=== PATIENT | male | born 1960 | race Caucasian/White ===

== ENCOUNTER → 2018-05-26 14:41 | Outpatient (CLI) | payer OTHER, SELFPAY ==
--- NOTE | 2018-05-26 14:44 | CT_ITS ---
EXAM: CT LUNG LOW DOSE WO CONTRAST TECHNIQUE: The exam was performed on a GE Light Speed [address] scanner using 2.92 mGy CTDI. A low dose helical CT CHEST was performed on a multi-detector scanner The LDCT was performed in a facility that meets the criteria for the screening program. Data regarding this exam was submitted to ACR which is an approved registry. The order for this exam indicates that it came as a result of a lung cancer screening counseling shard decision-making visit that included all the elements required of such a visit including smoking cessation. The radiologist interpreting this exam meets the CMS criteria for the LDCT lung cancer screening program. The exam is reported using the Lung-RADS classification scale and reported to the ACR registry. NOTE: This study was performed for the specific purposes of lung cancer screening and is not an alternative to diagnostic chest CT. RADIATION DOSE: CTDI vol(CT dose Index-volume) = 2.9mG DLP (Dose Length Product) = 110.72 mGcm COMPARISON: 08/21/[address] screening chest HISTORY: Smoker currently. One pack per day for 40 years; = 40 pack-year 5 7 male asymptomatic with greater than 30 pack-year smoking history FINDINGS: No worrisome nor appearing lung nodules or masses in either right or left lung/chest . A few tiny barely appreciable less than 3 mm peripheral nodules at the periphery of the RUL and ASIF towards apex axial image 19. These appear stable and most likely reflects some minor chronic changes, minor scarring, minor fibrocalcific changes. Some of these tiny foci are calcified suggesting granulomatous disease. Again these appear stable, benign with no progression. Continuing inferiorly continuing to the mid chest there is a small partially calcified granuloma subpleural location axial image 40. Stable. A larger 6 mm calcified granuloma, just lateral to the right yvan on axial image 44. With a similar calcified granuloma towards right CP angle, up to 7 mm mm size. These are benign features, appear stable but again noted. Left lung. Tiny calcified granuloma measuring less than 3 mm posterior ASIF axial image 54 COPD with centr lobar emphysematous changes. Scattered tiny blebs most evident about the periphery the lung price at apices. But also blebs seen scattered throughout the lung price for example bleb moderate bleb centrally at lower lobes Airways disease: Hyperinflation with attenuation of peripheral pulmonary vessels& Mild bronchial thickening consistent with obstructive chronic bronchitis Fibrosis: There are few scattered small pneumatoceles in the lung bases OTHER ANATOMIC REGIONS Lymph Nodes: Small Calcified mediastinal and right hilar nodes again observed reflecting old granulomatous disease. No significant enlarged lymph nodes evident. Only Scattered small nodes otherwise noted . Pleura: Unremarkable Cardiac: Upper normal size OTHER FINDINGS: No other pertinent findings evident ---------IMPRESSION: 1. Lung RADS Category: 2 Benign appearing nodules. Mainly note Benign granulomatous nodules . Follow-up in one year suggested 2. Other findings: Emphysematous change with obstructive chronic bronchitis and evidence of old granulomatous disease 3. Incidental 3.2 cm benign-appearing renal cyst at the lower posterior left kidney RECOMMENDATIONS: 12 month LDCT follow-up
== END ==
PROVIDERS: Family Provider Family Medicine; PCP Family Medicine; Visit Provider Family Medicine
DX: Z12.2 Encounter for screening for malignant neoplasm of respiratory organs (principal); Z87.891 Personal history of nicotine dependence

== ENCOUNTER → 2018-06-17 08:48 | Outpatient (POV) | payer OTHER, SELFPAY | PROVIDERS: Visit Provider Otolaryngology | DX: Z00.00 Encounter for general adult medical examination without abnormal findings (principal) ==

== ENCOUNTER → 2019-12-04 14:49 | Outpatient (CLI) | payer OTHER, SELFPAY ==
--- NOTE | 2019-12-04 14:53 | CT_ITS ---
PROCEDURE: CT LUNG SCREENING CLINICAL INDICATION: H/O NICOTINE DEPENDENCE Forty-one pack-year smoking history, asymptomatic for lung cancer COMPARISON: LUNGSCREEN CT lung screening from 05/26/2018 TECHNIQUE: The exam was performed on a GE Light Speed [address] scanner using 2.90 mGy CTDI. A low dose helical CT CHEST was performed on a multi-detector scanner. All CT scans at the facility use one or more dose reduction, viz: automated exposure control, ma/kV adjustment per patient size (including targeted exams where dose is matched to indication, i.e. head), or iterative reconstruction technique. The LDCT was performed in a facility that meets the criteria for the screening program. Data regarding this exam was submitted to ACR which is an approved registry. The order for this exam indicates that it came as a result of a lung cancer screening counseling shard decision-making visit that included all the elements required of such a visit including smoking cessation. The radiologist interpreting this exam meets the CMS criteria for the LDCT lung cancer screening program. The exam is reported using the Lung-RADS classification scale and reported to the ACR registry. NOTE: This study was performed for the specific purposes of lung cancer screening and is not an alternative to diagnostic chest CT. RADIATION DOSE: CTDI vol(CT dose Index-volume) = 2.90mG DLP (Dose Length Product) = 107.07 mGcm Lung Rads Category: FINDINGS: COPD with centrilobular emphysema the 5 mm fissural nodule right middle lobe. Scattered calcified granulomas. OTHER FINDINGS: Mild dilatation of the ascending aorta measuring up to 4.3 x 4.3 cm previously 4 x 4.2 cm. IMPRESSION: Lung rads category 2, benign findings Recommend annual screening LD CT The mild aneurysmal dilatation of the ascending aorta very slightly more prominent compared to the previous exam Dictated by: Issa Watson MD 12/06/2019 13:17 Electronically signed by Issa Watson MD in [place] 12/06/2019 13:17
== END ==
PROVIDERS: PCP Family Medicine; Visit Provider Family Medicine
DX: Z87.891 Personal history of nicotine dependence (principal); Z12.2 Encounter for screening for malignant neoplasm of respiratory organs

== ENCOUNTER → 2020-06-02 14:07 | Outpatient (CLI) | payer OTHER, SELFPAY | PROVIDERS: PCP Family Medicine; Visit Provider Family Medicine | DX: R05 Cough (principal) | CPT/HCPCS: 94060 ==

== ENCOUNTER → 2020-12-06 15:14 | Outpatient (CLI) | payer OTHER, SELFPAY ==
--- NOTE | 2020-12-06 15:18 | CT_ITS ---
PROCEDURE: CT LUNG SCREENING CLINICAL INDICATION: H/O NICOTINE DEPENDENCE Current smoker 45 pack year smoking history Prior on pacs COMPARISON: CT CT LUNG SCREENING from 12/04/2019 TECHNIQUE: The exam was performed on a GE Light Speed [address] scanner using 2.90 mGy CTDI. A low dose helical CT CHEST was performed on a multi-detector scanner. All CT scans at the facility use one or more dose reduction, viz: automated exposure control, ma/kV adjustment per patient size (including targeted exams where dose is matched to indication, i.e. head), or iterative reconstruction technique. The LDCT was performed in a facility that meets the criteria for the screening program. Data regarding this exam was submitted to ACR which is an approved registry. The order for this exam indicates that it came as a result of a lung cancer screening counseling shard decision-making visit that included all the elements required of such a visit including smoking cessation. The radiologist interpreting this exam meets the CMS criteria for the LDCT lung cancer screening program. The exam is reported using the Lung-RADS classification scale and reported to the ACR registry. NOTE: This study was performed for the specific purposes of lung cancer screening and is not an alternative to diagnostic chest CT. RADIATION DOSE: CTDI vol(CT dose Index-volume) = 2.90mG DLP (Dose Length Product) = 99.25 mGcm FINDINGS: COPD with centrilobular and paraseptal emphysema. Old granulomatous disease. No new suspicious nodules evident. OTHER FINDINGS: Mild fusiform dilatation of the ascending aorta 4.3 x 4.4 cm not significantly changed.. IMPRESSION: Lung-RADS Category 1 Negative Follow-up: Continue annual screening with LDCT in 12 months Dictated by: Issa Watson MD 12/09/2020 12:30 Issa Watson MD in [place] 12/09/2020 12:30
== END ==
PROVIDERS: PCP Family Medicine; Visit Provider Family Medicine
DX: Z87.891 Personal history of nicotine dependence (principal)
CPT/HCPCS: 71271

== ENCOUNTER → 2020-12-30 16:17 | Outpatient (CLI) | payer OTHER, SELFPAY | PROVIDERS: Visit Provider Internal Medicine Gastroenterology | DX: Z01.812 Encounter for preprocedural laboratory examination (principal); Z20.822 Contact with and (suspected) exposure to COVID-19; Z12.11 Encounter for screening for malignant neoplasm of colon | CPT/HCPCS: U0003 ==

== ENCOUNTER 2021-01-02 09:55 | Day surgery (SDC) | payer OTHER, SELFPAY ==
[2020-12-27 14:04] VITALS: BMI 28.8
[2021-01-02 10:30] VITALS: BP 143/91; PULSE 65; RESP 18; TEMP 36.5; O2SAT 98
--- NOTE | 2021-01-02 10:46 | HMH.ANESCL ---
[facility] Anesthesia Checklist - Patient Identification Patient Identification: Arm Band - Structural Data Admitted From: Home Planned Operative Procedure/s: Colonoscopy Consent for Planned Operative Procedure(s) Verified: Yes - NPO Status Verified Time NPO: 00:00 - Airway Assessment C-Spine Mobility Assessed: Yes TMJ Mobility Assessed: Yes Dentition: Dentures-good fit - Neurological Assessment Level of Consciousness: Awake Hx Seizures: No Numbness or tingling in extremities: No - Anesthesia Plan Anesthesia Risk discussed: Yes Anesthesia Plan: Verified ASA Class: II Anesthesia Type: MAC [facility] History I have reviewed the patient's past medical history: Yes Medical History: Denies:: Cancer, Diabetes Mellitus Type 1, Diabetes Mellitus Type 2, Internal Pacemaker, MRSA, Seizures *Have you ever received a pneumonia vaccine?: No *Have you received a flu vaccine this season?: Yes Anesthesia experience/problems:: None Other Surgeries: No: Pacemaker Amputation: No Fractures: No - *Social History Smoking Status: Current every day smoker Tobacco Type: cigarettes # Packs/Day (cigarettes): 1 Alcohol Intake: never Substance Use Type: denies use *Occupational Status:: employed Housing: house *Travel in the last 8 weeks: None Family Hx:: Unable to obtain
--- NOTE | 2021-01-02 11:49 | HMH.PROC ---
[facility] Procedure Note Procedure Note:: Colonoscopy Procedure Report: Colonoscopy Endoscopist: Joseph Kearns II, MD Referring physician: Silver Tanner MD Date of Procedure: January 02, 2021 Equipment: Olympus 190 variable stiffness pediatric colonoscope Sedation: MAC sedation Indication: Mr. Figueroa is a 60-year-old gentleman who is here for follow-up screening/surveillance colonoscopy. He had a colonoscopy in May 2011 (Dr. Calin Miranda M.D.) and had a single small (4 mm) polyp (tubular adenoma) removed. He reports no abdominal pain, weight loss, change in his bowel habits or rectal bleeding. He reports no family history of colon cancer. Procedure: Prior to the procedure, a history and physical exam was performed, and patient's medications and allergies were reviewed. The risks, benefits and alternatives of the sedation and procedure were discussed with the patient. All questions were answered and informed consent was obtained. The patient was brought to the procedure room. Patient identification and proposed procedure were verified by the physician and the nurse. The patient was placed in a left lateral decubitus position and the scope was passed under direct vision. Throughout the procedure, the patient's blood pressure, pulse, and oxygen saturations were monitored continuously. The colonoscopy was accomplished without difficulty. The patient tolerated the procedure well. Findings: On digital rectal examination there was normal rectal tone. There were no external hemorrhoids. The colonoscope was introduced through the anal canal to the rectum and advanced to the cecum. The ileocecal valve and appendiceal orifice were identified. The scope was advanced a short distance into the ileum which appeared grossly normal. The scope was then withdrawn into the colon. The cecum, ascending, transverse, descending, sigmoid and rectum were grossly normal. There were no mucosal abnormalities identified. Upon retroflexion within the rectum there were grade 1-2 internal hemorrhoids.The preparation was poor throughout with Sonoma Preparation Score of 5 out of 9. The cecal time was 10 minutes. Impression: 1. Poor bowel preparation 2. Normal colonoscopy 3. Grade 1-2 internal hemorrhoids Plan: Based upon the patient's poor bowel preparation, would still consider surveillance at 5 years especially with prior adenomatous polyp.
[2021-01-02 11:51] VITALS: BP 113/71; PULSE 71; RESP 12; TEMP 36.2; O2SAT 93
[2021-01-02 12:01] VITALS: BP 118/74; PULSE 60; RESP 16; O2SAT 98
[2021-01-02 12:11] VITALS: BP 131/87; PULSE 55; RESP 16; O2SAT 97
[2021-01-02 12:21] VITALS: BP 135/86; PULSE 66; RESP 16; TEMP 36.2; O2SAT 99
[2021-01-02 13:33] VITALS: O2SAT 97
== END 2021-01-02 12:22 | disposition home or self-care (01) ==
LOC: OUTP 09:56
PROVIDERS: PCP Family Medicine; Visit Provider Internal Medicine Gastroenterology
PROC: 0DJD8ZZ Inspection of Lower Intestinal Tract, Via Natural or Artificial Opening Endoscopic (ICD-10-PCS; CPT 45378; principal; 2021-01-02 11:00)
DX: Z12.11 Encounter for screening for malignant neoplasm of colon (principal); Z86.010 Personal history of colon polyps; K64.0 First degree hemorrhoids; Z72.0 Tobacco use; Z79.899 Other long term (current) drug therapy
CPT/HCPCS: 45378

== ENCOUNTER → 2021-01-24 16:10 | Outpatient (CLI) | payer OTHER, SELFPAY ==
--- NOTE | 2021-01-24 16:15 | XR_ITS ---
PROCEDURE INFORMATION: Exam: XR Right Knee Exam date and time: 01/24/2021 4:15 PM Age: 60 years old Clinical indication: Pain; Knee; Right; Additional info: Pain in RT knee TECHNIQUE: Imaging protocol: XR Right knee. Views: 3 views. COMPARISON: CR [id number] 04/12/2017 3:28 PM FINDINGS: Bones/joints: There is no evidence of acute fracture. There is no evidence of joint malalignment or dislocation. There are mild degenerative changes of the knee joint, predominantly involving the medial joint compartment. Small joint effusion. Soft tissues: There are no soft tissue masses or fluid collections. IMPRESSION: 1. No evidence of acute fracture. 2. No evidence of acute dislocation. 3. There are mild degenerative changes of the knee joint, predominantly involving the medial joint compartment. 4. Small joint effusion.
--- NOTE | 2021-01-24 16:15 | XR_ITS ---
PROCEDURE INFORMATION: Exam: XR Left Knee Exam date and time: 01/24/2021 4:15 PM Age: 60 years old Clinical indication: Pain; Knee; Left; Additional info: Pain in lt knee TECHNIQUE: Imaging protocol: XR Left knee. Views: 3 views. COMPARISON: No relevant prior studies available. FINDINGS: Bones/joints: There is no evidence of acute fracture. There is no evidence of joint malalignment or dislocation. Small joint effusion. Hypertrophic spurring noted along the superior pole of patella. Mild prepatellar soft tissue swelling. Soft tissues: There are no soft tissue masses or fluid collections. IMPRESSION: 1. No evidence of acute fracture. 2. No evidence of acute dislocation. 3. Small joint effusion. 4. Mild prepatellar soft tissue swelling.
== END ==
PROVIDERS: PCP Family Medicine; Visit Provider Family Medicine
DX: M25.562 Pain in left knee (principal); M25.561 Pain in right knee
CPT/HCPCS: 73562

== ENCOUNTER → 2021-09-16 08:40 | Outpatient (CLI) | payer OTHER, SELFPAY ==
[2021-09-16 09:27] LABS: Basophils # 0.1 K/mm3 (0-0.2); Basophils % 1.7 % (0.1-2.0); Eosinophils # 0.1 K/mm3 (0.0-0.4); Eosinophils % 2.1 % (0.1-12.0); Hemoglobin 16.2 g/dL (14.1-18.0); Lymphocytes # 1.3 K/mm3 (0.7-4.5); Lymphocytes % 24.2 % (10-50); Mean Corpuscular Hemoglobin 32.6 pg (27.0-31.2); Mean Corpuscular Volume 98.8 fl (80-94); Mean Platelet Volume 9.1 fl (7.4-10.4); Monocytes # 0.4 K/mm3 (0.1-1.0); Neutrophils # 3.6 K/mm3 (1.8-7.8); Platelet Count 250 K/mm3 (142-424); Red Blood Count 4.95 M/mm3 (4.60-6.20); Red Cell Distribution Width 14.9 % (11.5-17.5); White Blood Count 5.5 K/mm3 (4.8-10.8)
[2021-09-16 09:29] LABS: Chloride 106 mmol/L (98-107); Potassium 3.9 mmoL/L (3.5-5.1); Sodium 133 mmol/L (136-145)
[2021-09-16 09:32] LABS: Anion Gap 9.9 mEq/L (5-15); Blood Urea Nitrogen 24 mg/dl (9-20); Calcium 9.6 mg/dl (8.4-10.2); Carbon Dioxide 21 mmol/L (22.0-30.0); Estimated Glomerular Filt Rate 98 ml/min (>60); GFR (African American) 119 ML/MIN (>60); Glucose 177 mg/dl (74-100)
== END ==
PROVIDERS: PCP Family Medicine; Visit Provider Surgery
DX: Z01.812 Encounter for preprocedural laboratory examination (principal); Z11.52 Encounter for screening for COVID-19; L72.9 Follicular cyst of the skin and subcutaneous tissue, unspecified
CPT/HCPCS: 80048; 85025; C9803; U0003; U0005

== ENCOUNTER 2021-09-19 06:13 | Day surgery (SDC) | payer OTHER, SELFPAY ==
[2021-09-19 06:32] VITALS: BP 147/88; PULSE 85; RESP 18; TEMP 37.1; O2SAT 96; BMI 28.0
--- NOTE | 2021-09-19 07:08 | HMH.GSHP ---
HPI HPI: Patient is a 61-year-old male from [facility] referred by Bailey Ahmadi for cyst on his back. He states that he has had a cyst on the lower thoracic area for about 1 year. He states that it has intermittently become infected. He had undergone incision and drainage about [address] Tanner. Recently he had a recurrent infection and required incision and drainage by Bailey Ahmadi. He has been on antibiotics for about 10 days. He states the area is somewhat tender concerning for recurrent infection. [facility] History I have reviewed the patient's past medical history: Yes Medical History: Denies:: Cancer, Diabetes Mellitus Type 1, Diabetes Mellitus Type 2, Internal Pacemaker, MRSA, Seizures *Have you ever received a pneumonia vaccine?: No *Have you received a flu vaccine this season?: Yes Other Medical History: Denies: Blood Transfusion Reaction Other Surgeries: Yes: Colonoscopy. No: Pacemaker Amputation: No Fractures: No - *Social History Last grade of school completed: High school graduate Smoking Status: Current every day smoker Tobacco Type: cigarettes # Packs/Day (cigarettes): 1 Alcohol Intake: never Substance Use Type: denies use *Occupational Status:: employed Housing: house *Travel in the last 8 weeks: None Family Hx:: Unable to obtain Review of Systems - Review of Systems Review of systems:: pertinent systems reviewed and negative unless documented below Meds Home Medications Medication Instructions Recorded Confirmed Type Amlodipine Besylate 10 mg PO DAILY 01/02/21 08/14/21 History Atorvastatin Calcium [Lipitor 20mg 20 mg PO HS 01/02/21 08/14/21 History Tablet*] Loratadine [Claritin 10mg 10 mg PO DAILY 01/02/21 08/14/21 History Tablet] Meloxicam 15 mg PO DAILY 01/02/21 08/14/21 History Montelukast Sodium 10 mg PO DAILY 01/02/21 08/14/21 History Zolpidem Tartrate 10 mg PO HS 01/02/21 08/14/21 History Sulfamethoxazole/Trimethoprim 1 tab PO BID 09/19/21 History [Sulfamethoxazole-Tmp Ds Tablet*] Allergies Allergy/AdvReac Type Severity Reaction Status Date / Time No Known Allergies Allergy Verified 08/14/21 10:20 Exam Vital signs and Labs for Last 24 Hours: Temp Pulse Resp BP Pulse Ox 98.8 F 85 18 147/88 H 96 09/19/21 06:32 09/19/21 06:32 09/19/21 06:32 09/19/21 06:32 09/19/21 06:32 I & O for Last 24 hours: Intake & Output 09/16/21 09/17/21 09/18/21 09/19/21 11:59 11:59 11:59 11:59 Weight 190 lb - Constitutional no acute distress - *Routine HEENT Exam Head: Present: normocephalic Eye: Present: EOMI, PERRL ENT: Present: mucous membranes moist - *Routine Neck Exam Present: supple. Absent: lymphadenopathy - *Routine Respiratory Exam Present: CTA bilaterally - *Routine Cardiovascular Exam Present: RRR - *Routine Abdominal Exam Present: soft, normoactive bowel sounds. Absent: tenderness - *Routine Rectal Exam Rectal:: deferred - *Routine Genitalia Exam Genitalia:: deferred - *Routine Extremities Exam Absent: cyanosis, clubbing, edema - *Routine Skin Exam Present: warm. Absent: rash Comments: Left Lower back area of sebaceous cyst with scar tissue from repeated infection and previous I&D - *Routine Neurological Exam Present: alert, oriented X3 Assessment and Plan - Assessment and plan all Dx Assessment and Plan for all problems:: Patient has sebaceous cyst with surrounding scar tissue from previous infection and I&D. Plan for excision, hopefully with primary closure.
--- NOTE | 2021-09-19 09:02 | P.PN_ITS ---
[facility] Anesthesia Checklist - Patient Identification Patient Identification: Arm Band, Verbal (Name & ) - Structural Data Admitted From: Home Planned Operative Procedure/s: Excision of back cyst Consent for Planned Operative Procedure(s) Verified: Yes Verified Documents: Surgical Consent - NPO Status Verified Time NPO: 00:00 - Additional verifications Anesthesia Reactions: No Hx Blood Transfusions: No Blood Transfusion Reaction: No - Airway Assessment C-Spine Mobility Assessed: Yes TMJ Mobility Assessed: Yes Dentition: Partials - Anesthesia Plan Anesthesia Risk discussed: Yes ASA Class: III Anesthesia Type: MAC [facility] History Medical History: Denies:: Cancer, Diabetes Mellitus Type 1, Diabetes Mellitus Type 2, Internal Pacemaker, MRSA, Seizures *Have you ever received a pneumonia vaccine?: No *Have you received a flu vaccine this season?: Yes Other Medical History: Denies: Blood Transfusion Reaction Anesthesia experience/problems:: none Other Surgeries: Yes: Colonoscopy. No: Pacemaker Amputation: No Fractures: No - *Social History Last grade of school completed: High school graduate Smoking Status: Current every day smoker Tobacco Type: cigarettes # Packs/Day (cigarettes): 1 Alcohol Intake: never Substance Use Type: denies use *Occupational Status:: employed Housing: house *Travel in the last 8 weeks: None Family Hx:: Unable to obtain
[2021-09-19 09:30] VITALS: BP 84/57; PULSE 81; RESP 18; TEMP 36.7; O2SAT 97
--- NOTE | 2021-09-19 09:32 | P.OP_ITS ---
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 He states that he has had a cyst on the lower thoracic area for about 1 year. He states that it has intermittently become infected. He had undergone incision and drainage about [address] Tanner. More recently he had a recurrent infection and required incision and drainage by Bailey Ahmadi. He has been on antibiotics. When he was seen in the office about 4 or 5 weeks ago the area was somewhat tender and mildly infected. Options were discussed with the patient. Plan was made for excision after balaji ral weeks with possible primary closure. Upon presentation the day of procedure the area appeared to be not infected. There was a cyst which was somewhat ill- defined with an relatively extensive amount of surrounding scar tissue from previous incision and drainage and infection. Operative findings:: Consistent with ruptured sebaceous cyst Operative note:: Consent was obtained patient was taken the operating room. Adequate intravenous sedation was achieved. He was positioned in lateral position. The area was prepped and draped in the standard surgical fashion. Lesion was marked with a skin marker for planned elliptical incision encompassing the palpable cyst and skin punctum. Local anesthetic was infiltrated. Elliptical incision was performed. All of the scar tissue was not able to be excised. Dissection was carried down through full-thickness of the skin to the subcutaneous tissue. There was some fibrous scar tissue encountered. Cyst capsule was identified. There was evidence of prior rupture. It was excised along with the overlying skin tissue and the additional cyst wall. The wound was irrigated. Hemostasis was achieved with electrocautery. The deep dermal tissues were reapproximated with interrupted 2-0 Vicryl. Skin was closed with interrupted 3-0 nylon. Clean dry sterile dressing was applied. Condition: stable Disposition: PACU Specimens:: Sebaceous cyst. Complications:: None immediately apparent
[2021-09-19 09:45] VITALS: BP 120/78; PULSE 74; RESP 18; O2SAT 99
[2021-09-19 10:00] VITALS: BP 141/87; PULSE 66; RESP 18; O2SAT 100
[2021-09-19 10:10] VITALS: BP 137/94; PULSE 69; RESP 18; O2SAT 100
== END 2021-09-19 10:10 | disposition home or self-care (01) ==
LOC: OR 06:15
PROVIDERS: PCP Family Medicine; Visit Provider Surgery
PROC: (CPT 11406; principal; 2021-09-19 07:30)
DX: L72.0 Epidermal cyst (principal); Z72.0 Tobacco use; Z79.899 Other long term (current) drug therapy
CPT/HCPCS: 11406; 12031; 96374; J2405

== ENCOUNTER → 2022-01-12 14:11 | Outpatient (CLI) | payer OTHER, SELFPAY ==
--- NOTE | 2022-01-12 14:14 | CT_ITS ---
FINAL REPORT CLINICAL HISTORY: 61-year-old current smoker with a 40 pack-year history. FINDINGS: Axial images were obtained from the lung apex to the mid abdomen by computed tomography. Low-dose protocol was utilized. CTDl vol(mGy): 2.90 DLP (mGy-cm): 96.38 FINDINGS: There is no axillary adenopathy. There is no hilar or mediastinal adenopathy. An ascending aorta aneurysm is stable at 4.4 cm. The heart size is normal. There is no pericardial or pleural effusion. Limited images of the upper abdomen are unremarkable. Lung window images demonstrate no suspicious infiltrate or nodule. There is moderate emphysema. There is mild scarring. There are multiple calcified granulomas. IMPRESSION: Lung RADS category 1. Recommend 12 month follow-up low-dose chest CT. Reviewed, Interpreted and Dictated by Shan Bach III, MD Transcribed by Kerry Nunez Authenticated and . [facility]
== END ==
PROVIDERS: PCP Family Medicine; Visit Provider Family Medicine
DX: Z87.891 Personal history of nicotine dependence (principal); Z12.2 Encounter for screening for malignant neoplasm of respiratory organs
CPT/HCPCS: 71271

== ENCOUNTER → 2022-11-07 15:01 | Outpatient (CLI) | payer OTHER, SELFPAY ==
--- NOTE | 2022-11-07 | CA_ITS ---
FINAL REPORT TECHNIQUE: Multiple transverse and longitudinal images were performed of right the femoral-popliteal deep venous system with augmentation and compression maneuvers. CLINICAL HISTORY: HTN, hyperlipidemia, smoker, right knee replacement 08/16/22. 10/29/22 patient went for a walk and right leg started hurting. States he had sharp pain in right calf that extended into the foot. COMPARISON: none FINDINGS: Right lower extremity duplex ultrasound demonstrates normal flow in the deep venous system. There is no abnormal echogenicity to suggest thrombus. There is normal compression and augmentation. IMPRESSION: No evidence of right DVT. Reviewed, Interpreted and Dictated by Radha Anthony MD Transcribed by Padmaja Lugo Authenticated and [facility]
== END ==
PROVIDERS: PCP Family Medicine; Visit Provider Physician Assistant
DX: M79.661 Pain in right lower leg (principal)
CPT/HCPCS: 93971

== ENCOUNTER → 2023-06-11 15:15 | Outpatient (CLI) | payer OTHER, SELFPAY ==
--- NOTE | 2023-06-11 15:19 | CT_ITS ---
FINAL REPORT TECHNIQUE: Axial images were obtained from the lung apex to the mid abdomen by computed tomography. This study was performed with techniques to keep radiation doses as low as reasonably achievable (ALARA). Individualized dose reduction techniques using automated exposure control or adjustment of mA and/or kV according to the patient's size were employed. CLINICAL HISTORY: H/O TOBACCO USE, current smoker, 1/2 pack per day for 40 years, pts brother had lung cancer COMPARISON: 01/12/2022 FINDINGS: CHEST CT LOW DOSE CTDI vol (mGy): 2.90 DLP (mGy-cm): 96.38 There is no axillary adenopathy. There is no hilar or mediastinal adenopathy. The ascending aorta is aneurysmal measuring 4.4 cm, stable. The heart is normal in size. There is no pericardial or pleural effusion. Lung window images demonstrate no suspicious infiltrate or nodule. There are several calcified granulomas. Moderate emphysema is identified. Limited images of the upper abdomen are unremarkable. IMPRESSION: Lung RADS category 1. Recommend 12 month follow-up low-dose chest CT. Reviewed, Interpreted and Dictated by Shan Bach III, MD Transcribed by Gabriela Brown Authenticated and [facility]
== END ==
PROVIDERS: PCP Family Medicine; Visit Provider Family Medicine
DX: Z87.891 Personal history of nicotine dependence (principal); Z12.2 Encounter for screening for malignant neoplasm of respiratory organs
CPT/HCPCS: 71271

== ENCOUNTER 2024-06-18 15:12 | Outpatient (CLI) | payer BC, SELFPAY ==
--- NOTE | 2024-06-18 15:14 | CT_ITS ---
FINAL REPORT TECHNIQUE: Thin section axial images were obtained from the lung apices to the upper abdomen by computed tomography. Reformatted images were obtained and reviewed. This study was performed with techniques to keep radiation doses al low as reasonably achievable (ALARA). Individualized dose reduction techniques using automated exposure control or adjustment of mA and/or kV according to the patient's size were employed. CLINICAL HISTORY: .screening, current smoker 1 ppd x45 years COMPARISON: 06/11/2023 FINDINGS: CHEST CT LOW DOSE 64-year-old male, current smoker, 24-jbow-ldri history CTDI vol (mGy): 2.9 DLP (mGy-cm): 107.59 There is no axillary adenopathy. There is no mediastinal or hilar mass or adenopathy. The heart is normal in size. There is an ascending aortic aneurysm, which measures 4.5 centimeters in diameter, stable since the prior CT of 2022. There is no pericardial or pleural effusion. There is moderate emphysema and mild pulmonary scarring. Lung window images demonstrate numerous calcified granulomas. No suspicious nodule is seen.. Limited images of the upper abdomen reveal a partially visualized low-attenuation focus in the left kidney, 38 mm in size, which cannot be accurately characterized without the administration of intravenous contrast. This area was not imaged on the prior LDCT of 2022. IMPRESSION: Lung-RADS category 1 S, the S designation for the partially visualized mass in the left kidney.. Recommend 12 month follow up low dose chest CT. Partially visualized low-attenuation focus in the left kidney, 30 mm in diameter, not accurately characterized without intravenous contrast administration. Would consider renal mass protocol CT for further evaluation. Reviewed, Interpreted and Dictated by Shan Bach III, MD Transcribed by Jessica Cheatham Authenticated and [facility]
== END 2024-06-18 23:59 | disposition home or self-care (01) ==
LOC: RAD 15:13
PROVIDERS: PCP Family Medicine; Visit Provider Family Medicine
DX: Z87.891 Personal history of nicotine dependence (principal); Z12.2 Encounter for screening for malignant neoplasm of respiratory organs
CPT/HCPCS: 71271

== ENCOUNTER 2024-07-15 08:34 | Outpatient (CLI) | payer BC, SELFPAY ==
--- NOTE | 2024-07-15 08:40 | CT_ITS ---
FINAL REPORT TECHNIQUE: Pre and post contrast images of the abdomen were obtained. IV contrast was administered. Coronal and sagittal reformatted images were also obtained and reviewed.This study was performed with techniques to keep radiation doses as low as reasonably achievable (ALARA). Individualized dose reduction techniques using automated exposure control or adjustment of mA and/or kV according to the patient's size were employed. CLINICAL HISTORY: KIDNEY MASS COMPARISON: CT low-dose 06/18/2024 FINDINGS: The lung bases are clear. The heart is normal in size. The liver has an unremarkable appearance, without evidence of mass or biliary ductal dilatation. The spleen is unremarkable. No adrenal mass is present. The pancreas has an unremarkable appearance. There are multiple left renal masses. Two have the appearance of simple cysts. The mass in the upper pole of the left kidney measures 30 mm and does not have the appearance of the cyst. This shows diffuse contrast-enhancement and is consistent with renal neoplasm. A second mass in the lower pole of the left kidney measures 17 mm and also shows diffuse enhancement, consistent with renal neoplasm. There is a less than 1 cm cyst in the right kidney. There is no hydronephrosis. The renal veins are normal. The aorta is normal in caliber. Vascular calcifications are noted. There is no free fluid or adenopathy. The appendix is normal. There is a small umbilical hernia containing fat. There are no other areas of contrast-enhancement. IMPRESSION: Two left renal masses consistent with renal neoplasm. Reviewed, Interpreted and Dictated by Shan Bach III, MD Transcribed by Padmaja Lugo Authenticated and [facility]
[2024-07-15 09:10] LABS: Blood Urea Nitrogen 18 mg/dl (9-20); Estimated Glomerular Filt Rate 75 ml/min (>60); GFR (African American) 91 ML/MIN (>60)
[2024-07-15] MEDS: IOPAMIDOL-370 (76%);100ML BOTTLE 75 ML IV (09:42)
[2024-07-15] MEDS: SODIUM CHLORIDE 0.9% 10ML SYR (RAD ONLY) 10 ML IV (09:42)
== END 2024-07-15 23:59 | disposition home or self-care (01) ==
LOC: RAD 08:35
PROVIDERS: PCP Family Medicine; Visit Provider Family Medicine
DX: D41.02 Neoplasm of uncertain behavior of left kidney (principal)
CPT/HCPCS: 36415; 74170; 82565; 84520; Q9967

== ENCOUNTER 2025-02-24 07:34 | Outpatient (CLI) | payer BC, SELFPAY ==
--- OUTSIDE RECORDS SUMMARY | 2024-09-09 07:30 | XMS_ITS ---
Author Organization [facility] Address [address] [facility] [address] [place] [phone] Care Team Providers Care Manager Fraud Name Role Phone Silver Tanner Primary Care Provider [phone] Allergies No Known Allergies Results Component Value [...] 09/09/2024 Encounters Encounter Location Date Provider Diagnosis [facility] [address] [id number] 09/09/2024 Silver Tanner Acute URI J06.9 and [...] [address], [address], [place], [place], [phone], Progress Notes * Devin FIGUEROADOB:1960 (64 yo M)Acc No.[id number]:09/09/2024 Progress Notes Patient: Devin BROWNE Provider: Ronnie Tanner M.D. :1960 A ge:64 Y S ex:Male Date:09/09/2024 Address:[address] [place] [address] [place], [place], [id number] Subjective: * Chief Complaints: * 1 . [...] yes. Marital Status: . Occupation: [employer] in [place], [place]. Past smoking status: yes, PPD:1 , [...] * Procedure Codes: 9 4760 [place], [address] CAPILLARY BLOOD DRAW, 28859 CBC WITH AUTO DIFF * Follow Up: v ia phone to report progress * Images: Billing Information: * Visit Code: 87039 Office Visit, Est Pt., Level 3. * Procedure Codes: [address] [place]. [address] CAPILLARY BLOOD DRAW. 89950 CBC WITH AUTO DIFF. * Electronic signature of Maribell Tanner MD on 02/24/2025 at 07:37 AM EDT Sign off status: Pending * Provider: Ronnie Tanner M.D. Date: 0 09/09/2024 Generated for Madalyn hernandez/Salma/eTransmitting on: 0 02/24/2025 07:37 AM EDT History and Physical Notes * [...]
--- OUTSIDE RECORDS SUMMARY | 2024-11-25 12:15 | XMS_ITS ---
Author Organization [facility] Address [address] [facility] [address] [place], [place] [id number] Care Team Providers Care Lockstitch Machine Operator Name Role Phone Silver Tanner Primary Care Provider [phone] Allergies No Known Allergies Results Component Value Reference Range Notes P-Comprehensive Metabolic Pa flaco (CMP) Reviewed date:12/01/2024 04:46:42 PM Interpretation:Cr 1.57, gfr 59 Performing Lab: Notes/Report: Test performed by [facility] [address] [place] [address] , [address], [place] [address] Renaldo Schwab MD, [employer] Supervisor CLIA: [id number] Sodium 140 135-145 mmol/L Potassium 4.4 3.5-5.3 [...] Interpretation:6.0 Performing Lab: Notes/Report: Test performed by [facility] [address] [place] [address] [address] Renteria C, [place] [address] Renaldo Schwab MD, [employer] Supervisor CLIA: [id number] Hemoglobin A1C 6.0 <5.7 % The following HbA1c ranges recommended by the [place] [employer] (ADA) may be used as an aid in the diagnosis of diabetes mellitus. HbA1c Suggested Diagnosis >=6.5% Diabetic 5.7% - 6.4% Pre-Diabetic <5.7% Non-Diabetic P-Lipid Panel Reviewed date:12/01/2024 04:46:42 PM Interpretation:trigs 178 Performing Lab: Notes/Report: Test performed by [facility] [address] [place], [place] [address] [place] Melissa Renteria C, [place] [address] Renaldo Schwab MD, Automobile Body Repair Supervisor CLIA: [id number] Cholesterol 149 <200 mg/dL Triglycerides 178 <150 [...] Interpretation:Normal Performing Lab: Notes/Report: Test performed by [facility] , [address], [place] [address] Renaldo Schwab MD, Automobile [employer] Rep[employer] Supervisor CLIA: [id number] PSA 0.56 <4.00 ng/mL Please note this is an ultrasensitive PSA assay with a lower limit of detection of 0.014 ng/mL. This test is performed by the [employer] ECLIA methodology. Values obtained with different assay methods or kits cannot be directly compared. P-TSH reflex to FT4 Reviewed date:12/01/2024 04:46:43 PM Interpretation:Normal Performing Lab: Notes/Report: Test performed by [facility] , [address], [place] [address] Renaldo Schwab MD, Automobile [employer] Rep[employer] Supervisor CLIA: [id number] TSH reflex to FT4 1.79 0.43-5.25 mU/L P-Microalbumin/Creatinine, R andom Urine Sample Reviewed date:12/01/2024 04:46:43 PM Interpretation:a/c 75 Performing Lab: Notes/Report: Test performed by [facility] , [address], [place] [address] Renaldo Schwab MD, Automobile Body Repair Supervisor CLIA: [id number] Albumin/Creatinine Ratio, Urine 75 0-30 ug/mg Microalbumin, Urine, Random 9.9 Creatinine, Urine 132.0 P-Uric Acid Reviewed date:12/01/2024 04:46:43 PM Interpretation:Normal Performing Lab: Notes/Report: Test performed by [facility] , [address], [place] [address] Renaldo Schwab MD, [employer] Body Rep[employer] Supervisor CLIA: [id number] Uric Acid 6.6 3.4-8.0 mg/dL Estimated Average Glucose Reviewed date:12/01/2024 04:46:43 PM Interpretation:125 Performing Lab: Notes/Report: Test performed by [facility] [address] [place] [address] , [address], [place] [address] Renaldo Schwab MD, Automobile Body Repair Supervisor CLIA: [id number] Estimated Average Glucose (eAG) 125 Estimated Average [...] W/U Status Risk Notes Problem Vitamin D deficiency (91945917) Vitamin D deficiency, unspecified (E55.9) Active confirmed Problem BMI 30.0-30.9,adult (Z68.30) Active confirmed Vital Signs Blood pressure systolic 130 mm Hg 11/26/19 25 Blood pressure diastolic 84 mm Hg 025 Heart Rate 82 /min 11/25/2024 Height 69 in 11/25/2024 Weight 204.4 lbs 11/25/2024 BMI 30.18 kg/m2 11/25/2024 Encounters Encounter Location Date Provider Diagnosis Satya [address] [facility] [facility] [address] [facility] [address] [place] [phone] 11/25/2024 Silver Tanner Essential hypertensi on I10 [...] Name:Silver briggs, 05/26/2025 04:15:00 PM, [address] [facility], [address], [place], [phone], Progress Notes * Devin GAGEDOB:1960 (64 yo M)Acc No.[id number]:11/25/2024 Progress Notes Patient: Devin BROWNE Provider: Ronnie Tanner M.D. :1960 A ge:64 Y S ex:Male Date:11/25/2024 Address:[address] [place] [address], [id number] Subjective: * Chief Complaints: * 1 . [...] yes. Marital Status: . 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 Past smoking status: yes, PPD:1 , [...] /p nephrectomy - Z90.5 8 . B MS 30.0-30.9,adult - Z68.30 ? Plan: * Treatment: [...] stimated Average Glucose 125 - mg/dL * [facility], IT support 11/27/2024 09:30:14 : This order was created by the Interface. Kayley Morgan 12/01/2024 04:46:36 PM > See phone encounter * Procedure Codes: 3 075F SYST BP GE 130 - 139MM HG, 3079F DIAST BP 80-89 MM HG, 3044F HG A1C LEVEL LT 7.0% * Follow Up: 6 Months * Images: Billing Information: * Visit Code: 04167 Office Visit, Est Pt., Level 4. * Procedure Codes: 3075F SYST BP GE 130 - 139MM HG. 3079F DIAST BP 80-89 MM HG. 3044F HG A1C LEVEL LT 7.0%. * Electronic signature of Maribell Tanner MD on 02/24/2025 at 07:37 AM EDT Sign off status: Pending * Provider: Ronnie Tanner M.D. Date: 0 11/25/2024 Generated for Madalyn ng/Faxing/eTransmitting on: 0 02/24/2025 07:37 AM EDT History [...]
--- OUTSIDE RECORDS SUMMARY | 2025-02-03 12:30 | XMS_ITS ---
[facility] [address] [place] [id number] Care Team Providers Care Upholstery Instructor Name Role Phone Ciro Silver Primary Care Provider [phone] Bailey Ahmadi Unavailable [phone] Allergies No Known Allergies Reason For Referral Diagnosis 1 Hernia (K46.9) Referral Organization [facility] Referring Provider First Name Bailey Referring Provider Last Name Daiana Referring Provider Speciality Physician Videotape Recording Engineer Referred Provider Specialty General Surg simba General Notes Bailey Ahmadi 04:28:51 PM >Pt needs to see Dr. Chamberlain or Liz. Please call patient after 4pm., Nayeli Carson 02/04/2025 09:24:08 AM > lv for [...] [address] [place], [place] [phone] 02/03/2025 Bailey Ahmadi Hernia K46.9 Assessments Encounter Date Diagnosis (ICD Code) Assessment Notes Treatment Notes Treatment Clinical Notes Section Notes 02/03/2025 Hernia (ICD-10 - K46.9) Plan Of Treatment Referrals Referral Date Details 02/03/2025 02/03/2025 Next Appt Details Follow Up: with surgery, Ana Cristina son: Provider Name:Silver Alexander , 05/26/2025 04:15:00 PM, [address], [address], [place], [place], [id number], Progress Notes * Devin GAGEDOB:1960 (64 yo M)Acc No.[id number]:02/03/2025 Progress Notes Patient: Devin BROWNE Provider: KISHA Pina :1960 A ge:64 Y S ex:Male Date:02/03/2025 Address:[address] [place], [place] [id number] Pcp:Silver Tanner Subjective: * Chief Complaints: * [...] yes. Marital Status: . 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 Past smoking status: yes, PPD:1 , [...] * Images: Billing Information: * Visit Code: 02120 Office Visit, Est Pt., Level 3. * Procedure Codes: * Electronic signature of KISHA Ndiaye on 02/24/2025 at 07:36 AM EDT Sign off status: Pending * Provider: KISHA Pina Date: 0 02/03/2025 Generated for Madalyn hernandez/Salma/eTransmitting on: 0 02/24/2025 07:36 AM EDT History and Physical Notes * [...]
--- OUTSIDE RECORDS SUMMARY | 2025-02-24 07:37 | XMS_ITS | Data Portability ---
Author Organization [facility] [place] & RUBEN Ken ADMIN Address [address] [place] [id number] Assessment No assessment recorded. Plan of Treatment Reminders Order Date Submit Date Provider Last Modified By Organization Details Last Modified Time Details Appointments OV EST 15 2024 10:00A M FLORENCE SIMMONS MD Not available Not available Not available Lab urinalysi s, dipstick 2024 025 [email or web address] [facility], [address], [place], [address], 08/27/2024 11:04:48 culture, urine 2024 025 [email or web address] [facility] (Registration ), [address], [place], [address], 08/31/2024 08:19:49 CBC 2023 024 [facility] (Registration ), [address], [place], [address], 07/31/2024 13:00:03 CMP, serum or plasma 2023 024 [facility] (Registration ), [address] [place], [address], 07/31/2024 12:58:52 PSA, serum or plasma 2023 024 [facility] (Registration ), [address], [place], [address], 07/31/2024 12:58:54 Referral None recorded. Procedures bladder scan (PROC) 2024 025 [email or web address] [facility], [address] [facility] [place], [address], 08/27/2024 11:04:48 bladder scan (PROC) 2023 024 [email or web address] [facility], [address] [facility] [address], [place], [address], 07/31/2024 12:06:37 Surgeries nephrecto my, hand assisted laparosco pic (SURG) 2023 024 [email or web address] Not available 08/19/2024 11:48:44 Imaging None recorded. Medication Orders None recorded. Patient TargetsNo targets recorded. Patient InstructionsNo instructions recorded. Reason for Referral None Reported. Results Created Date Observation Date Name Description Value Unit Range Abnormal Flag Note LastModifiedBy Organization Detail LastModifiedTime 07/31/20 24 07/31/2024 CBC NO DIFF (HEMO GRAM) WBC 5.0 K/uL 4.0-10 .5 Not Available [facility] ([facility]) [address] [place], [address], 07/31/2024 12:10:10 07/31/20 24 07/31/2024 CBC NO DIFF (HEMO GRAM) RBC 5.1 M/mm3 4.7-6. 1 Not Available [facility] ([facility]) [address] [place], [address], 07/31/2024 12:10:10 07/31/20 24 07/31/2024 CBC NO DIFF (HEMO GRAM) HGB 15.7 gm/dL 13.5-1 8.0 Not Available [facility] ([facility]) [address] [place], [address], 07/31/2024 12:10:10 07/31/20 24 07/31/2024 CBC NO DIFF (HEMO GRAM) HCT 48.2 % 42.0-5 2.0 Not Available [facility] ([facility]) [address], [place], [address], 07/31/2024 12:10:10 07/31/20 24 07/31/2024 CBC NO DIFF (HEMO GRAM) MCV 95.1 fL 78-100 Not Available [facility] ([facility]) [address], [place], [address], 07/31/2024 12:10:10 07/31/20 24 07/31/2024 CBC NO DIFF (HEMO GRAM) MCH 31.0 pg 27-31 Not Available [facility] ([facility]) [address], [place], [address], 07/31/2024 12:10:10 07/31/20 24 07/31/2024 CBC NO DIFF (HEMO GRAM) MCHC 32.6 g/dL 32-36 Not Available [facility] ([facility]) [address], [place], [address], 07/31/2024 12:10:10 07/31/20 24 07/31/2024 CBC NO DIFF (HEMO GRAM) RDW 14.2 % 11.5-1 4.0 high Not Available [facility] ([facility]) [address], [place], [address], 07/31/2024 12:10:10 07/31/20 24 07/31/2024 CBC NO DIFF (HEMO GRAM) platelet count 206 K/uL 150-45 0 Not Available [facility] ([facility]) [address] [place], [address], 07/31/2024 12:10:10 07/31/20 24 07/31/2024 CBC NO DIFF (HEMO GRAM) MPV 9.5 fL 6-9.5 Not Available [facility] ([facility]) [address], [place], [address], 07/31/2024 12:10:10 07/31/20 24 07/31/2024 CBC NO DIFF (HEMO GRAM) manual differential NO Not Available [facility] ([facility]) [address] , [place], [address], 07/31/2024 12:10:10 07/31/20 24 07/31/2024 COMP METAB OLIC PANEL sodium 138 mmol/ L 136-14 5 Not Available [facility] ([facility]) [address] , [place], [address], 07/31/2024 12:58:52 07/31/20 24 07/31/2024 COMP METAB OLIC PANEL potassium 4.0 mmol/ L 3.6-5. 0 Not Available [facility] ([facility]) [address] , [place], [address], 07/31/2024 12:58:52 07/31/20 24 07/31/2024 COMP METAB OLIC PANEL chloride 104 mmol/ L 98-107 Not Available [facility] ([facility]) [address] , [place], [address], 07/31/2024 12:58:52 07/31/20 24 07/31/2024 COMP METAB OLIC PANEL carbon dioxide 23.5 mmol/ L 21.0-3 2.0 Not Available [facility] ([facility]) [address] , [place], [address], 07/31/2024 12:58:52 07/31/20 24 07/31/2024 COMP METAB OLIC PANEL anion gap 14.5 Not Available [facility] ([facility]) [address] , [place], [address], 07/31/2024 12:58:52 07/31/20 24 07/31/2024 COMP METAB OLIC PANEL glucose 95 mg/dL 70-120 Not Available [facility] ([facility]) [address] , [place], [address], 07/31/2024 12:58:52 07/31/20 24 07/31/2024 COMP METAB OLIC PANEL BUN 20 mg/dL 7-18 high Not Available [facility] ([facility]) [address], [place], [address], 07/31/2024 12:58:52 07/31/20 24 07/31/2024 COMP METAB OLIC PANEL creatinine 1.0 mg/dL 0.6-1. 3 Not Available [facility] ([facility]) [address] , [place], [address], 07/31/2024 12:58:52 07/31/20 24 07/31/2024 COMP METAB OLIC PANEL glomerular filtration rate 85 mlper min 60- GFR LIMIT ATION : The eGFR equat ion CKD-E PI 2020 is not appli cable for pedia tric patie nts or great er than 90 years of age. The follo wing condi tions may alter the GFR resul t: extre mes in body size, malnu triti on or obesi ty, skele ralph muscl e disea se, parap legia or quadr ipleg ia, veget lisy diet or rapid ly [place] ing kiney funct ion. Not Available [facility] ([facility]) [address] , [place], [address], 07/31/2024 12:58:52 07/31/20 24 07/31/2024 COMP METAB OLIC PANEL total protein 8.2 g/dL 6.4-8. 2 Not Available [facility] ([facility]) [address] , [place], [address], 07/31/2024 12:58:52 07/31/20 24 07/31/2024 COMP METAB OLIC PANEL albumin 4.0 g/dL 3.4-5. 0 Not Available [facility] ([facility]) [address] , [place], [address], 07/31/2024 12:58:52 07/31/20 24 07/31/2024 COMP METAB OLIC PANEL globulin 4.2 Not Available [facility] ([facility]) [address], [place], [address], 07/31/2024 12:58:52 07/31/20 24 07/31/2024 COMP METAB OLIC PANEL alb/glob ratio 1.0 0.7-2 Not Available [facility] ([facility]) [address] , [place], [address], 07/31/2024 12:58:52 07/31/20 24 07/31/2024 COMP METAB OLIC PANEL calcium 9.0 mg/dL 8.5-10 .5 Not Available [facility] ([facility]) [address] , [place], [address], 07/31/2024 12:58:52 07/31/20 24 07/31/2024 COMP METAB OLIC PANEL bilirubin total 1.00 mg/dL 0.10-1 .00 Not Available [facility] ([facility]) [address] , [place], [address], 07/31/2024 12:58:52 07/31/20 24 07/31/2024 COMP METAB OLIC PANEL AST (SGOT) 34 U/L 0-37 Not Available [facility] ([facility]) [address] , [place], [address], 07/31/2024 12:58:52 07/31/20 24 07/31/2024 COMP METAB OLIC PANEL ALT (SGPT) 49 U/L 0-65 Not Available [facility] ([facility]) [address] , [place], [address], 07/31/2024 12:58:52 07/31/20 24 07/31/2024 COMP METAB OLIC PANEL alk phosphatase 68 U/L 46-116 Not Available [facility] ([facility]) [address], [place], [address], 07/31/2024 12:58:52 07/31/20 24 07/31/2024 PROST ATE SPECI FIC AG (PSA) prostate specific Ag (PSA) 0.7 NG/mL 0-4.0 Not Available [facility] ([facility]) [address] , [place], [address], 07/31/2024 12:58:54 07/31/20 24 07/31/2024 bladd er scan (PROC ) Calculated Residual Urine: 31cc Not Available [facility]100 [address], [place], [address], 07/31/2024 10:54:27 08/20/19 25 08/20/2024 BASIC METAB OLIC PANEL sodium 134 mmol/ L 136-14 5 low Not Available [facility] ([facility]) [address] , [place], [address], 08/20/2024 05:58:09 08/20/19 25 08/20/2024 BASIC METAB OLIC PANEL potassium 4.5 mmol/ L 3.6-5. 0 Not Available [facility] ([facility]) [address] , [place], [address], 08/20/2024 05:58:09 08/20/19 25 08/20/2024 BASIC METAB OLIC PANEL chloride 100 mmol/ L 98-107 Not Available [facility] ([facility]) [address] [place], [address], 08/20/2024 05:58:09 08/20/19 25 08/20/2024 BASIC METAB OLIC PANEL carbon dioxide 25.3 mmol/ L 21.0-3 2.0 Not Available [facility] ([facility]) [address] , [place], [address], 08/20/2024 05:58:09 08/20/19 25 08/20/2024 BASIC METAB OLIC PANEL anion gap 13.2 Not Available [facility] ([facility]) [address], [place], [address], 08/20/2024 05:58:09 08/20/19 25 08/20/2024 BASIC METAB OLIC PANEL glucose 125 mg/dL 70-120 high Not Available [facility] ([facility]) [address], [place], [address], 08/20/2024 05:58:09 08/20/19 25 08/20/2024 BASIC METAB OLIC PANEL BUN 22 mg/dL 7-18 high Not Available [facility] ([facility]) [address], [place], [address], 08/20/2024 05:58:09 08/20/19 25 08/20/2024 BASIC METAB OLIC PANEL creatinine 1.6 mg/dL 0.6-1. 3 high Not Available [facility] ([facility]) [address], [place], [address], 08/20/2024 05:58:09 08/20/19 25 08/20/2024 BASIC METAB OLIC PANEL glomerular filtration rate 48 mlper min 60- low GFR LIMIT ATION : The eGFR equat ion CKD-E PI 2020 is not appli cable for pedia tric patie nts or great er than 90 years of age. The follo wing condi tions may alter the GFR resul t: extre mes in body size, malnu triti on or obesi ty, skele ralph muscl e disea se, parap legia or quadr ipleg ia, veget lisy diet or rapid ly [place] ing kiney funct ion. Not Available [facility] ([facility]) [address], [place], [address], 08/20/2024 05:58:09 08/20/19 25 08/20/2024 BASIC METAB OLIC PANEL calcium 8.9 mg/dL 8.5-10 .5 Not Available [facility] ([facility]) [address] , [place], [address], 08/20/2024 05:58:09 08/20/19 25 08/20/2024 CBC AUTO W DIFF WBC 14.5 K/uL 4.0-10 .5 high Not Available [facility] ([facility]) [address] , [place], [address], 08/20/2024 06:45:37 08/20/19 25 08/20/2024 CBC AUTO W DIFF RBC 4.3 M/mm3 4.7-6. 1 low Not Available [facility] ([facility]) [address] , [place], [address], 08/20/2024 06:45:37 08/20/19 25 08/20/2024 CBC AUTO W DIFF HGB 13.2 gm/dL 13.5-1 8.0 low Not Available [facility] ([facility]) [address] , [place], [address], 08/20/2024 06:45:37 08/20/19 25 08/20/2024 CBC AUTO W DIFF HCT 40.5 % 42.0-5 2.0 low Not Available [facility] ([facility]) [address] , [place], [address], 08/20/2024 06:45:37 08/20/19 25 08/20/2024 CBC AUTO W DIFF MCV 94.6 fL 78-100 Not Available [facility] ([facility]) [address] , [place], [address], 08/20/2024 06:45:37 08/20/19 25 08/20/2024 CBC AUTO W DIFF MCH 30.8 pg 27-31 Not Available [facility] ([facility]) [address], [place], [address], 08/20/2024 06:45:37 08/20/19 25 08/20/2024 CBC AUTO W DIFF MCHC 32.6 g/dL 32-36 Not Available [facility] ([facility]) [address], [place], [address], 08/20/2024 06:45:37 08/20/19 25 08/20/2024 CBC AUTO W DIFF RDW 13.8 % 11.5-1 4.0 Not Available [facility] ([facility]) [address] , [place], [address], 08/20/2024 06:45:37 08/20/19 25 08/20/2024 CBC AUTO W DIFF platelet count 228 K/uL 150-45 0 Not Available [facility] ([facility]) [address] , [place], [address], 08/20/2024 06:45:37 08/20/19 25 08/20/2024 CBC AUTO W DIFF MPV 9.6 fL 6-9.5 high Not Available [facility] ([facility]) [address] , [place], [address], 08/20/2024 06:45:37 08/20/19 25 08/20/2024 CBC AUTO W DIFF neutrophil% 80.3 % 43-65 high Not Available [facility] ([facility]) [address] , [place], [address], 08/20/2024 06:45:37 08/20/19 25 08/20/2024 CBC AUTO W DIFF lymphocyte% 7.2 % 20.5-4 5.5 low Not Available [facility] ([facility]) [address] [place], [address], 08/20/2024 06:45:37 08/20/19 25 08/20/2024 CBC AUTO W DIFF monocyte% 10.6 % 5.5-11 .7 Not Available [facility] ([facility]) [address] [place], [address], 08/20/2024 06:45:37 08/20/19 25 08/20/2024 CBC AUTO W DIFF eosinophil% 1.4 % 0.9-2. 9 Not Available [facility] ([facility]) [address] [place], [address], 08/20/2024 06:45:37 08/20/19 25 08/20/2024 CBC AUTO W DIFF basophil% 0.1 % 0.2-1. 0 low Not Available [facility] ([facility]) [address] , [place], [address], 08/20/2024 06:45:37 08/20/19 25 08/20/2024 CBC AUTO W DIFF immature granulocytes % 0.4 % 0.0-0. 8 Not Available [facility] ([facility]) [address] [place], [address], 08/20/2024 06:45:37 08/20/19 25 08/20/2024 CBC AUTO W DIFF nucleated red blood cells % 0.0 % Not Available [facility] ([facility]) [address] [place], [address], 08/20/2024 06:45:37 08/20/19 25 08/20/2024 CBC AUTO W DIFF neutrophil# 11.7 K/uL 2.2-4. 8 high Not Available [facility] ([facility]) [address] [place], [address], 08/20/2024 06:45:37 08/20/19 25 08/20/2024 CBC AUTO W DIFF lymphocyte# 1.1 cell/ mcL 1.3-2. 9 low Not Available [facility] ([facility]) [address] [place], [address], 08/20/2024 06:45:37 08/20/19 25 08/20/2024 CBC AUTO W DIFF monocyte# 1.5 cell/ mcL 0.3-0. 8 high Not Available [facility] ([facility]) [address] , [place], [address], 08/20/2024 06:45:37 08/20/19 25 08/20/2024 CBC AUTO W DIFF eosinophil# 0.2 cell/ mcL 0-0.2 Not Available [facility] ([facility]) [address] , [place], [address], 08/20/2024 06:45:37 08/20/19 25 08/20/2024 CBC AUTO W DIFF basophil# 0.0 cell/ mcL 0.0-1. 0 Not Available [facility] ([facility]) [address] , [place], [address], 08/20/2024 06:45:37 08/20/19 25 08/20/2024 CBC AUTO W DIFF immature gramulocytes # 0.06 K/uL Not Available [facility] ([facility]) [address] , [place], [address], 08/20/2024 06:45:37 08/20/19 25 08/20/2024 CBC AUTO W DIFF nucleated red blood cells # 0.00 K/uL Not Available [facility] ([facility]) [address] , [place], [address], 08/20/2024 06:45:37 08/20/1908/20/2024 CBC AUTO W DIFF manual differential YES Not Available [facility] ([facility]) [address] , [place], [address], 08/20/2024 06:45:37 08/20/19 25 08/20/2024 CBC AUTO W DIFF segmented neutrophil 83 % 42-76 high Not Available [facility] ([facility]) [address], [place], [address], 08/20/2024 06:45:37 08/20/19 25 08/20/2024 CBC AUTO W DIFF lymphocyte 6 % 15-41 low Not Available [facility] ([facility]) [address] , [place], [address], 08/20/2024 06:45:37 08/20/19 25 08/20/2024 CBC AUTO W DIFF monocyte 11 % 2-9 high Not Available [facility] ([facility]) [address] , [place], [address], 08/20/2024 06:45:37 08/20/19 25 08/20/2024 CBC AUTO W DIFF platelet estimate ADEQUA TE adequa te Not Available [facility] ([facility]) [address] , [place], [address], 08/20/2024 06:45:37 08/20/19 25 08/20/2024 CBC AUTO W DIFF platelet morphology NORMAL normal Not Available [facility] ([facility]) [address] , [place], [address], 08/20/2024 06:45:37 08/20/1908/20/2024 CBC AUTO W DIFF RBC morphology NORMAL normal Not Available [facility] ([facility]) [address] , [place], [address], 08/20/2024 06:45:37 08/21/19 25 08/21/2024 BASIC METAB OLIC PANEL sodium 134 mmol/ L 136-14 5 low Not Available [facility] ([facility]) [address], [place], [address], 08/21/2024 07:58:39 08/21/19 25 08/21/2024 BASIC METAB OLIC PANEL potassium 3.9 mmol/ L 3.6-5. 0 Not Available [facility] ([facility]) [address] , [place], [address], 08/21/2024 07:58:39 08/21/19 25 08/21/2024 BASIC METAB OLIC PANEL chloride 100 mmol/ L 98-107 Not Available [facility] ([facility]) [address] , [place], [address], 08/21/2024 07:58:39 08/21/19 25 08/21/2024 BASIC METAB OLIC PANEL carbon dioxide 27.1 mmol/ L 21.0-3 2.0 Not Available [facility] ([facility]) [address] [place], [address], 08/21/2024 07:58:39 08/21/19 25 08/21/2024 BASIC METAB OLIC PANEL anion gap 10.8 Not Available [facility] ([facility]) [address] [place], [address], 08/21/2024 07:58:39 08/21/19 25 08/21/2024 BASIC METAB OLIC PANEL glucose 115 mg/dL 70-120 Not Available [facility] ([facility]) [address] [place], [address], 08/21/2024 07:58:39 08/21/19 25 08/21/2024 BASIC METAB OLIC PANEL BUN 20 mg/dL 7-18 high Not Available [facility] ([facility]) [address] [place], [address], 08/21/2024 07:58:39 08/21/19 25 08/21/2024 BASIC METAB OLIC PANEL creatinine 1.5 mg/dL 0.6-1. 3 high Not Available [facility] [address] [place], [address], 08/21/2024 07:58:39 08/21/19 25 08/21/2024 BASIC METAB OLIC PANEL glomerular filtration rate 52 mlper min 60- low GFR LIMIT ATION : The eGFR equat ion CKD-E PI 2020 is not appli cable for pedia tric patie nts or great er than 90 years of age. The follo wing condi tions may alter the GFR resul t: extre mes in body size, malnu triti on or obesi ty, skele ralph muscl e disea se, parap legia or quadr ipleg ia, veget lisy diet or rapid ly [place] ing kiney funct ion. Not Available [facility] ([facility]) [address], [place], [address], 08/21/2024 07:58:39 08/21/19 25 08/21/2024 BASIC METAB OLIC PANEL calcium 8.9 mg/dL 8.5-10 .5 Not Available [facility] ([facility]) [address], [place], [address], 08/21/2024 07:58:39 08/27/19 25 08/27/2024 bladd er scan (PROC ) Calculated Residual Urine: 16 Not Available [facility] [address] [facility] [address], [place], [address], 08/27/2024 10:18:12 08/27/19 25 08/27/2024 urina lysis , dipst ick Leukocytes (reference range) trace Not Available [facility] [address] [facility] [address], [place], [address], 08/27/2024 10:17:15 08/27/19 25 08/27/2024 urina lysis , dipst ick Nitrite (reference range:) negati ve Not Available [facility] [address] [facility] [address], [place], [address], 08/27/2024 10:17:15 08/27/19 25 08/27/2024 urina lysis , dipst ick Protein (reference range) trace Not Available [place] [address], [place], [address], 08/27/2024 10:17:15 08/27/19 25 08/27/2024 urina lysis , dipst ick pH (reference range 5-8.5) 5.0 Not Available [place] [address], [place], [address], 08/27/2024 10:17:15 08/27/19 25 08/27/2024 urina lysis , dipst ick Blood (reference range:) negati ve Not Available [place] [address] [address] [facility] [address], [place], [address], 08/27/2024 10:17:15 08/27/19 25 08/27/2024 urina lysis , dipst ick Specific [place] (reference range) 1.010 Not Available [place] [address] [address] [facility] [address], [place], [address], 08/27/2024 10:17:15 08/27/19 25 08/27/2024 urina lysis , dipst ick Ketone (reference range) negati ve Not Available [place] [address] [address] [facility] [address], [place], [address], 08/27/2024 10:17:15 08/27/19 25 08/27/2024 urina lysis , dipst ick Bilirubin (reference range) negati ve Not Available [place] [address] [address] [facility] [address], [place], [address], 08/27/2024 10:17:15 08/27/19 25 08/27/2024 urina lysis , dipst ick Glucose (reference range) negati ve Not Available [facility], [place], [address], 08/27/2024 10:17:15 08/27/19 25 08/27/2024 urina lysis , dipst ick Color (reference range: yellow-brown ) Yellow Not Available [facility], [place], [address], 08/27/2024 10:17:15 08/10/20 24 12/25/2023 imagi ng/di agnos tic resul t No observ ation record ed. [email or web address] , [place], [address], 02/18/2025 08:30:22 Result Notes None recorded. Problems Name Problem SNOMED Code Status Onset Date Resolution Date Notes Provider Name and Address Organization Details Recorded Time Gout 16245637 Active 2023 Renetta Huerta null, [place] [facility] & [place] 4 15:49:00 Hypertensive disorder 19718388 Active 2023 Renetta Hu[place], [place] [facility] [place] 4 15:49:05 Sleep apnea 52820750 Active 2023 Renetta Kingez null, [place] [facility] [place] 4 15:49:13 Insomnia 345470862 Active 2023 Renetta Hu[place] [facility] [place] 4 15:49:21 Allergic rhinitis 29663440 Active 2023 Ren[place] Hu[place] [facility] [place] 4 15:49:30 Hyperlipidemi a 98378840 Active 2023 Renetta Hu[place] null[place] [facility] [place] 4 10:15:30 Renal mass 480060984 Active 2023 FLORENCE SIMMONS MD [address], [place], [address] , [facility] - [facility] & [place] 4 11:24:09 Nocturia 561070889 Active [address], [place], [address] , [facility] - [facility] & [place] 4 11:25:19 Leukocytes in urine 013852459 Active [address], [place], [address] , [facility] - [facility] & [place] 5 10:47:15 Problem Notes None recorded. Procedures Surgical History Date Name Laterality Status Provider Name and Address Organization Details Recorded Time procedure on tooth completed Renetta Qian Kingez [place] - [facility] & [place] 07/29/2024 15:50:04 procedure on nose completed Renetta Laughlin Deanna TALYA - [facility] & [place] 07/29/2024 15:50:18 Knee arthroscopy/la severo completed [facility] [place] - [facility] & [place] 07/29/2024 15:50:27 Imaging Results None recorded. Procedure Notes None recorded. Medical Equipment None Reported. Allergies No known drug allergies Medications Name Sig Start Date Stop Date Status Note LastModified by Organization Details LastModified Time senna s 8.6-50mg tablets TAKE 1 TABLET BY MOUTH DAILY NEEDED FOR CONSTIPAT ION 07/31 completed Not Available Not Available Not Available atorvastati n 40 mg tablet TAKE 1 TABLET BY MOUTH DAILY AT BEDTIME active Not Available Not Available No t Available promethazin e-DM 6.25 mg-15 mg/5 mL oral syrup TAKE 5 MILLILITE RS BY MOUTH EVERY 6 HOURS NEEDED active Not Available Not Available No t Available nabumetone 750 mg tablet TAKE 2 TABLETS BY MOUTH EVERY DAY active Not Available Not Available No t Available azithromyci n 250 mg tablet TAKE 2 TABLETS BY MOUTH TODAY, THEN TAKE 1 TABLET DAILY FOR 4 DAYS DIRECTED 02/22 completed Not Available Not Available Not Available hydrocodone 5 mg-acetamin ophen 325 mg tablet TAKE 1 TABLET BY MOUTH EVERY 4 TO 6 HOURS NEEDED FOR PAIN 07/31 completed Not Available Not Available Not Available senna 8.6 mg tablet TAKE 1 TABLET BY MOUTH EVERY NIGHT AT BEDTIME active Not Available Not Available No t Available ondansetron HCl 4 mg tablet TAKE 1 TABLET BY MOUTH EVERY 6 HOURS NEEDED FOR NAUSEA 07/31 completed Not Available Not Available Not Available oxycodone-a cetaminophe n 5 mg-325 mg tablet TAKE 1 TABLET BY MOUTH EVERY 6 HOURS NEEDED FOR PAIN 07/31 completed Not Available Not Available Not Available aspirin 325 mg tablet,sigrid yed release TAKE 1 TABLET BY MOUTH ONCE DAILY active Not Available Not Available No t Available amlodipine 10 mg tablet TAKE 1 TABLET BY MOUTH EVERY DAY active Not Available Not Available No t Available montelukast 10 mg tablet TAKE 1 TABLET BY MOUTH EVERY DAY FOR 90 DAYS active Not Available Not Available No t Available zolpidem 10 mg tablet TAKE 1 TABLET BY MOUTH EVERY DAY AT BEDTIME FOR 90 DAYS active Not Available Not Available No t Available albuterol sulfate HFA 90 mcg/actuati on aerosol inhaler INHALE 2 PUFFS BY MOUTH EVERY 6 HOURS NEEDED active Not Available Not Available No t Available colchicine 0.6 mg tablet Take 1 tablet every day by oral route. 07/31 completed Not Available Not Available Not Available loratadine 10 mg tablet TAKE 1 TABLET BY MOUTH DAILY active Not Available Not Available No t Available aspirin active Not Available Not Avail able Not Available Purelax 17 gram oral powder packet active Not Available Not Available Not Available loratadine 10 mg capsule Take by oral route. 07/31 completed Not Available Not Available Not Available Vitamin D3 100 mcg (4,000 unit) capsule Take by oral route. 07/31 completed Not Available Not Available Not Available Contrave 8 mg-90 mg tablet,exte nded release TAKE 1 TABLET BY MOUTH ONCE A DAY FOR 90 DAYS DIRECTED active Not Available Not Available No t Available albuterol 90 mcg-budeson eugenio 80 mcg/actuati on HFA aerosol inhaler Inhale by inhalatio n route. 07/31 completed Not Available Not Available Not Available Vitals Date Recorded Body height Body mass index (BMI) Body weight Oxygen saturation Oxygen saturation in Arterial blood by Pulse oximetry Heart rate Systolic And Diastolic Provider Name and Address Organization Details Last Updated DateTime 5 175.26 cm 30 kg/m2 13962.2 5 g 96 % 96 % 85 /min 126/92 mm[Hg] Renetta BABIN [facility] & [place] 5 10:17:04 Date Recorded Body weight Body temperature Oxygen saturation Oxygen saturation in Arterial blood by Pulse oximetry Heart rate Systolic And Diastolic Provider Name and Address Organization Details Last Updated DateTime 4 20564.6 2 g 97.8 [degF] 98 % 98 % 98 /min 131/90 mm[Hg] Juliet Diaz [facility] & [place] 4 10:52:32 Social History Question Answer Notes LastModified by [employer] Details LastModified Time Tobacco Smoking Status Current Every Day Smoker Renetta Huerta [facility], [facility] & [place] 07/29/2024 15:51:12 What Is Your Level Of Caffeine Consumption? Occasional Information not available 07/29/2024 Sex: Unknown Functional Status Question Answer Note LastModified by [employer] Details LastModified Time Do you use any illicit or recreational drugs? No Information not available 07/29/2024 What is your level of alcohol consumption? None Information not available 07/29/2024 Mental Status None recorded. Family History Relationship Description Onset Age of this Age Resolved Age Notes LastModified by Organization Details LastModified Time Mother Hypertensive disorder [email or web address] Not available 07/29/2024 15:50:40 Brother Malignant neoplasm of lung [email or web address] z1 Not available 07/31/2024 10:15:58 Medical History No medical history recorded. Past Encounters Encounter ID Performer Location Encounter Start Date Encounter Closed Date Diagnosis/Indication Diagnosis SNOMED-CT Code Diagnosis ICD10 Code Diagnosis Note [id number] FLORENCE SIMMONS MD [facility] Urology-[address] [place] [address] 07/31/2024 09:57:47 07/31/2024 11:39:28 Renal mass [id number] N28.89 I have personally reviewed images on Mr. Henry today. We discussed the imaging and depth in that he has multiple, solid enhancing lesions in the left kidney. Statistica lly, this represents renal cell carcinoma in approximat martita 85% of cases. However, benign lesion such as oncocytoma are also a possibilit y. We reviewed the potential risks and benefits of renal biopsy. We the relatively significan t false negative rate. Also, with multiple lesions, this could increase the uncertaint y. He verbalized his understand ing. We discussed treatment options including surgery. While there are possible cases where multiplex robotic partial nephrectom y can be performed in select patients, I do not feel that he would be an appropriat e candidate given the size, location, and endophytic nature of both lesions. Therefore, I would recommend laparoscop ic hand assisted left radical nephrectom y. I reviewed the surgery in depth as well as risks of bleeding, infection, injury to adjacent structures , and the risk of anesthesia . He verbalized his understand ing and wishes to proceed. We also reviewed the typical postoperat princess period. He understand s that he would be restricted from heavy lifting or straining for approximat martita 4-6 weeks after surgery. We will check CBC and CMP today. Nocturia [id number] R35.1 We will readdress after the above is taken care of. We will check routine screening PSA today. [id number] FLORENCE SIMMONS MD [facility] Urology-1 [address] [facility] [address] [place] [address] 08/27/2024 10:00:53 08/27/2024 10:49:33 Renal mass [id number] N28.89 we will follow up on pathology and contact the patient once this is finalized. I have instructed him to refrain from any heavy lifting or straining for an additional 3 weeks from today's date. He will follow up in 6 months with a BMP prior. Leukocytes in urine [id number] R82.79 Urine will be sent for culture and sensitivit y. Health Concerns Section Related Observation LastModified by Organization Detai ls LastModified Time None Recorded Concern Status LastModified by Organization Details LastModified Time None Recorded Advance Directives Directive None Recorded Payers Insurance Date Sequence Insurance Name Policy Number Policy Archer Covered Member ID Archer Member ID Guarantor Name 02/22/2025 1 [place] [id number] 1 Devin Figueroa [id number] Devin Figueroa Notes Date Note Type Note Provider Name and Address Organization Details Recorded Time 08/19/2024 text/plain Operative/Proced ure Note [facility] Name Devin Figueroa Date of Service 0921 [id number] (M) Attending IRIS HENRIQUEZ Dee YAP Admitted [id number] Discharged Primary RUDY CASTLE - Pre-Procedure Diagnosis Left renal mass x2 Post- Procedure Diagnosis same Procedure / Surgery None left hand-assisted laparoscopic radical nephrectomy Anesthesia Type General anesthesia Estimated Blood Loss less than 25 mL Complications None Procedure Description / Findings after informed consent was obtained from the patient, he was taken to the operating room where he was placed in a comfortable supine position on the procedure table. Time-out was performed confirming correct patient, correct procedure, and correct operative site. General anesthesia was induced and preoperative IV antibiotics were administered. Alaniz catheter was then placed using sterile technique. The patient was then placed in a modified lateral decubitus position with the left flank up on the beanbag. Delivery roll was placed under the right axilla. The patient was then properly padded and supported the table and was secured with a series of belts and silk tape. The abdomen and left flank were then prepped and draped in the usual sterile fashion. Tap block was performed by anesthesia. We then made a vertical incision in the left upper quadrant lateral to the border of the rectus muscle measuring approximately 7 cm. We then used Bovie electrocautery to divide down through the subcutaneous tissue and through the fascia. Once we reached the transversalis fascia and peritoneum, we used Metzenbaum scissors to sharply entered the peritoneum. The GelPort disc was then placed and the abdomen was insufflated to a preset pressure of 15 cm of water. We then inserted the 10 mm laparoscope and inspected the abdominal contents. There was no evidence of vascular or bowel injury noted. There were numerous adhesions over the left body wall from the omentum. We then placed our additional 2 laparoscopic 12 mm ports in the left lower quadrant under direct vision. We began the procedure by using the harmonic scalpel to take down the abdominal adhesions. Once this was done, we then identified the left colon and incised the white line of Toldt to reflect the colon medially. We then used gentle blunt dissection near the lower pole to identify the left gonadal vein and the left ureter. The left ureter was then used to 8 and lateral retraction. This was traced up to the renal hilum where we identified the left renal vein and left renal artery. Once these were circumferentially dissected bluntly with the laparoscopic Kittner, we then inserted the 60 mm Endo-SAVITA stapler and divided the vessels with excellent hemostasis. We then continued to free up the posterior and lateral attachments of the kidney with the harmonic scalpel. We then took down the splenorenal ligaments superiorly and developed the plane between the superior pole of the kidney and the left adrenal gland. Once the kidney was completely freed from the renal fossa, we then doubly clipped the left ureter with titanium clips and divided this with the harmonic scalpel. The left kidney and proximal ureter were then removed through the GelPort incision and passed off the field. We then reinserted the camera and inspected the renal fossa with no evidence of bleeding from the hilum. We did notice a small rent in the splenic capsule and therefore placed 10 cc of FloSeal to achieve hemostasis. Further inspection did not reveal any 1 of 2 Operative/Procedure Note [facility] Name Devin Figueroa Date of Service 09 [id number] (M) Attending IRIS YAP Admitted [id number] Discharged Primary MECCA TIN - evidence of vascular or bowel injury. We then closed the 2 laparoscopic ports in the left lower quadrant with an 0 silk suture and the Kin-Amado device. The GelPort was then removed. We then reapproximated the rectus fascia of the GelPort site with 2 looped 0 PDS sutures. All skin incisions were then copiously irrigated and skin margins were reapproximated using 4-0 Monocryl with a in a subcuticular fashion. Dermabond was then applied to each incision site. The procedure was then terminated, the patient was awoken and transferred to the PACU with Alaniz catheter in place. Specimens Left kidney Tubes/Drains Alaniz catheterization Implants None Disposition of Patient stable to PACU Electronically signed by IRIS YAP on 0921 2 of 2 CC'ed Logic: Ordering Provider: IRIS HENRIQUEZ Referring Provider: IRIS HENRIQUEZ Consulting Provider: IRIS Crespo, BLAS, [address], [place], [address], [facility] & [place] 08/19/2024 14:27:33 08/20/2024 text/plain Progress Note : Progress Note [facility] Name Devin Figueroa Date of Service 0802 [id number] (M) Attending MARIA D Coppola Admitted [id number] Discharged Primary RUDY CASTLE - History of Present Illness Postop day 1 status post left laparoscopic radical nephrectomy. No acute events overnight. No flatus yet. Tolerating clears. Vital Signs 0801 T 98.5 HR 71 RR 18 BP 147 / 81 O2Sat 93 0350 T 97.9 (L) HR 64 RR 18 BP 111 / 76 O2Sat 97 Intake and Output previous current encounter day day cumulative Intake 1130 - 1130 Output 1400 - 1400 Balance (-270) - (-270) Physical Exam Abdomen Abdominal tenderness, Distention Lab Results 0446 Chemistry NA 134 (L) K 4.5 CHLORIDE 100 CO2 25.3 AGAP 13.2 GLUC 125 (H) BUN 22 (H) CREAT 1.6 (H) GFR 48 (L) CALCIUM 8.9 6 Hematology WBC 14.5 (H) RBCS 4.3 (L) HGB 13.2 (L) HCT 40.5 (L) MCV 94.6 MCH 30.8 MCHC 32.6 RDW 13.8 PLT S 228 MPV 9.6 (H) NEUT% 80.3 (H) LYMPH% 7.2 (L) MONO% 10.6 EOS% 1.4 BASO% 0.1 (L) IG% 0.4 NRBC% 0.0 NEUT# 11.7 (H) LYMPH# 1.1 (L) MONO# 1.5 (H) EOS# 0.2 BASO# 0.0 IG# 0.06 NRBC# 0.00 MANDIFF Yes SEG 83 (H) LYMP 6 (L) MONO 11 (H) PLTEST Adequate PLTMORPH Normal RBCMORPH Normal Assessment/Plan Continue aggressive bowel regimen. Ambulate in the hallways Active Medications montelukast sodium (SINGULAIR) 10 MG PO DAILY LOVENOX 40 MG/0.4 ML 40 MG SUBCUT DAILY cetirizine (ZyrTEC) 10 MG PO DAILY auto sub for loratadine 10mg atorvastatin (LIPITOR) 40 MG PO DAILY amLODIPine (NORVASC) 10 MG PO DAILY pantoprazole (PROTONIX) 40 MG PO ACB SENNOSIDES-DOCUSATE SODIUM 8.6-50 MG 1 TAB PO BID cefOXitin (MEFOXIN) 1 GM IV Q8H 100 ML/HR 1 of 2 Progress Note [facility] Name Devin Figueroa Date of Service 0802 [id number] (M) Attending MARIA D Coppola Admitted [id number] Discharged Primary MULBERRY TIN - sodium chloride 0.9% 50 ML X3 DOSES PERCOCET 5-325 MG 2 TAB PO Q6HPRN for SEVERE PAIN 7-10 PAIN SCALE ondansetron (ZOFRAN) INJ 4 MG/2 ML 4 MG IV PUSH Q6HPRN for NAUSEA VOMITING morphine sulfate (PF) 2 MG/ML 2 MG IV PUSH Q3HPRN for MODERATE PAIN 4-6 PAIN SCALE LACTATED RINGERS 1000 ML IV Continuous 125 ML/HR Electronically signed by IRIS YAP on 0807 2 of 2 CC'ed Logic: Ordering Provider: IRIS HENRIQUEZ Referring Provider: IRIS HENRIQUEZ Consulting Provider: IRIS Crespo NP, [address] [facility], [place], [address], [facility] [place] & [place] 08/20/2024 09:08:48 08/21/2024 text/plain Progress Note : Progress Note [facility] Name Devin Figueroa Date of Service 1025 [id number] (M) Attending MARIA D Coppola Admitted [id number] Discharged Primary MULBERRY TIN - History of Present Illness Postop day 2 status post left radical nephrectomy. Pain controlled. Passing flatus and tolerating clear liquid diet. Ambulating Vital Signs 0913 T 97.9 (L) HR 95 RR 20 BP 144 / 89 O2Sat 90 0317 T 99.1 HR 80 RR 17 BP 133 / 79 O2Sat 90 Intake and Output previous current encounter day day cumulative Intake 250 - 1380 Output 1550 - 2950 Balance (-1300) - (-1570) Physical Exam Abdomen Distention Lab Results 0708 Chemistry NA 134 (L) K 3.9 CHLORIDE 100 CO2 27.1 AGAP 10.8 GLUC 115 BUN 20 (H) CREAT 1.5 (H) GFR 52 (L) CALCIUM 8.9 Assessment/Plan continued aggressive bowel regimen. We can slowly advanced to full liquids today. Possible discharge once bowel function improves and tolerating regular diet. Active Medications enema, mineral oil (FLEETS) 133 ML RECTAL NOW MILK OF MAGNESIA 7.75 % 400 MG/5 ML 60 ML PO NOW MYLANTA DS ORAL 30 ML PO Q6HPRN for HEARTBURN INDIGESTION NORCO 10-325 MG 1 TAB PO Q6HPRN for MODERATE PAIN 4-6 PAIN SCALE, SEVERE PAIN 7-10 PAIN SCALE montelukast sodium (SINGULAIR) 10 MG PO DAILY LOVENOX 40 MG/0.4 ML 40 MG SUBCUT DAILY cetirizine (ZyrTEC) 10 MG PO DAILY auto sub for loratadine 10mg atorvastatin (LIPITOR) 40 MG PO DAILY amLODIPine (NORVASC) 10 MG PO DAILY pantoprazole (PROTONIX) 40 MG PO ACB SENNOSIDES-DOCUSATE SODIUM 8.6-50 MG 1 TAB PO BID ondansetron (ZOFRAN) INJ 4 MG/2 ML 4 MG IV PUSH Q6HPRN for NAUSEA VOMITING 1 of 2 Progress Note [facility] Name Devin Figueroa Date of Service 1025 [id number] (M) Attending MARIA D Coppola Admitted [id number] Discharged Primary RUDY CASTLE - morphine sulfate (PF) 2 MG/ML 2 MG IV PUSH Q3HPRN for MODERATE PAIN 4-6 PAIN SCALE LACTATED RINGERS 1000 ML IV Continuous 125 ML/HR Electronically signed by IRIS YAP on 1027 2 of 2 CC'ed Logic: Ordering Provider: IRIS HENRIQUEZ Referring Provider: IRIS HENRIQUEZ Consulting Provider: IRIS Crespo, BLAS, [address], [place], [address], [facility] & [place] 08/23/2024 13:02:51 08/22/2024 text/plain Progress Note : Progress Note [facility] Name Devin Figueroa Date of Service 0954 [id number] (M) Attending MARIA D Coppola Admitted [id number] Discharged Primary RUDY CASTLE - Chief Complaint Postop day 3 status post left radical nephrectomy History of Present Illness no acute events overnight. Patient reports occasional flatus but denies any BM yet. Is still tolerating clears, has not advance diet due to decreased appetite. Reports ambulating Vital Signs 0815 T 98.6 HR 66 RR 18 BP 139 / 73 O2Sat 94 0340 T 98.5 HR 63 RR 17 BP 128 / 83 O2Sat 95 Intake and Output previous current encounter day day cumulative Intake 5000 - 6380 Output - - 2950 Balance 5000 - 3430 Physical Exam General Normal appearance, Awake, Alert Abdomen Distention Lab Results 0730 Chemistry NA 134 (L) K 4.2 CHLORIDE 101 CO2 31.2 AGAP 6.0 GLUC 100 BUN 19 (H) CREAT 1.6 (H) GFR 48 (L) CALCIUM 8.9 0730 Hematology WBC 8.2 RBCS 3.8 (L) HGB 12.0 (L) HCT 36.4 (L) MCV 94.8 MCH 31.3 (H) MCHC 33.0 RDW 13.5 PLT S 186 MPV 9.2 MANDIFF No Assessment/Plan postop day 3 status post left radical nephrectomy, postop ileus - OOBTC -Ambulate in hallways TID minimum -KUB to assess bowel gas -Dulcolax supp bid -Await bowel function to ADAT Active Medications MYLANTA DS ORAL 30 ML PO Q6HPRN for HEARTBURN INDIGESTION 1 of 2 Progress Note [facility] Name Devin Figueroa Date of Service 0954 [id number] (M) Attending MARIA D Coppola Admitted [id number] Discharged Primary RUDY CASTLE - NORCO 10-325 MG 1 TAB PO Q6HPRN for MODERATE PAIN 4-6 PAIN SCALE, SEVERE PAIN 7-10 PAIN SCALE montelukast sodium (SINGULAIR) 10 MG PO DAILY LOVENOX 40 MG/0.4 ML 40 MG SUBCUT DAILY cetirizine (ZyrTEC) 10 MG PO DAILY auto sub for loratadine 10mg atorvastatin (LIPITOR) 40 MG PO DAILY amLODIPine (NORVASC) 10 MG PO DAILY pantoprazole (PROTONIX) 40 MG PO ACB SENNOSIDES-DOCUSATE SODIUM 8.6-50 MG 1 TAB PO BID ondansetron (ZOFRAN) INJ 4 MG/2 ML 4 MG IV PUSH Q6HPRN for NAUSEA VOMITING morphine sulfate (PF) 2 MG/ML 2 MG IV PUSH Q3HPRN for MODERATE PAIN 4-6 PAIN SCALE LACTATED RINGERS 1000 ML IV Continuous 125 ML/HR Electronically signed by IRIS YAP on 0956 2 of 2 CC'ed Logic: Ordering Provider: IRIS HENRIQUEZ Referring Provider: IRIS HENRIQUEZ Consulting Provider: IRIS Crespo NP, [address] , [place], [address], [facility] - [facility] - [place] & [place] 08/24/2024 13:04:34 08/23/2024 text/plain Progress Note : Progress Note [facility] Name Devin Figueroa Date of Service 0850 [id number] (M) Attending MARIA D Coppola Admitted [id number] Discharged Primary RUDY CASTLE - Chief Complaint postop day 4. Status post laparoscopic left nephrectomy History of Present Illness no acute events overnight. Pain controlled. Very small liquid bowel movement per patient. Tolerating clear liquid diets. Vital Signs 0818 T 98.2 HR 61 RR 20 BP 141 / 74 O2Sat 96 0356 T 98.7 HR 60 RR 17 BP 130 / 76 O2Sat 93 Intake and Output previous current encounter day day cumulative Intake 1880 - 8260 Output 1900 - 4850 Balance (-20) - 3410 Physical Exam General Normal appearance, Awake, Alert Abdomen Distention Lab Results 1731 Rad Diagnostic X-Ray [id number] Assessment/Plan Postop day 4 status post left radical nephrectomy, postop ileus. Continue aggressive bowel regimen. We will advance diet once distention and bowel function improves. Active Medications pyridostigmine bromide 60 MG PO BID For constipation BISACODYL 10 MG RECTAL BID sodium chloride 0.9% 1000 ML IVC Continuous 125 ML/HR linaclotide (LINZESS) 145 MCG PO DAILY MYLANTA DS ORAL 30 ML PO Q6HPRN for HEARTBURN INDIGESTION NORCO 10-325 MG 1 TAB PO Q6HPRN for MODERATE PAIN 4-6 PAIN SCALE, SEVERE PAIN 7-10 PAIN SCALE montelukast sodium (SINGULAIR) 10 MG PO DAILY 1 of 2 Progress Note [facility] Name Devin Figueroa Date of Service 0850 [id number] (M) Attending MARIA D Coppola Admitted [id number] Discharged Primary RUDY CASTLE - LOVENOX 40 MG/0.4 ML 40 MG SUBCUT DAILY cetirizine (ZyrTEC) 10 MG PO DAILY auto sub for loratadine 10mg atorvastatin (LIPITOR) 40 MG PO DAILY amLODIPine (NORVASC) 10 MG PO DAILY pantoprazole (PROTONIX) 40 MG PO ACB SENNOSIDES-DOCUSATE SODIUM 8.6-50 MG 1 TAB PO BID ondansetron (ZOFRAN) INJ 4 MG/2 ML 4 MG IV PUSH Q6HPRN for NAUSEA VOMITING morphine sulfate (PF) 2 MG/ML 2 MG IV PUSH Q3HPRN for MODERATE PAIN 4-6 PAIN SCALE Electronically signed by IRIS Price PHFady on 0851 2 of 2 CC'ed Logic: Ordering Provider: IRIS HENRIQUEZ Referring Provider: IRIS HENRIQUEZ Consulting Provider: IRIS Crespo NP, [address], [place], [address], [place] - [facility] & [place] 08/24/2024 13:04:25 07/31/2024 text/html 07/31/24 63-year-old male referred by Dr. Tin Tanner for recent findings ofmultiple enhancing masses in the LEFT kidney worrisome for malignancy. CT completed at [facility] on showed a 3 cm enhancing lesion in the left upper pole along with a 1.7 cm enhancing lesion in the left lower pole. Normal renal veins noted. Masses were found incidentally on low-dose CT of the chest as the patient has a smoking history of 1 pack per day for 40 years. Patient denies any flank pain or gross hematuria. He does report ongoing nocturia which has been present for several years. Family history is negative for malignancy, however, his brother did pass away from stage IV lung cancer. The patient notes that his father had end-stage renal disease and require dialysis, but he was unsure of the underlying etiology. 07/15/24 CT ([facility] [place]): 3.0 cm left upper pole enhancing mass, 1.7 cm left lower pole enhancing mass. Normal appearance of renal vein. No LAD FLORENCE SIMMONS MD [address], [place], [address], [place] - [facility] & [place] 08/12/2024 11:18:19 08/27/2024 text/html 08/27/24 64-year-old male returns for postop visit. He underwent L HALN on 08/19/2024. Patient states that his bowels have returned to normal and he has no current complaints. As of today's visit, pathology is still pending. [id number] male referred by Dr. Tin Tanner for recent findings of multiple enhancing masses in the LEFT kidney worrisome for malignancy. CT completed at [facility] on for showed a 3 cm enhancing lesion in the left upper pole along with a 1.7 cm enhancing lesion in the left lower pole. Normal renal veins noted.Masses were found incidentally on low-dose CT of the chest as the patient has a smoking history of 1 pack per day for 40 years.Patient denies any flank pain or gross hematuria. He does report ongoing nocturia which has been present for several years. Family history is negative for malignancy, however, his brother did pass away from stage IV lung cancer. The patient notes that his father had end-stage renal disease and require dialysis, but he was unsure of the underlying etiology. 08/21/24 Cr 1.5, GFR L HALN110/01/23 PSA 0.712 Cr 1.0, GFR CT ([facility] [place]): 3.0 cm left upper pole enhancing mass, 1.7 cm left lower pole enhancing mass. Normal appearance of renal vein. No LAD FLORENCE SIMMONS MD [address], [place], [address], [place] - [facility] - [place] & [place] 08/27/2024 10:47:56
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
--- NOTE | 2025-02-24 08:08 | CT_ITS ---
FINAL REPORT TECHNIQUE: Axial CT images were performed from the lung bases through the iliac crests. Oral contrast was administered. Coronal and sagittal reformats were submitted.This study was performed with techniques to keep radiation doses as low as reasonably achievable (ALARA). Individualized dose reduction techniques using automated exposure control or adjustment of mA and/or kV according to the patient''''s size were employed. CLINICAL HISTORY: Left upper quad pain for at least 2 weeks out COMPARISON: 07/15/2024 FINDINGS: There has been interval left nephrectomy. Right kidney demonstrates no stone disease. Remaining solid abdominal organs are unremarkable. There has been interval development of a left paramidline abdominal wall hernia containing transverse colon. Abdominal wall defect measures up to 55 mm. There is no ascites or adenopathy. No suspicious bony lesion is seen. IMPRESSION: Left paramidline abdominal wall hernia containing transverse colon. No evidence of strangulation or incarceration. Interval left nephrectomy without evidence of recurrent mass or adenopathy. Reviewed, Interpreted and Dictated by Sj Ordonez MD Transcribed by Erika Osullivan Authenticated and . [facility]
== END 2025-02-24 23:59 | disposition home or self-care (01) ==
LOC: RAD 07:35
PROVIDERS: PCP Family Medicine; Visit Provider Surgery
DX: K43.9 Ventral hernia without obstruction or gangrene (principal); Z90.5 Acquired absence of kidney
CPT/HCPCS: 74150

== ENCOUNTER 2025-03-19 09:01 | Outpatient (CLI) | payer BC, SELFPAY ==
--- OUTSIDE RECORDS SUMMARY | 2024-09-09 07:30 | XMS_ITS ---
Author Organization [facility] Address [address] [facility] [address] [place] [id number] Care Team Providers Care Antique Furniture Reproducer Name Role Phone Silver Tanner Primary Care [...] S/p nephrectomy (Z90.5) Active confirmed Vital Signs Blood pressure systolic 122 mm Hg 09/09/19 25 Blood pressure diastolic 82 mm Hg 025 Heart Rate 94 /min 09/09/2024 Height 69 in 09/09/2024 Weight 206.2 lbs 09/09/2024 BMI 30.45 kg/m2 09/09/2024 Encounters Encounter Location Date Provider Diagnosis [facility] [address] [phone] 09/09/2024 Silver Tanner Acute URI J06.9 and [...] [address], [address], [place], [place], [id number], Progress Notes * Devin FIGUEROADOB:1960 (64 yo M)Acc No.[id number]:09/09/2024 Progress Notes Patient: Devin BROWNE Provider: Ronnie Tanner M.D. :1960 A ge:64 Y S ex:Male Date:09/09/2024 Address:[address] [place] [address] [place], [place], [id number] Subjective: * Chief Complaints: * 1 . [...] yes. Marital Status: . Occupation: [employer] in [place], [place]. Past smoking status: yes, PPD:1 , [...] * Procedure Codes: 9 [address]60 [place], [address] CAPILLARY BLOOD DRAW, 10136 CBC WITH AUTO DIFF * Follow Up: v ia phone to report progress * Images: Billing Information: * Visit Code: 58467 Office Visit, Est Pt., Level 3. * Procedure Codes: [address] [place]. [address] CAPILLARY BLOOD DRAW. 45562 CBC WITH AUTO DIFF. * Electronic signature of Maribell Tanner MD on 03/19/2025 at 09:04 AM EDT Sign off status: Pending * Provider: Ronnie Tanner M.D. Date: 0 09/09/2024 Generated for Madalyn hernandez/Salma/eTransmitting on: 0 03/19/2025 09:04 AM EDT History and Physical Notes * HPI [...]
--- OUTSIDE RECORDS SUMMARY | 2024-11-25 12:15 | XMS_ITS ---
Author Organization [facility] Address [address] [facility] [address] [place], [place] [phone] Care Team Providers Care Weld Technician Name Role Phone Silver Tanner Primary Care Provider [phone] Allergies No Known Allergies Results Component Value Reference Range Notes P-Comprehensive Metabolic Pa flaco (CMP) Reviewed date:12/01/2024 04:46:42 PM Interpretation:Cr 1.57, gfr 59 Performing Lab: Notes/Report: Test performed by [facility] [address] [place] [address] , [address], [place] [address] Renaldo Schwab MD, Development Eng CLIA: [id number] Sodium 140 135-145 mmol/L Potassium 4.4 3.5-5.3 [...] Interpretation:6.0 Performing Lab: Notes/Report: Test performed by [facility] [address] [place] [address] [address], [place] [address] Renaldo Schwab MD, Development Eng CLIA: [id number] Hemoglobin A1C 6.0 <5.7 % The following HbA1c ranges recommended by the [place] Diabetes Association (ADA) may be used as an aid in the diagnosis of diabetes mellitus. HbA1c Suggested Diagnosis >=6.5% Diabetic 5.7% - 6.4% Pre-Diabetic <5.7% Non-Diabetic P-Lipid Panel Reviewed date:12/01/2024 04:46:42 PM Interpretation:trigs 178 Performing Lab: Notes/Report: Test performed by [facility] [address] [place], [place] [address] [place] Melissa [address]eria [address], [place] [address] Renaldo Schwab MD, Development Eng CLIA: [id number] Cholesterol 149 <200 mg/dL Triglycerides 178 <150 [...] Interpretation:Normal Performing Lab: Notes/Report: Test performed by [facility] , [address], [place] [address] Renaldo Schwab MD, Development Eng CLIA: [id number] PSA 0.56 <4.00 ng/mL Please note this is an ultrasensitive PSA assay with a lower limit of detection of 0.014 ng/mL. This test is performed by the [employer] ECLIA methodology. Values obtained with different assay methods or kits cannot be directly compared. P-TSH reflex to FT4 Reviewed date:12/01/2024 04:46:43 PM Interpretation:Normal Performing Lab: Notes/Report: Test performed by [facility] , [address], [place] [address] Renaldo Schwab MD, Development Eng CLIA: [id number] TSH reflex to FT4 1.79 0.43-5.25 mU/L P-Microalbumin/Creatinine, R andom Urine Sample Reviewed date:12/01/2024 04:46:43 PM Interpretation:a/c 75 Performing Lab: Notes/Report: Test performed by [facility] , [address], [place] [address] Renaldo Schwab MD, Development Eng CLIA: [id number] Albumin/Creatinine Ratio, Urine 75 0-30 ug/mg Microalbumin, Urine, Random 9.9 Creatinine, Urine 132.0 P-Uric Acid Reviewed date:12/01/2024 04:46:43 PM Interpretation:Normal Performing Lab: Notes/Report: Test performed by [facility] , [address], [place] [address] Renaldo Schwab MD, Development Eng CLIA: [id number] Uric Acid 6.6 3.4-8.0 mg/dL Estimated Average Glucose Reviewed date:12/01/2024 04:46:43 PM Interpretation:125 Performing Lab: Notes/Report: Test performed by [facility], [employer] [address] [place] [address] , [address], [place] [address] Renaldo Schwab MD, Development Eng CLIA: [id number] Estimated Average Glucose (eAG) 125 Estimated Average [...] Status Risk Notes Problem Vitamin D deficiency (82053344) Vitamin D deficiency, unspecified (E55.9) Active confirmed Problem BMI 30.0-30.9,adult (Z68.30) Active confirmed Vital Signs Blood pressure systolic 130 mm Hg 11/26/19 25 Blood pressure diastolic 84 mm Hg 025 Heart Rate 82 /min 11/25/2024 Height 69 in 11/25/2024 Weight 204.4 lbs 11/25/2024 BMI 30.18 kg/m2 11/25/2024 Encounters Encounter Location Date Provider Diagnosis [facility] [address] [facility] 36 [facility] [address] [place] [id number] 11/25/2024 Silver Tanner Essential hypertensi on I10 [...] 05/26/2025 04:15:00 PM, [address] [facility], [address], [place], [id number], Progress Notes * Devin GAGEDOB:1960 (64 yo M)Acc No.[id number]:11/25/2024 Progress Notes Patient: Devin BROWNE Provider: Ronnie Tanner M.D. :1960 A ge:64 Y S ex:Male Date:11/25/2024 Address:[address] [place] [address], [id number] Subjective: * Chief Complaints: * 1 . [...] yes. Marital Status: . 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 Past smoking status: yes, PPD:1 , [...] /p nephrectomy - Z90.5 8 . B [place] 30.0-30.9,adult - Z68.30 ? Plan: * Treatment: [...] stimated Average Glucose 125 - mg/dL * [facility], IT support 11/27/2024 09:30:14 : This order was created by the Interface. Kayley Morgan 12/01/2024 04:46:36 PM > See phone encounter * Procedure Codes: 3 075F SYST BP GE 130 - 139MM HG, 3079F DIAST BP 80-89 MM HG, 3044F HG A1C LEVEL LT 7.0% * Follow Up: 6 Months * Images: Billing Information: * Visit Code: 43639 Office Visit, Est Pt., Level 4. * Procedure Codes: 3075F SYST BP GE 130 - 139MM HG. 3079F DIAST BP 80-89 MM HG. 3044F HG A1C LEVEL LT 7.0%. * Electronic signature of Maribell Tanner MD on 03/19/2025 at 09:04 AM EDT Sign off status: Pending * Provider: Ronnie Tanner M.D. Date: 0 11/25/2024 Generated for Madalyn ng/Fawilderg/eTransmitting on: 0 03/19/2025 09:04 AM EDT History [...]
--- OUTSIDE RECORDS SUMMARY | 2025-02-03 12:30 | XMS_ITS ---
[facility] Address [address] [place] [id number] Care Team Providers Care Windows Application Packager Name Role Phone Ciro Silver Primary Care Provider [phone] Bailey Ahmadi Unavailable [phone] Allergies No Known Allergies Reason For Referral Diagnosis 1 Hernia (K46.9) Referral Organization [facility] Referring Provider First Name Bailey Referring Provider Last Name Daiana Referring Provider Speciality Physician Shank Breaker Referred Provider Specialty General Surg simba General Notes Bailey Ahmadi 04:28:51 PM >Pt needs to see Dr. Chamberlain or Liz. Please call patient after 4pm., Nayeil Carson 02/04/2025 09:24:08 AM > lv for BJ to call me back, Nayeli Carson 02/08/2025 10:34:16 AM > 02/11/2025 at 01:00pm; patient informed Referral Priority Routine REASON FOR VISIT hernia Medications Medication SIG (Take, Route, Frequency, Duration) Notes Start Date End Date Status CareTouch CPAP & BIPAP Hose 1 DIRECTED 10/18/19 Active CPAP SUPPLIES DIRECTED 10/10/2022 Act princess Nabumetone 750 MG 2 tab(s) orally once a day; Duration: 90 days Active Montelukast Sodium 10 MG 1 tablet Orally once daily; Duration: 90 days Active Contrave 8-90 MG as directed Orally O nce a day; Duration: 90 days 05/27/2024 Active Loratadine 10 MG 1 tablet Orally Once a day; Duration: 90 days Active SM Vitamin D3 100 MCG (4000 UT) 1 tab(s) orally once a day 03/23/2011 Active Atorvastatin Calcium 40 MG 1 tab(s) oral ly once a day (at bedtime) Active Zolpidem Tartrate 10 MG 1 tab(s) orally once a day (at bedtime); Duration: 90 days 12/21/2024 Active Aspirin 325 MG 1 tab(s) orally once a day 06/06/2015 Active Albuterol Sulfate HFA 108 (90 Base) MCG/ACT INHALE 2 PUFFS EVERY 6 HOURS NEEDED 30; Duration: 30 Active amLODIPine Besylate 10 MG TAKE 1 TABLET BY MOUTH EVERY DAY FOR 90 DAYS Active Vital Signs Blood pressure systolic 120 mm Hg 02/04/20 Blood pressure diastolic 80 mm Hg 025 Heart Rate 87 /min 02/03/2025 Height 69 in 02/03/2025 Weight 208.0 lbs 02/03/2025 BMI 30.71 kg/m2 02/03/2025 A Encounters Encounter Location Date Provider Diagnosis [facility] [address] [place], [place] [phone] 02/03/2025 Bailey Ahmadi Hernia K46.9 Assessments Encounter Date Diagnosis (ICD Code) Assessment Notes Treatment Notes Treatment Clinical Notes Section Notes 02/03/2025 Hernia (ICD-10 - K46.9) Plan Of Treatment Referrals Referral Date Details 02/03/2025 02/03/2025 Next Appt Details Follow Up: with surgery, Ana Cristina son: Provider Name:Silver Alexander , 05/26/2025 04:15:00 PM, [address], [address], [place], [place], [id number], Progress Notes * Devin GAGEDOB:1960 (64 yo M)Acc No.[id number]:02/03/2025 Progress Notes Patient: Devin BROWNE Provider: KISHA Pina :1960 A ge:64 Y S ex:Male Date:02/03/2025 Address:[address] [place], [place] [id number] Pcp:Silver Tanner Subjective: * Chief Complaints: * 1 . Hernia. * HPI: G astroenterology: The pt is here today with c/o abdominal pain. Pt states he started today with pain in the left side of his abdomen where his surgery scar is. Pt states he the left kidney removed 6 months ago. 64 year old male presents with c/o Abdominal Pain l eft upper quadrant. Denies : Nausea. D enies : Vomiting. D enies : Diarrhea. D enies : Fever. * ROS: D ERMATOLOGY: no R sonali. n o H kristie. G ASTROENTEROLOGY: no N ausea. n o V omiting. n o D iarrhea.? U ROLOGY: no D ifficulty urinating. n [...] yes. Marital Status: . 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 Past smoking status: yes, PPD:1 , [...] directed Orally Once a day , Taking Albuterol Sulfate HFA 108 (90 Base) MCG/ACT Aerosol Solution INHALE 2 PUFFS EVERY 6 HOURS NEEDED 30 , Taking amLODIPine Besylate 10 MG Tablet TAKE 1 TABLET BY MOUTH EVERY DAY FOR 90 DAYS , Taking Atorvastatin Calcium 40 MG Tablet 1 tab(s) orally once a day (at bedtime) , Taking Zolpidem Tartrate 10 MG Tablet 1 tab(s) orally once a day (at bedtime) , Taking Loratadine 10 MG Tablet 1 tablet Orally Once a day , Medication List reviewed and reconciled with the patient * Allergies: N .K.D.A. Objective: * Vitals: W t: 208.0, Temp: 98.2, BP: 120/80, HR: 87, Nurse: daniele, Ht: 69, BMI:30.71. A. * Examination: G eneral Examination: General Appearance: N AD. C hest: n ormal shape and expansion. H eart: R SR. L ungs: c lear to auscultation. A bdomen: h galenia present along recent surgical scar, tender. Assessment: * Assessment: 1. H kurtis - K46.9 (Primary) Plan: * Treatment: * Follow Up: w ith surgery * Images: Billing Information: * Visit Code: 92916 Office Visit, Est Pt., Level 3. * Procedure Codes: * Electronic signature of KISHA Ndiaye on 03/19/2025 at 09:03 AM EDT Sign off status: Pending * Provider: KISHA Pina Date: 0 02/03/2025 Generated for Madalyn hernandez/Salma/eTransmitting on: 0 03/19/2025 09:03 AM EDT History and Physical Notes * HPI (History of Present Illness) Category Sub-Category Detail Notes Category Not es Gastroenterology Fever Vomiting Abdominal Pain left upper quadrant Diarrhea Nausea Examination Category Sub-Category Detail Notes Category Not es General Examination Heart: RSR Lungs: clear to auscultatio n Abdomen: hernia present along recent surgical scar, tender General Appearance: NAD Chest: normal shape and exp ansion Consultation Request Notes Referral Date Referring Provider Referred Provider Not es 02/03/2025 Bailey Ahmadi ,
[2025-03-19 07:50] VITALS: BMI 30.2
--- OUTSIDE RECORDS SUMMARY | 2025-03-19 09:04 | XMS_ITS | Patient Health Record ---
[facility] [address] [place] [id number] Care Team Providers Care Ropewalk Rope Maker Name Role Phone WampumAbe giraldoian Primary Care Provider [phone] Bailey Ahmadi Unavailable [phone] Allergies No Known Allergies Results Component Value Reference Range Notes 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 Performing Lab: Notes/Report: 2 left renal masses consistent with renal neoplasm H-BUN/CREAT Reviewed date:07/15/2024 11:24:42 AM Interpretation:Normal Performing Lab: Notes/Report: BUN 18 9-20 mg/dl CREATT 1.00 0.66-1.25 mg/dl GFRAA 91 >60 ML/MIN EGFR 75 >60 ml/min Estimated Average Glucose Reviewed date:12/01/2024 04:46:43 PM Interpretation:125 Performing Lab: Notes/Report: Test performed by [facility] [employer] [address] [place] [address] , [address], [place] [address] Renaldo Schwab MD, Customer Training Specialist CLIA: [id number] Estimated Average Glucose (eAG) 125 Estimated Average [...] Interpretation:Normal Performing Lab: Notes/Report: Test performed by [facility] , [address], [place] [address] Renaldo Schwab MD, Customer Training Specialist CLIA: [id number] Uric Acid 6.6 3.4-8.0 mg/dL P-Microalbumin/Creatinine, R andom Urine Sample Reviewed date:12/01/2024 04:46:43 PM Interpretation:a/c 75 Performing Lab: Notes/Report: Test performed by [facility] , [place] [address] Renaldo Schwab MD, Customer Training Specialist CLIA: [id number] Albumin/Creatinine Ratio, Urine 75 0-30 ug/m g Microalbumin, Urine, Random 9.9 Creatinine, Urine 132.0 P-TSH reflex to FT4 Reviewed date:12/01/2024 04:46:43 PM Interpretation:Normal Performing Lab: Notes/Report: Test performed by [facility] , [address], [place] [address] Renaldo Schwab MD, Customer Training Specialist CLIA: [id number] TSH reflex to FT4 1.79 0.43-5.25 mU/L P-PSA Reviewed date:12/01/2024 04:46:43 PM Interpretation:Normal Performing Lab: Notes/Report: Test performed by [facility] [address] , [place] [address] Renaldo Schwab MD, Customer Training Specialist CLIA: [id number] PSA 0.56 <4.00 ng/mL Please note this is an ultrasensitive PSA assay with a lower limit of detection of 0.014 ng/mL. This test is performed by the [employer] ECLIA methodology. Values obtained with different assay methods or kits cannot be directly compared. P-Lipid Panel Reviewed date:12/01/2024 04:46:42 PM Interpretation:trigs 178 Performing Lab: Notes/Report: Test performed by [facility] [address] , [place] [address] Renaldo Schwab MD, Customer Training Specialist CLIA: [id number] Cholesterol 149 <200 mg/dL Triglycerides 178 <150 [...] Interpretation:6.0 Performing Lab: Notes/Report: Test performed by [facility], [place] [address] [facility] , [address], [place] [address] Renaldo Schwab MD, Customer Training Specialist CLIA: [id number] Hemoglobin A1C 6.0 <5.7 % The following HbA1c ranges recommended by the [place] [employer] (ADA) may be used as an aid in the diagnosis of diabetes mellitus. HbA1c Suggested Diagnosis >=6.5% Diabetic 5.7% - 6.4% Pre-Diabetic <5.7% Non-Diabetic P-Comprehensive Metabolic Pa flaco (CMP) Reviewed date:12/01/2024 04:46:42 PM Interpretation:Cr 1.57, gfr 59 Performing Lab: Notes/Report: Test performed by [facility], [facility] [address] [place] [address] , [address], [place] [address] Renaldo Schwab MD, Customer Training Specialist CLIA: [id number] Sodium 140 135-145 mmol/L Potassium 4.4 3.5-5.3 [...] 0.6 <0.2-1.2 mg/dL A/G Ratio 1.9 1.1-2.5 CBC Fingerstick (in house) Reviewed date:09/09/2024 04:22:02 [...] - 38 plat 207 100 - 400 Glucose (In-House) Reviewed date:05/29/2024 01:25:32 PM Interpretation:108 Performing Lab: Notes/Report: 108 blood glucose 108 74 - 106 mg/dL Glycohemoglobin A1c (in hous e) Reviewed date:05/29/2024 01:26:29 PM Interpretation:5.8, normal Performing Lab: Notes/Report: 5.8, normal glycohemoglobin 5.8% 5 - 6.5 % CT Scan : Chest, low dose Reviewed date:06/22/2024 09:42:41 AM Interpretation:consider renal mass protocol CT Performing Lab: Notes/Report: consider renal mass protocol CT Medications Medication SIG (Take, Route, Frequency, Duration) Notes Start Date End Date Status Loratadine 10 MG 1 tablet Orally Once a day; Duration: 90 days Active amLODIPine Besylate 10 MG 1 tablet Orall y Once a day; Duration: 90 days Active Montelukast Sodium 10 MG 1 tablet Orally once daily; Duration: 90 days Active Atorvastatin Calcium 40 MG 1 tablet at b edtime orally Once a day; Duration: 90 days Active SM Vitamin D3 100 MCG (4000 UT) 1 tab(s) orally once a day 03/23/2011 Active [employer]Touch CPAP & BIPAP Hose 1 DIRECTED 10/18/19 Active CPAP SUPPLIES DIRECTED 10/10/2022 Act princess Contrave 8-90 MG as directed Orally O [...] Status Risk Notes Problem Vitamin D deficiency (93004000) Vitamin D deficiency NOS (268.9) Active confirmed Problem Insomnia (595887212) Insomnia (G47.00) Active confirmed Problem Essential hypertension (25216467) Essential hypertension (I10) Active confirmed Problem Body mass index 30+ - obesity (517480822) BMI 30.0-30.9,adult (Z68.30) Active confirmed Problem Impaired fasting glucose (011552799) Impaired fasting glucose (R73.01) Active confirmed Problem Vitamin D deficiency (83313240) Vitamin D deficiency, unspecified (E55.9) Active confirmed Problem Mixed hyperlipidemia (678057999) Mixed hyperlipidemia (E78.2) Active confirmed Problem Depressive disorder (08286709) Depressive disorder (F32.9) Active confirmed Problem Obstructive sleep apnea syndrome (08311813) Obstructive sleep apnea syndrome (G47.33) Active confirmed Problem Gout (29423585) Gout, unspecifie d cause, unspecified chronicity, unspecified site (M10.9) Active confirmed Problem Osteoarthritis of knee (351376586) Primary osteoarthritis of both knees (M17.0) Active confirmed Problem Hypersomnia (37117912) Hypersomnia (G47.10) Active confirmed Problem Tobacco user (374992425) Cigarette nicotine dependence without complication (F17.210) Active confirmed Problem Artificial knee joint present (147655295810) Status post right knee replacement (Z96.651) Active confirmed Problem Allergic rhinitis (46656559) Allergic rhinitis, unspecified allergic rhinitis trigger, unspecified rhinitis seasonality (J30.9) Active confirmed Problem Arthritis of right knee (2329140331940908 ) Arthritis of right knee (M17.11) Active confirmed Problem Obesity (686634874) Non morbid obesity (E66.9) Active confirmed Problem Arthritis of left knee (9019246230378764 ) Arthritis of left knee (M17.12) Active confirmed Problem Absent kidney (188492767) S/p nephrectomy (Z90.5) Active confirmed Vital Signs Heart Rate 87 /min 02/03/2025 A Blood pressure diastolic 80 mm Hg 02/03/2025 A Height 69 in 02/03/2025 A Blood pressure systolic 120 mm Hg 02/03/2025 A Weight 208.0 lbs 02/03/2025 A BMI 30.71 kg/m2 02/03/2025 A Encounters Encounter Location Date Provider Diagnosis [facility] [address] [facility] [address] [place], [place] [id number] 05/27/2024 Silver Wampum Essential hypertensi on I10 ; Mixed hyperlipidemia E78.2 ; Polyarthralgia M25.50 ; Impaired fasting glucose R73.01 ; Personal history of nicotine dependence Z87.891 ; Screening for lung cancer Z12.2 ; Non morbid obesity E66.9 and Encounter for immunization Z23 [facility] [address] [facility] [address] [place], [place] [id number] 09/09/2024 Silver Wampum Acute URI J06.9 and S/p nephrectomy Z90.5 [facility] [address] [facility] [address] [place], [place] [id number] 11/25/2024 Silver Wampum Essential hypertensi on I10 ; Mixed hyperlipidemia E78.2 ; Vitamin D deficiency, unspecified E55.9 ; Impaired fasting glucose R73.01 ; Gout, unspecified cause, unspecified chronicity, unspecified site M10.9 ; Prostate cancer screening Z12.5 ; S/p nephrectomy Z90.5 and BMI 30.0-30.9,adult Z68.30 [facility] [address] [place], [place] [id number] 02/03/2025 Bailey Crowdy Hernia K46.9 [facility] [address] [facility] [address] [place], [place] [id number] 03/27/2024 Silver Wampum Essential hypertensi on I10 and Insomnia G47.00 [facility] [address] [facility] [address] [place], [place] [id number] 04/09/2024 Silver Wampum [facility] [address] [facility] [address] [place], [place] [id number] 06/12/2024 Silver Wampum [facility] [address] [place], [place] [id number] 06/22/2024 Silver Wampum 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 [facility] [address] [place], [place] [id number] 06/25/2024 Silver Wampum Insomnia G47.00 [facility] [address] [place], [place] [id number] 06/29/2024 Silver Wampum Non morbid obesity E 66.9 [facility] [address] [place], [place] [id number] 07/03/2024 Silver Wampum Non morbid obesity E 66.9 [facility] [address] [place], [place] [id number] 07/16/2024 Silver Wampum 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 [facility] [address] [place], [place] [id number] 07/28/2024 Silver Wampum [facility] [address] [place], [place] [id number] 09/22/2024 Silver Wampum Insomnia G47.00 [facility] [address] [place], [place] [id number] 11/26/2024 Silver Wampum [facility] [address] [place], [place] [id number] 12/01/2024 Silevr Wampum [facility] [address] [place], [place] [id number] 12/21/2024 Silver Wampum Insomnia G47.00 [facility] [address] [place], [place] [id number] 01/18/2025 Silver Wampum Assessments Encounter Date Diagnosis (ICD Code) Assessment Notes Treatment Notes Treatment Clinical Notes Section Notes 03/27/2024 Essential hypertension (ICD-10 - I10) 05/27/2024 Essential hypertension (ICD-10 - I10) 05/27/2024 Mixed hyperlipidemia (ICD-10 - E78.2) 06/22/2024 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) 06/25/2024 Insomnia (ICD-10 - G47.00) 06/29/2024 Non morbid obesity (ICD-10 - E66.9) 07/03/2024 Non morbid obesity (ICD-10 - E66.9) [...] Vitamin D deficiency, unspecified (ICD-10 - E55.9) 05/27/2024 Polyarthralgia (ICD-10 - M25.50) 03/27/2024 Insomnia (ICD-10 - G47.00) 05/27/2024 Impaired fasting glucose (ICD-10 - R73.01) 11/25/2024 Impaired fasting glucose (ICD-10 - R73.01) 11/25/2024 Gout, unspecified cause, unspecified chronicity, unspecified site (ICD-10 - M10.9) 05/27/2024 Personal history of nicotine dependence (ICD-10 - Z87.891) 05/27/2024 Screening for lung cancer (ICD-10 - Z12.2) 11/25/2024 Prostate cancer screening (ICD-10 - Z12.5) 05/27/2024 Non morbid obesity (ICD-10 - E66.9) 11/25/2024 S/p nephrectomy (ICD-10 - Z90.5) Need reports from urology including pathology 11/25/2024 BMI 30.0-30.9,adult (ICD-10 - Z68.30) 05/27/2024 Encounter for immunization (ICD-10 - Z23) Plan Of Treatment Pending Test Test Name Order Date sleep study 11/25/2023 Next Appt Details Provider Name:Silver Duenas Catherine ry, 05/26/2025 04:15:00 PM, [address], [place], [id number], Insurance Providers Payer Name Payer Address Payer Phone Subscriber Number Group Number Insured Name Patient Relationship to Insured Coverage Start Date Coverage End Date [employer] [place] [employer] [address] [place] [address] [id number] Devin Figueroa Self - patient is [...]
--- NOTE | 2025-03-19 09:39 | ECG_ITS ---
APPROVED REPORT Exam: Resting ECG HR:62 bpm ECG Measurements Heart Rate 62 AXES AR 202 P 49 QRSd 113 QRS 16 QT 409 T 41 QTc 414 Conclusion SINUS RHYTHM MODERATE INTRAVENTRICULAR CONDUCTION DELAY [105+ ms QRS DURATION, 80+ ms Q/S IN V1/V2, NO Q AND 60+ ms R IN I/aVL/V5/V6] ABNORMAL ECG UNCONFIRMED REPORT Electronically signed by : Bryant Wu MD 03/23/2025 19:03:30
[2025-03-19 09:58] LABS: Hematocrit 43.4 % (42.0-52.0); Hemoglobin 14.8 g/dL (14.1-18.0); Immature Granulocytes % 0.3 %; Mean Corpuscular HGB Conc 34.1 g/dL (31.8-35.4); Mean Corpuscular Hemoglobin 32.7 pg (27.0-31.2); Mean Corpuscular Volume 95.8 fl (80-94); Nucleated Red Blood Cells % 0 %; Platelet Count 243 K/mm3 (142-424); Red Blood Count 4.53 M/mm3 (4.60-6.20); Red Cell Distribution Width-SD 47.5 fL; White Blood Count 7.2 K/mm3 (4.8-10.8)
[2025-03-19 10:08] LABS: Anion Gap 11.3 mEq/L (5-15); Blood Urea Nitrogen 21 mg/dl (9-20); Calcium 10.0 mg/dl (8.4-10.2); Carbon Dioxide 26 mmol/L (22.0-30.0); Chloride 107 mmol/L (98-107); Creatinine Clearance Estimated 65 mL/min (50-200); Creatinine,Serum 1.50 mg/dl (0.66-1.25); Estimated Glomerular Filt Rate 47 ml/min (>60); GFR (African American) 57 ML/MIN (>60); Glucose 108 mg/dl (74-100); Potassium 4.3 mmoL/L (3.5-5.1); Sodium 140 mmol/L (136-145)
== END 2025-03-19 23:59 | disposition home or self-care (01) ==
LOC: PREOP 09:02
PROVIDERS: PCP Family Medicine; Visit Provider Surgery
DX: Z01.810 Encounter for preprocedural cardiovascular examination (principal); Z01.812 Encounter for preprocedural laboratory examination; I45.89 Other specified conduction disorders; R94.31 Abnormal electrocardiogram [ECG] [EKG]
CPT/HCPCS: 80048; 85025; 93005

== ENCOUNTER 2025-03-29 14:01 | Inpatient (IN) | payer BC, SELFPAY ==
--- OUTSIDE RECORDS SUMMARY | 2024-09-09 07:30 | XMS_ITS ---
Author Organization [facility] Address [address] [facility] [address] [place] [id number] Care Team Providers Care Tire Installer Name Role Phone Silver Tanner Primary Care Provider Allergies No Known Allergies Results Component Value Reference Range Notes CBC Fingerstick (in house) Reviewed date:09/09/2024 04:22:02 PM Interpretation: Performing Lab: Notes/Report: wbc 13.8 3.5 - 10 lym 21.3% 15 - 50 mid 5.3% 2 - 15 gran 73.4% 35 - 80 rbc 5.04 3.5 - 5.5 hgb 15.8 11.5 - 16.5 hct 46.6 35 - 55 mcv 92.4 75 - 100 mch 31.4 25 - 35 mchc 33.9 31 - 38 plat 207 100 - 400 REASON FOR VISIT F/U and poss head cold Medications Medication SIG (Take, Route, Frequency, Duration) Notes Start Date End Date Status Contrave 8-90 MG as directed Orally O nce a day; Duration: 90 days 05/27/2024 Active Zolpidem Tartrate 10 MG 1 tab(s) orally once a day (at bedtime); Duration: 90 days 06/25/2024 Active Albuterol Sulfate HFA 108 (90 Base) MCG/ACT INHALE 2 PUFFS EVERY 6 HOURS NEEDED; Duration: 30 Active Montelukast Sodium 10 MG 1 tablet Orally once daily; Duration: 90 days Active Loratadine 10 MG 1 tab(s) orally once a day; Duration: 90 days Active CPAP SUPPLIES DIRECTED 10/10/2022 Act princess CareTouch CPAP & BIPAP Hose 1 DIRECTED 10/18/19 23 Active amLODIPine Besylate 10 MG 1 tab(s) orall y once a day; Duration: 90 days Active Atorvastatin Calcium 40 MG 1 tab(s) oral ly once a day (at bedtime); Duration: 90 days Active Nabumetone 750 MG 2 tab(s) orally once a day; Duration: 90 days Active Promethazine-DM 6.25-15 MG/5ML 5 ml as needed Orally every 6 hrs 09/09/2024 Active Zithromax Z-Edy 250 MG as directed Orall y once daily; Duration: 5 day(s) 09/09/2024 Active SM Vitamin D3 100 MCG (4000 UT) 1 tab(s) orally once a day 03/23/2011 Active Aspirin 325 MG 1 tab(s) orally once a day 06/06/2015 Active Problems Problem Type SNOMED Code ICD Code Onset Dates Problem Status W/U Status Risk Notes Problem S/p nephrectomy (Z90.5) Active confirmed Vital Signs Weight 206.2 lbs 09/09/2024 Blood pressure systolic 122 mm Hg 09/09/19 25 Blood pressure diastolic 82 mm Hg 025 Heart Rate 94 /min 09/09/2024 Height 69 in 09/09/2024 BMI 30.45 kg/m2 09/09/2024 Encounters Encounter Location Date Provider Diagnosis [facility] [address] [id number] 09/09/2024 Silver Tanner Acute URI J06.9 and S/p nephrectomy Z90.5 Assessments Encounter Date Diagnosis (ICD Code) Assessment Notes Treatment Notes Treatment Clinical Notes Section Notes 09/09/2024 Acute URI (ICD-10 - J06.9) 09/09/2024 S/p nephrectomy (ICD-10 - Z90.5) Plan Of Treatment Medication Medication Name Sig Start Date Stop Date Notes Promethazine-DM 6.25-15 MG/5ML 5 ml as n eeded Orally every 6 hrs 09/09/2024 Zithromax Z-Edy 250 MG as directed Orall y once daily; Duration: 5 day(s) 09/09/2024 Next Appt Details Follow Up: via phone to repo rt progress, Reason: Provider Name:Silver Alexander ry, 05/26/2025 04:15:00 PM, [address], [address], [place], [place], [id number], Progress Notes * Devin FIGUEROADOB:1960 (64 yo M)Acc No.[id number]:09/09/2024 Progress Notes Patient: Devin BROWNE Provider: Ronnie Tanner M.D. :1960 A ge:64 Y S ex:Male Date:09/09/2024 Address:[address] [place] [address] [place], [place], [id number] Subjective: * Chief Complaints: * 1 . F/U and poss head cold. * HPI: E NT/respiratory: 64 year old male presents with c/o cough P t complains of cough for a couple weeks. Pt states cough is mostly dry but does have clear production some times. Pt states he is always cold as well. * ROS: D ERMATOLOGY: no R sonali. n o H kristie. G ASTROENTEROLOGY: no N ausea. n o V omiting. U ROLOGY: no D ifficulty urinating. n o B lood in urine. * Medical History: G out, Hypertension, Hyperlipidemia, Sleep Apnea, Insomnia, Allergic Rhinitis, Vitamin D Deficiency, LT Heart Cath, 06/2015, Impaired Fasting Glucose, 1 PPD Smoker since age 18, lung cancer screening initiated 2015, Colon Polyps. * Surgical History: T ooth Extraction 02/2008, Nose - Straightened Nose and Removed a Spur 09/2018, Colonoscopy 2010, Rt Knee Replacement 08/16/2022, Left knee replacement 02/27/2024, nephrectomy, left Aug 2024. * Hospitalization/Major Diagno stic Procedure: [facility] . * Family History: F ather: alive, heart condition. M other: alive, hypertension. 1 brother(s) . 2 son(s) . . * Social History: C URRENT TOBACCO USE S moking Status: Patient does smoke, packs per day: 1, number of cigarettes per day: 20, Since age of: 15, Smoking preference: cigarettes. C affeine: yes, frequency:. Home smoke detector use: yes. Marital Status: . Occupation: [employer] in [place], [place]. Past smoking status: yes, PPD:1 , years: since age of 18 yrs. ,determination:. Recreational drug use: no. Alcohol: Type: , Frequency: ,Years: , Determination:. * Medications: T aking Aspirin 325 MG Tablet Delayed Release 1 tab(s) orally once a day , Taking SM Vitamin D3 100 MCG (4000 UT) Capsule 1 tab(s) orally once a day , Taking CareTouch CPAP & BIPAP Hose MACHINE AND SUPPLIES 1 DIRECTED , Taking CPAP SUPPLIES DIRECTED , Taking Atorvastatin Calcium 40 MG Tablet 1 tab(s) orally once a day (at bedtime) , Taking amLODIPine Besylate 10 MG Tablet 1 tab(s) orally once a day , Taking Nabumetone 750 MG Tablet 2 tab(s) orally once a day , Taking Montelukast Sodium 10 MG Tablet 1 tablet Orally once daily , Taking Albuterol Sulfate HFA 108 (90 Base) MCG/ACT Aerosol Solution INHALE 2 PUFFS EVERY 6 HOURS NEEDED , Taking Zolpidem Tartrate 10 MG Tablet 1 tab(s) orally once a day (at bedtime) , Taking Contrave 8-90 MG Tablet Extended Release 12 Hour as directed Orally Once a day , Taking Loratadine 10 MG Tablet 1 tab(s) orally once a day , Medication List reviewed and reconciled with the patient * Allergies: N .K.D.A. Objective: * Vitals: W t:206.2, Temp:98.0, BP:122/82, HR:94, O2 Sat:97% on RA, Nurse:elkin, Ht: 69, BMI:30.45. * Examination: E NT/Respiratory: General Appearance: N AD. E yes: P ERRLA, sclera clear. O ral cavity : erythema without exudate on pharynx. N danilo : n o cervical lymphadenopathy. H eart : R RR, normal S1 S2. L ungs: c lear to auscultation bilaterally. Assessment: * Assessment: 1. A cute URI - J06.9 (Primary) 2 . S /p nephrectomy - Z90.5 ? Plan: * Treatment: Value Reference Range w bc 13.8 3.5 - 10 * l ym 21.3% 15 - 50 * m id 5.3% 2 - 15 * g ran 73.4% 35 - 80 * r bc 5.04 3.5 - 5.5 * h gb 15.8 11.5 - 16.5 * h ct 46.6 35 - 55 * m cv 92.4 75 - 100 * m ch 31.4 25 - 35 * m chc 33.9 31 - 38 * p lat 207 100 - 400 * Susanna [place] 09/09/2024 11:42:5 0 AM > , Provider reviewed results while patient in office. * Procedure Codes: 9 4760 [place], [address] CAPILLARY BLOOD DRAW, 44828 CBC WITH AUTO DIFF * Follow Up: v ia phone to report progress * Images: Billing Information: * Visit Code: 19529 Office Visit, Est Pt., Level 3. * Procedure Codes: [address] [place]. [address] CAPILLARY BLOOD DRAW. 78649 CBC WITH AUTO DIFF. * Electronic signature of Mariebll Tanner MD on 03/31/2025 at 12:34 PM EDT Sign off status: Pending * Provider: Ronnie Tanner M.D. Date: 0 09/09/2024 Generated for Madalyn hernandez/Salma/eTransmitting on: 0 03/31/2025 12:34 PM EDT History and Physical Notes * HPI (History of Present Illness) Category Sub-Category Detail Notes Category Not es ENT/respiratory cough Pt complains of cough for a couple weeks. Pt states cough is mostly dry but does have clear production some times. Pt states he is always cold as well Examination Category Sub-Category Detail Notes Category Not es ENT/Respiratory Oral cavity : erythema without exudate on pharynx Neck : no cervical lymphade nopathy Heart : RRR, normal S1 S2 Lungs: clear to auscultatio n bilaterally General Appearance: NAD Eyes: PERRLA, sclera clear
--- OUTSIDE RECORDS SUMMARY | 2024-11-25 12:15 | XMS_ITS ---
Author Organization [facility] Address [address] [facility] [address] [place], [place] [id number] Care Team Providers Care Leadership Coach Name Role Phone Silver Tanner Primary Care Provider Allergies No Known Allergies Results Component Value Reference Range Notes P-Comprehensive Metabolic Pa flaco (CMP) Reviewed date:12/01/2024 04:46:42 PM Interpretation:Cr 1.57, gfr 59 Performing Lab: Notes/Report: Test performed by [facility] [address] [place] [address] , [address], [place] [address] Renaldo Schwab MD, Valet Parker CLIA: [id number] Sodium 140 135-145 mmol/L Potassium 4.4 3.5-5.3 mmol/L Chloride 105 97-108 mmol/L CO2 22 22-32 mmol/L Glucose 82 65-99 mg/dL BUN 22 8-23 mg/dL Creatinine 1.57 0.70-1.30 mg/dL Calcium 9.5 8.6-10.4 mg/dL eGFR by Creatinine 49 >59 mL/min/1.73m2 Protein 7.2 6.0-8.3 g/dL Albumin 4.7 3.5-5.3 g/dL Alkaline Phosphatase 66 40-129 IU/L ALT (SGPT) 34 <5-55 IU/L AST (SGOT) 34 <5-46 IU/L Bilirubin, Total 0.6 <0.2-1.2 mg/dL A/G Ratio 1.9 1.1-2.5 P-Hemoglobin A1C Reviewed date:12/01/2024 04:46:42 PM Interpretation:6.0 Performing Lab: Notes/Report: Test performed by [facility] [address] [place] [address] Melissa Renteria C, [place] [address] Renaldo Schwab MD, Valet Parker CLIA: [id number] Hemoglobin A1C 6.0 <5.7 % The following HbA1c ranges recommended by the [place] [employer] (ADA) may be used as an aid in the diagnosis of diabetes mellitus. HbA1c Suggested Diagnosis >=6.5% Diabetic 5.7% - 6.4% Pre-Diabetic <5.7% Non-Diabetic P-Lipid Panel Reviewed date:12/01/2024 04:46:42 PM Interpretation:trigs 178 Performing Lab: Notes/Report: Test performed by [facility] [address] [place], [place] [address] [place] Melissa Renteria C, [place] [address] Renaldo Schwab MD, Valet Parker CLIA: [id number] Cholesterol 149 <200 mg/dL Triglycerides 178 <150 mg/dL HDL Cholesterol 48 >39 mg/dL Cholesterol / HDL Ratio 3.10 0.00-4.99 Ratio Non-HDL Cholesterol 101 <130 mg/dL LDL Cholesterol (Calculation) 65 <130 mg/dL LDL Cholesterol Levels* Less than 100 mg/dL Optimal 100 to 129 mg/dL Near Optimal/ Above Optimal 130 to 159 mg/dL Borderline High 160 to 189 mg/dL High 190 mg/dL and above Very High * Categories as recommended by the 2004 ATPIII guidelines LDL/HDL Ratio 1.4 <3.3 Ratio LDL Cholesterol Patient History Test Date: 11/25/2024 LDL Results: 65 Units: mg/dL % Change: - P-PSA Reviewed date:12/01/2024 04:46:43 PM Interpretation:Normal Performing Lab: Notes/Report: Test performed by [email or web address] , [address], [place] [address] Renaldo Schwab MD, Valet Parker CLIA: [id number] PSA 0.56 <4.00 ng/mL Please note this is an ultrasensitive PSA assay with a lower limit of detection of 0.014 ng/mL. This test is performed by the [employer] ECLIA methodology. Values obtained with different assay methods or kits cannot be directly compared. P-TSH reflex to FT4 Reviewed date:12/01/2024 04:46:43 PM Interpretation:Normal Performing Lab: Notes/Report: Test performed by [email or web address] , [address], [place] [address] Renaldo Schwab MD, Valet Parker CLIA: [id number] TSH reflex to FT4 1.79 0.43-5.25 mU/L P-Microalbumin/Creatinine, R andom Urine Sample Reviewed date:12/01/2024 04:46:43 PM Interpretation:a/c 75 Performing Lab: Notes/Report: Test performed by [email or web address] , [address], [place] [address] Renaldo Schwab MD, Valet Parker CLIA: [id number] Albumin/Creatinine Ratio, Urine 75 0-30 ug/mg Microalbumin, Urine, Random 9.9 Creatinine, Urine 132.0 P-Uric Acid Reviewed date:12/01/2024 04:46:43 PM Interpretation:Normal Performing Lab: Notes/Report: Test performed by [email or web address] , [address], [place] [address] Renaldo Schwab MD, Valet Parker CLIA: [id number] Uric Acid 6.6 3.4-8.0 mg/dL Estimated Average Glucose Reviewed date:12/01/2024 04:46:43 PM Interpretation:125 Performing Lab: Notes/Report: Test performed by [facility], [place] [address] [place] [address] , [address], [place] [address] Renaldo Schwab MD, Valet Parker CLIA: [id number] Estimated Average Glucose (eAG) 125 Estimated Average Glucose (eAG) is calculated using the equation eAG = (28.7 x HbA1c) - 46.7 based on the guidelines established by the ADA. If the patient has certain diseases including kidney disease, sickle cell anemia, thalassemia, or is taking medications such as dapsone, erythropoietin, or iron, eAG should not be evaluated. REASON FOR VISIT 6 month check up Medications Medication SIG (Take, Route, Frequency, Duration) Notes Start Date End Date Status Albuterol Sulfate HFA 108 (90 Base) MCG/ACT INHALE 2 PUFFS EVERY 6 HOURS NEEDED 30; Duration: 30 Active Zolpidem Tartrate 10 MG 1 tab(s) orally once a day (at bedtime); Duration: 90 days 09/24/2024 Active amLODIPine Besylate 10 MG TAKE 1 TABLET BY MOUTH EVERY DAY FOR 90 DAYS Active CPAP SUPPLIES DIRECTED 10/10/2022 Act princess Nabumetone 750 MG 2 tab(s) orally once a day; Duration: 90 days Active Montelukast Sodium 10 MG 1 tablet Orally once daily; Duration: 90 days Active Contrave 8-90 MG as directed Orally O nce a day; Duration: 90 days 05/27/2024 Active Loratadine 10 MG 1 tab(s) orally once a day; Duration: 90 days Active Aspirin 325 MG 1 tab(s) orally once a day 06/06/2015 Active SM Vitamin D3 100 MCG (4000 UT) 1 tab(s) orally once a day 03/23/2011 Active CareTouch CPAP & BIPAP Hose 1 DIRECTED 10/18/19 23 Active Atorvastatin Calcium 40 MG 1 tab(s) oral ly once a day (at bedtime) Active Problems Problem Type SNOMED Code ICD Code Onset Dates Problem Status W/U Status Risk Notes Problem Vitamin D deficiency, unspecified (E55.9) Active confirmed Problem Body mass index 30+ - obesity (793850783) BMI 30.0-30.9,adult (Z68.30) Active confirmed Vital Signs Weight 204.4 lbs 11/25/2024 Blood pressure systolic 130 mm Hg 11/26/19 25 Blood pressure diastolic 84 mm Hg 025 Heart Rate 82 /min 11/25/2024 Height 69 in 11/25/2024 BMI 30.18 kg/m2 11/25/2024 Encounters Encounter Location Date Provider Diagnosis Satya [address] [facility] 36 [facility] [address] [place] [id number] 11/25/2024 Silver Tanner Essential hypertensi on I10 ; Mixed hyperlipidemia E78.2 ; Vitamin D deficiency, unspecified E55.9 ; Impaired fasting glucose R73.01 ; Gout, unspecified cause, unspecified chronicity, unspecified site M10.9 ; Prostate cancer screening Z12.5 ; S/p nephrectomy Z90.5 and BMI 30.0-30.9,adult Z68.30 Assessments Encounter Date Diagnosis (ICD Code) Assessment Notes Treatment Notes Treatment Clinical Notes Section Notes 11/25/2024 Essential hypertension (ICD-10 - I10) 11/25/2024 Mixed hyperlipidemia (ICD-10 - E78.2) 11/25/2024 Vitamin D deficiency, unspecified (ICD-10 - E55.9) 11/25/2024 Impaired fasting glucose (ICD-10 - R73.01) 11/25/2024 Gout, unspecified cause, unspecified chronicity, unspecified site (ICD-10 - M10.9) 11/25/2024 Prostate cancer screening (ICD-10 - Z12.5) 11/25/2024 S/p nephrectomy (ICD-10 - Z90.5) Need reports from urology including pathology 11/25/2024 BMI 30.0-30.9,adult (ICD-10 - Z68.30) Plan Of Treatment Medication Medication Name Sig Start Date Stop Date Notes amLODIPine Besylate 10 MG TAKE 1 TABLET BY MOUTH EVERY DAY FOR 90 DAYS Atorvastatin Calcium 40 MG 1 tab(s) oral ly once a day (at bedtime) Treatment Notes Assessment Notes S/p nephrectomy Need reports from ur ology including pathology Next Appt Details Follow Up: 6 Months, Reason: Provider Name:Silver briggs, 05/26/2025 04:15:00 PM, [address] [facility] [facility] [address] [facility], [address], [place], [phone], Progress Notes * Devin GAGEDOB:1960 (64 yo M)Acc No.[id number]:11/25/2024 Progress Notes Patient: Devin BROWNE Provider: Ronnie Tanner M.D. :1960 A ge:64 Y S ex:Male Date:11/25/2024 Address:[address] [place] [address], Dwayne HAAS [id number] Subjective: * Chief Complaints: * 1 . 6 month check up. * HPI: C ardiology: 64 year old male presents with c/o BloodPressure at Home P t here for 6 mo f/u on hypertension, states he is doing well and does not have any concerns. c/o Hyperlipidemia P t is not fasting today. * ROS: D ERMATOLOGY: no R sonali. [...] yes. Marital Status: . Occupation: [employer] in [place], [place]. Past smoking status: yes, PPD:1 , [...] , Taking CPAP SUPPLIES DIRECTED , Taking Nabumetone 750 MG Tablet 2 tab(s) orally once a day , Taking Montelukast Sodium 10 MG Tablet 1 tablet Orally once daily , Taking Contrave 8- 90 MG Tablet Extended Release 12 Hour as directed Orally Once a day , Taking Loratadine 10 MG Tablet 1 tab(s) orally once a day , Taking Atorvastatin Calcium 40 MG Tablet 1 tab(s) orally once a day (at bedtime) , Taking amLODIPine Besylate 10 MG Tablet TAKE 1 TABLET BY MOUTH EVERY DAY FOR 90 DAYS , Taking Albuterol Sulfate HFA 108 (90 Base) MCG/ACT Aerosol Solution INHALE 2 PUFFS EVERY 6 HOURS NEEDED 30 , Taking Zolpidem Tartrate 10 MG Tablet 1 tab(s) orally once a day (at bedtime) , Discontinued Zithromax Z-Edy 250 MG Tablet as directed Orally once daily , Discontinued Promethazine-DM 6.25-15 MG/5ML Syrup 5 ml as needed Orally every 6 hrs , Medication List reviewed and reconciled with the patient * Allergies: N .K.D.A. Objective: * Vitals: W t:204.4, Temp:97.8, BP:130/84, HR:82, O2 Sat:95% on RA, Nurse:elkin, Ht: 69, BMI:30.18. * Examination: G eneral Examination: General Appearance: N AD. H eart: R SR. L ungs:?clear to auscultation. A bdomen: b owel sounds present, soft and nontender, well healed surgical scar in the left upper quadrant, may have a small hernia there as well. P eripheral pulses: n ormal (2+) bilaterally. E xtremities: n o leg edema. Assessment: * Assessment: 1. E ssential hypertension - I10 (Primary) 2 . M ixed hyperlipidemia - E78.2 3 . V itamin D deficiency, unspecified - E55.9 4 . I mpaired fasting glucose - R73.01 5 . G out, unspecified cause, unspecified chronicity, unspecified site - M10.9 6 . P rostate cancer screening - Z12.5 ?7. S /p nephrectomy - Z90.5 8 . B WI 30.0-30.9,adult - Z68.30 ? Plan: * Treatment: Value Reference Range A /G Ratio 1.9 1.1-2.5 - * A lbumin 4.7 3.5-5.3 - g/dL * A lkaline Phosphatase 66 40-129 - IU/L * A LT (SGPT) 34 <5-55 - IU/L * A ST (SGOT) 34 <5-46 - IU/L * B ilirubin, Total 0.6 <0.2-1.2 - mg/dL * B UN 22 8-23 - mg/dL * C alcium 9.5 8.6-10.4 - mg/dL * C hloride 105 97-108 - mmol/L * C O2 22 22-32 - mmol/L * C reatinine 1.57 H 0.70-1.30 - mg/dL * G lucose 82 65-99 - mg/dL * P otassium 4.4 3.5-5.3 - mmol/L * S odium 140 135-145 - mmol/L * P rotein 7.2 6.0-8.3 - g/dL * e GFR by Creatinine 49 L >59 - mL/min/1.73m2 * Kayley Morgan 12/01/2024 04: 46:36 PM > See phone encounter ?LAB: P-Microalbumin/Creatinine, Random Urine Sample (Collection Date & Time - 11/25/2024 03:30 PM)?a/c 75* Value Reference Range A lbumin/Creatinine Ratio, Urine 75 H 0-30 - ug /mg * C reatinine, Urine 132.0 - mg/dL * M icroalbumin, Urine, Random 9.9 - mg/dL * Kayley Morgan 12/01/2024 04: 46:36 PM > See phone encounter 2.?Mixed hyperlipidemia? Continue Atorvastatin Calcium Tablet, 40 MG, 1 tab(s), orally, once a day (at bedtime).?LAB: P-Comprehensive Metabolic Panel (CMP) (Collection Date & Time - 11/25/2024 03:30 PM)?Cr 1.57, gfr 59* Value Reference Range A /G Ratio 1.9 1.1-2.5 - * A lbumin 4.7 3.5-5.3 - g/dL * A lkaline Phosphatase 66 40-129 - IU/L * A LT (SGPT) 34 <5-55 - IU/L * A ST (SGOT) 34 <5-46 - IU/L * B ilirubin, Total 0.6 <0.2-1.2 - mg/dL * B UN 22 8-23 - mg/dL * C alcium 9.5 8.6-10.4 - mg/dL * C hloride 105 97-108 - mmol/L * C O2 22 22-32 - mmol/L * C reatinine 1.57 H 0.70-1.30 - mg/dL * G lucose 82 65-99 - mg/dL * P otassium 4.4 3.5-5.3 - mmol/L * S odium 140 135-145 - mmol/L * P rotein 7.2 6.0-8.3 - g/dL * e GFR by Creatinine 49 L >59 - mL/min/1.73m2 * Kayley Morgan 12/01/2024 04: 46:36 PM > See phone encounter ?LAB: P-Lipid Panel (Collection Date & Time - 11/25/2024 03:30 PM)?trigs 178 * Value Reference Range C holesterol / HDL Ratio 3.10 0.00-4.99 - Ratio * C holesterol 149 <200 - mg/dL * H DL Cholesterol 48 >39 - mg/dL * L DL Cholesterol (Calculation) 65 <130 - mg/d L * L DL/HDL Ratio 1.4 <3.3 - Ratio * N on-HDL Cholesterol 101 <130 - mg/dL * T riglycerides 178 H <150 - mg/dL * Kayley Morgan 12/01/2024 04: 46:36 PM > See phone encounter ?LAB: P-TSH reflex to FT4 (Collection Date & Time - 11/25/2024 03:30 PM)? Normal* Value Reference Range T SH reflex to FT4 1.79 0.43-5.25 - mU/L * Kayley Morgan 12/01/2024 04: 46:36 PM > See phone encounter 3.?Impaired fasting glucose?LAB: P-Comprehensive Metabolic Panel (CMP) (Collection Date & Time - 11/25/2024 03:30 PM)?Cr 1.57, gfr 59* Value Reference Range A /G Ratio 1.9 1.1-2.5 - * A lbumin 4.7 3.5-5.3 - g/dL * A lkaline Phosphatase 66 40-129 - IU/L * A LT (SGPT) 34 <5-55 - IU/L * A ST (SGOT) 34 <5-46 - IU/L * B ilirubin, Total 0.6 <0.2-1.2 - mg/dL * B UN 22 8-23 - mg/dL * C alcium 9.5 8.6-10.4 - mg/dL * C hloride 105 97-108 - mmol/L * C O2 22 22-32 - mmol/L * C reatinine 1.57 H 0.70-1.30 - mg/dL * G lucose 82 65-99 - mg/dL * P otassium 4.4 3.5-5.3 - mmol/L * S odium 140 135-145 - mmol/L * P rotein 7.2 6.0-8.3 - g/dL * e GFR by Creatinine 49 L >59 - mL/min/1.73m2 * Kayley Morgan 12/01/2024 04: 46:36 PM > See phone encounter ?LAB: P-Hemoglobin A1C (Collection Date & Time - 11/25/2024 03:30 PM)?6.0* Value Reference Range H emoglobin A1C 6.0 H <5.7 - % * Kayley Morgan 12/01/2024 04: 46:36 PM > See phone encounter 4.?Gout, unspecified cause, unspecified chronicity, unspecified site?LAB: P-Uric Acid (Collection Date & Time - 11/25/2024 03:30 PM)?Normal* Value Reference Range U matthew Acid 6.6 3.4-8.0 - mg/dL * Kayley Morgan 12/01/2024 04: 46:36 PM > See phone encounter 5.?Prostate cancer screening?LAB: P-PSA (Collection Date & Time - 11/25/2024 03:30 PM)?Normal* Value Reference Range P SA 0.56 <4.00 - ng/mL * Kayley Morgan 12/01/2024 04: 46:36 PM > See phone encounter 6.?S/p nephrectomy? Notes: Need reports from urology including pathology?? * Labs: * L ab: Estimated Average Glucose (Collection Date & Time - 11/25/2024 03:30 PM) 1 25 Value Reference Range E stimated Average Glucose 125 - mg/dL * [facility], IT support 11/27/2024 09:30:14 : This order was created by the Interface. Kayley Morgan 12/01/2024 04:46:36 PM > See phone encounter * Procedure Codes: 3 075F SYST BP GE 130 - 139MM HG, 3079F DIAST BP 80-89 MM HG, 3044F HG A1C LEVEL LT 7.0% * Follow Up: 6 Months * Images: Billing Information: * Visit Code: 29198 Office Visit, Est Pt., Level 4. * Procedure Codes: 3075F SYST BP GE 130 - 139MM HG. 3079F DIAST BP 80-89 MM HG. 3044F HG A1C LEVEL LT 7.0%. * Electronic signature of Maribell Tanner MD on 03/31/2025 at 12:35 PM EDT Sign off status: Pending * Provider: Ronnie Tanner M.D. Date: 0 11/25/2024 Generated for Ruperti ng/Faxing/eTransmitting on: 0 03/31/2025 12:35 PM EDT History and Physical Notes * HPI (History of Present Illness) Category Sub-Category Detail Notes Category Not es Cardiology BloodPressure at Home Pt here fo r 6 mo f/u on hypertension, states he is doing well and does not have any concerns Hyperlipidemia Pt is not fasting to day Examination Category Sub-Category Detail Notes Category Not es General Examination Heart: RSR Lungs: clear to auscultatio n Abdomen: bowel sounds present , soft and nontender, well healed surgical scar in the left upper quadrant, may have a small hernia there as well Extremities: no leg edema General Appearance: NAD Peripheral pulses: normal (2+) bilatera lly
--- OUTSIDE RECORDS SUMMARY | 2025-02-03 12:30 | XMS_ITS ---
[facility] [address] [place] [id number] Care Team Providers Care Estate Attorney Name Role Phone Ciro Silver Primary Care Provider Bailey Ahmadi Unavailable [phone] Allergies No Known Allergies Reason For Referral Diagnosis 1 Hernia (K46.9) Referral Organization [facility] Referring Provider First Name Bailey Referring Provider Last Name Daiana Referring Provider Speciality Physician Manufacturing Executive Referred Provider Specialty General Surg simba General [...] [address] [place], [place] [phone] 02/03/2025 Bailey Ahmadi Hernia K46.9 Assessments Encounter Date Diagnosis (ICD Code) Assessment Notes Treatment Notes Treatment Clinical Notes Section Notes 02/03/2025 Hernia (ICD-10 - K46.9) Plan Of Treatment Referrals Referral Date Details 02/03/2025 02/03/2025 Next Appt Details Follow Up: with surgery, Ana Cristina son: Provider Name:Silver Alexander , 05/26/2025 04:15:00 PM, [address], [address], [place], [place], [id number], Progress Notes * Devin GAGEDOB:1960 (64 yo M)Acc No.[id number]:02/03/2025 Progress Notes Patient: Devin BROWNE Provider: KISHA Pina :1960 A ge:64 Y S ex:Male Date:02/03/2025 Address:[address] [place], [place] [id number] Pcp:Silver Tanner Subjective: * Chief Complaints: * [...] yes. Marital Status: . 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 Past smoking status: yes, PPD:1 , [...] * Images: Billing Information: * Visit Code: 00951 Office Visit, Est Pt., Level 3. * Procedure Codes: * Electronic signature of KISHA Ndiaye on 03/31/2025 at 12:34 PM EDT Sign off status: Pending * Provider: KISHA Pina Date: 0 02/03/2025 Generated for Madalyn hernandez/Salma/eTransmitting on: 0 03/31/2025 [...]
[2025-03-19 10:44] VITALS: BMI 30.2
[2025-03-29] VITALS (14 sets, daily range): BP systolic 130–170; BP diastolic 77–106; PULSE 74–91; RESP 16–18; TEMP 36.1–43; O2SAT 93–99; BMI 30.2
[2025-03-29] MEDS: LACTATED RINGERS 1000ML 1,000 ML 25 ML IV (09:31)
--- NOTE | 2025-03-29 10:09 | EXP.ANES.CKL ---
[facility] Disclaimer: The information contained in this section may have been updated after the patient was seen, as this information can be updated by other users. Medical History COPD (chronic obstructive pulmonary disease) HLD (hyperlipidemia) HTN (hypertension) Surgical History History of kidney removal History of knee replacement History of nephrectomy Family History Other Family history of lung cancer Social History (Updated 03/29/25 @ 09:18 by Kacie Jon RN) Smoking Status: Current every day smoker tobacco type: cigarettes packs per day: 1 second hand exposure: Yes alcohol intake: never substance use type: denies use current occupational status: employed Travel in the last 8 weeks?: None housing: house current occupation: [employer] current occupational exposures/hazards: No caffeine: Yes Have you lived/traveled outside US in past 30 days?: No Contact w/someone who lives/traveled outside US past 30 days?: No Exposure to someone with infectious disease in past 14 days?: No Do you have a fever (greater than 100.4 F or 38 C)?: No Have you tested positive for COVID-19?: No Exposed to someone with COVID-19 in past 14 days?: No Do you have a sore throat?: No Do you have a cough?: No Do you have any weakness?: No Are you experiencing any nausea/vomitting?: No Do you have any diarrhea?: No Are you experiencing any unusual bleeding?: No Do you have any muscle aches/pain?: No Do you have any abdominal pain?: No Are you experiencing loss of taste or smell?: No [facility] Anesthesia Checklist Patient Identification Patient Identification: Arm Band and Verbal (Name & ) Structural Data Admitted From: Home Planned Operative Procedure/s: Laparoscopic ventral hernia repair, possible open Consent for Planned Operative Procedure(s) Verified: Yes Verified Documents: Surgical Consent NPO Status Verified Time NPO: 00:00 Chart Verification Results Verified: ECG Additional verifications Anesthesia Reactions: No Hx Blood Transfusions: No Blood Transfusion Reaction: No Airway Assessment Mallampati Score:: Class II C-Spine Mobility Assessed: Yes TMJ Mobility Assessed: Yes Dentition: Good Dentition (Few missing teeth, none loose) Neurological Assessment Level of Consciousness: Awake, Alert and Appropriate Hx Seizures: No Numbness or tingling in extremities: No Anesthesia Plan Anesthesia Risk discussed: Yes Anesthesia Plan: Verified ASA Class: II Anesthesia Type: General
[2025-03-29] MEDS: LIDOCAINE 1% 20ML MDV 20 ML (10:17)
--- NOTE | 2025-03-29 12:34 | P.OP_ITS ---
Date of procedure: 03/29/25 Pre-op Diagnosis:: Incisional hernia Post-op Diagnosis:: Same Procedure performed:: Laparoscopic repair of incisional hernia with placement of 15.2 cm Bard Ventralex circular mesh Surgeon:: Shan Hill MD TERRITORY MANAGER GENERAL SALES:: Francisco Lemons Anesthesia: GETA Estimated blood loss (mL): 30 Clinical Note:: Patient is a 64-year-old male who had been referred by [facility] for incisional hernia and initially seen in the office on 02/11/2025. He had undergone hand-assisted laparoscopic nephrectomy about 6 months ago at [facility]. Several months later he had noticed a bulge at the left upper abdominal incision site. After his initial consultation he had what appeared to be a moderately large incisional hernia. I had him undergo CT scan which revealed left paramidline abdominal wall hernia containing transverse colon without obstruction. Inspection of the images revealed about an 8 cm longitudinal incisional hernia containing transverse colon. The options were discussed with the patient. He did wish to pursue surgery. Plan was for an attempt at laparoscopic repair with mesh placement. Given the proximity and possible involvement of transverse colon I had him undergo mechanical bowel prep. I also explained to him that given bowel involvement and size of the hernia he could require admission postoperatively. Patient was also informed of the possibility of damage to bowel and need for additional open surgery. Understood and agreed to proceed to for laparoscopic possibly open incisional hernia repair. . Operative findings:: He had a widely open moderately large incisional hernia defect containing omentum and transverse colon which was densely adherent within the hernia sac. Operative note:: Consent was obtained patient was taken to the operating room. He was given preoperative intravenous antibiotics. In the operating room he was placed in a supine position. General anesthesia was induced via endotracheal tube. Alaniz catheter was placed. Abdomen was prepped and draped in the standard surgical fashion. Subumbilical skin incision was made and while performing abdominal wall lift Veress needle was inserted. CO2 pneumoperitoneum was achieved to 15 mmHg. 5 mm optical trocar was inserted at the umbilicus. Intraperitoneal contents were visualized. At the site of the hernia there were some extensive adhesions. He ultimately required placement of right lower quadrant 5 mm trocar and right upper quadrant 12 mm trocar. Using meticulous careful dissection with mostly blunt dissection and some use of ultrasonic robotic berta and limited Metzenbaum dissection the hernia contents were ultimately able to be dissected free from the adhesions within the hernia sac and reduced. The transverse colon appeared to be without injury. Additional adhesions were taken down to allow for mesh placement. Boundaries of the defect were marked with a skin marker with the aid of a 22-gauge spinal needle to determine the edges of the fascia. Skin was then marked for planned placement of mesh with at least 3-1/2 cm circumferential overlap. This required approximately 15 cm circular mesh. 15.2 cm Bard composix LP circular mesh was rolled and inserted through the 12 mm trocar site. The positioning system insufflation tubing was brought through a tiny 1 mm incision centrally over the mesh with the suture passer. Positioning system balloon was inflated to position the mesh over the defect. It was secured with several fixation tacks using the OPTi fix device. The positioning system balloon was then removed. Mesh was then secured around its periphery with the OPTi fix device. Several additional tacks were placed more centrally. Repair appeared adequate and hemostatic. There was good coverage. There was some minor oozing from a venous branch to the omentum which was dissected free and this was cauterized with ultrasonic robotic berta for good hemostasis. Limited irrigation and suctioning was performed. Trocars were then removed and CO2 pneumoperitoneum was evacuated. Fascia at the 12 mm trocar site was attempted to be closed primarily but due to the body habitus this was not feasible. Therefore CO2 pneumoperitoneum was reestablished as the 5 mm trocar was reinserted at the umbilicus. 12 mm trocar site was then closed with the laparoscopic neoclose device. CO2 pneumoperitoneum was reevacuated. Trocars were removed. Skin incisions were closed with 4-0 Monocryl in a subcuticular fashion. Right lower quadrant 5 mm trocar site was closed with a 5-0 plain gut horizontal mattress suture as well. Steri-Strips and dressings were applied. Due to the large size and colon involvement within the hernia defect with prolonged dissection involving bowel plan will be for admission overnight for observation for pain control, observation of ileus, and continuation of IV antibiotics. Condition: stable Disposition: PACU Complications:: None immediately apparent
--- NOTE | 2025-03-29 12:38 | EXP.ANES.I ---
[facility] Anesthesia Record Part I Anesthesia Record I Intake, IV Amount: 1,100 Hydration: Adequate Estimated blood loss (mL): 0 Urine output (mL): 100 Blood Products used (#): none Blood Pressure: 150/95 SaO2: 95 Pulse Rate: 91 Airway Patency: Patent Respiratory Rate: 16 Temperature: 97.0 F Patient is:: Awake, Drowsy and Stable Stable to PACU at:: 12:36
[2025-03-29] MEDS: HYDROMORPHONE 2MG/ML SYRINGE 0.5 MG IV ×2 (12:55→13:00)
--- NOTE | 2025-03-29 14:10 | HMH.PHAINT1 ---
Pharmacy Intervention Comments: MEDICATION RECONCILIATION COMPLETED ON PATIENT USING EXTERNAL FILL HISTORY FROM PHARMACY. -BRANDEN UMANZOR, DALED
[2025-03-29 14:14] LABS: Microscopic,Cath URINE MICROSCOPIC (MICROSCOPIC)
[2025-03-29 14:17] LABS: Appearance,Urine/Cath CLEAR (Clear); Bilirubin,Cath Negative (Negative); Blood, Urine/Cath Negative (Negative); Color,Urine/Cath YELLOW (Yellow); Glucose,Urine/Cath (UA) Negative (Negative); Ketones,Urine/Cath Negative (Negative); Leukocyte Esterase,Cath Negative (Negative); Nitrate,Cath Negative (Negative); PH,Urine/Cath 5.5 (5.0-8.5); Protein,Urine/Cath 1+ (Negative); Specific Gravity, Urine/Cath >= 1.030 (1.005-1.030); Urobilinogen,Cath 0.2 EU/dl (0.2)
[2025-03-29 14:42] LABS: Bacteria,Urine/Cath TRACE /lpf; Renal Epithelial Cells,Ur/Cath Occasional #/lpf (0); WBC,Urine/Cath Occasional #/hpf (0-3)
[2025-03-29] MEDS: MORPHINE 2MG/ML SYRINGE 2 MG IV (16:09)
--- NOTE | 2025-03-29 20:40 | PC.NURSE ---
spoke with MD Leigh regional manager for [facility] regarding medications that patient is asking for; patient asking for cough medication, night time home medications. MD Leigh stated narcotics will cover the cough, home medications atorvastatin and montelukast ok to restart but no to restart ambien and nabumetone due to surgery today. updated patient about conversation with MD Leigh, patient stated I don't want any of them then .
[2025-03-29] MEDS: LACTATED RINGERS 1000ML 1,000 ML 100 ML IV (20:49)
[2025-03-29] MEDS: METRONIDAZ/SOD CHL 500 MG/100 ML PIGGYBACK 100 MG IV (20:50)
[2025-03-29] MEDS: HYDROCODONE/APAP 5/325 MG TABLET 1 TAB PO (20:51)
[2025-03-30] VITALS (7 sets, daily range): BP systolic 120–147; BP diastolic 72–93; PULSE 63–80; RESP 16–18; TEMP 36.4–36.9; O2SAT 93–98; BMI 30.7
[2025-03-30] MEDS: METRONIDAZ/SOD CHL 500 MG/100 ML PIGGYBACK 100 MG IV ×3 (03:19→18:31)
[2025-03-30] MEDS: HYDROCODONE/APAP 5/325 MG TABLET 1 TAB PO (05:29)
[2025-03-30] MEDS: MORPHINE 2MG/ML SYRINGE 2 MG IV (07:27)
--- NOTE | 2025-03-30 07:32 | P.PN_ITS ---
Subjective Narrative: Patient complains of mainly abdominal soreness . No nausea. Not passing gas or having bowel movement. Has not ambulated. Exam Data for Last 24 hours Vital signs and Labs for Last 24 Hours: Temp Pulse Resp BP Pulse Ox O2 Del Method 97.9 F 66 18 140/82 94 L Room Air 03/30/25 04:00 03/30/25 04:00 03/30/25 04:00 03/30/25 04:00 03/30/25 04:00 03/30/25 06:54 Laboratory Results - last 24 hr 03/29/25 09:55: Urine Color Yellow, Urine Appearance Clear, Urine pH 5.5, Ur Specific [place] >= 1.030, Urine Protein 1+, Urine Glucose (UA) Negative, Urine Ketones Negative, Urine Blood Negative, Urine Nitrate Negative, Urine Bilirubin Negative, Urine Urobilinogen 0.2, Ur Leukocyte Esterase Negative, Urine RBC None, Urine WBC Occasional, Ur Squamous Epith Cells 3-5, Ur Renal Epithelial Cell Occasional, Urine Bacteria Trace I & O for Last 24 hours: Intake & Output 03/27/25 03/28/25 03/29/25 03/30/25 11:59 11:59 11:59 11:59 Intake Total 1740 / 1740 Output Total 800 / 800 Balance 940 / 940 Weight 205 lb 207 lb 7.773 oz *Routine Abdominal Exam Abdominal: Present distended Comments: Abdomen is appreciably distended consistent with significant ileus. Trocar sites intact. No evidence of any hernia recurrence. Progress Note: A&P Assessment and Plan Assessment and Plan for All Diagnoses:: Scheduled Toradol for pain. Ambulate. Limit to clear liquids at this time due to findings consistent with significant ileus.
[2025-03-30 08:12] LABS: Hematocrit 38.0 % (42.0-52.0); Hemoglobin 13.0 g/dL (14.1-18.0); Immature Granulocytes % 0.4 %; Mean Corpuscular HGB Conc 34.2 g/dL (31.8-35.4); Mean Corpuscular Hemoglobin 32.5 pg (27.0-31.2); Mean Corpuscular Volume 95.0 fl (80-94); Nucleated Red Blood Cells % 0 %; Platelet Count 233 K/mm3 (142-424); Red Blood Count 4.00 M/mm3 (4.60-6.20); Red Cell Distribution Width-SD 45.8 fL; White Blood Count 13.5 K/mm3 (4.8-10.8)
[2025-03-30 08:43] LABS: Chloride 109 mmol/L (98-107); Potassium 3.8 mmoL/L (3.5-5.1); Sodium 139 mmol/L (136-145)
[2025-03-30 08:46] LABS: Anion Gap 14.8 mEq/L (5-15); Blood Urea Nitrogen 18 mg/dl (9-20); Carbon Dioxide 19 mmol/L (22.0-30.0); Creatinine Clearance Estimated 76 mL/min (50-200); Creatinine,Serum 1.30 mg/dl (0.66-1.25); Estimated Glomerular Filt Rate 56 ml/min (>60); GFR (African American) 67 ML/MIN (>60)
[2025-03-30 08:47] LABS: Calcium 8.3 mg/dl (8.4-10.2); Glucose 153 mg/dl (74-100)
[2025-03-30] MEDS: BENZONATATE 100MG CAPSULE 200 MG PO ×3 (09:10→21:10)
[2025-03-30] MEDS: KETOROLAC 30MG/ML VIAL 15 MG IV ×3 (09:10→21:10)
[2025-03-30] MEDS: GUAIFENESIN/DEXTROMETHORPHAN 200MG/20MG 10ML UDC 10 ML PO (10:33)
--- NOTE | 2025-03-30 11:40 | P.PNANES_ITS ---
[facility] Anesthesia Record Part II Anesthesia Record Part II Discharge Time: 13:35 Destination: Medical Surgical Department PACU nurse assessment reviewed?: Yes Patient Condition:: Good Anesthesia Complications:: None Swallowing reflex intact?: Yes Airway Patency: Patent Cyanosis?: No Blood Pressure: 146/93 SaO2: 97 Respiratory Rate: 16 Pulse Rate: 80 Temperature: 97.8 F Mental Status: Alert & Oriented Pain level:: 2 Nausea and/or vomitting:: None Intake, IV Amount: 0 Hydration: Adequate
[2025-03-30] MEDS: LACTATED RINGERS 1000ML 1,000 ML 100 ML IV (18:32)
[2025-03-31] VITALS: BP 140/78; PULSE 64; RESP 16; TEMP 36.9; O2SAT 95
[2025-03-31] MEDS: IPRATROPIUM/ALBUTEROL 3 ML NEB IH (00:03)
[2025-03-31 00:04] VITALS: PULSE 69
[2025-03-31 00:09] VITALS: PULSE 74
[2025-03-31] MEDS: KETOROLAC 30MG/ML VIAL 15 MG IV ×2 (03:13→09:11)
[2025-03-31] MEDS: METRONIDAZ/SOD CHL 500 MG/100 ML PIGGYBACK 100 MG IV (03:14)
[2025-03-31 04:00] VITALS: BP 133/76; PULSE 72; RESP 16; TEMP 37.1; O2SAT 91; BMI 31.1
--- NOTE | 2025-03-31 06:46 | PC.NURSE ---
PT is A&OX4, On my assessment he has both inspiratory and expository wheezing. Called Dr Wu last night he ordered for his fluids to be D/Beny. Also DR Wu Ordered Duonebs Q6 prn Wheezing. LACY KIRAN RN
[2025-03-31 08:00] VITALS: BP 137/85; PULSE 71; RESP 18; TEMP 36.7; O2SAT 95
--- NOTE | 2025-03-31 08:14 | EXP.SURG.PN ---
Subjective Patient reports: no new complaints, tolerating liquids well, flatus and no bowel movement Narrative: Nursing concerned about increased wheezing overnight. Primary care service orders overnight noted. The patient states that he has chronic breathing problems and that he is close to normal . He does report some increased shortness of air/wheezing over the past few months and believes he needs to see Dr. Tanner again pretty soon in the office . The patient's spouse/significant other is hopeful that he can stay at least tonight . Exam Data for Last 24 hours Vital signs and Labs for Last 24 Hours: Temp Pulse Resp BP Pulse Ox O2 Del Method 98.7 F 72 16 133/76 91 L Room Air 03/31/25 04:00 03/31/25 04:00 03/31/25 04:00 03/31/25 04:00 03/31/25 04:00 03/31/25 05:00 Laboratory Results - last 24 hr 03/30/25 07:50: Sodium 139, Potassium 3.8, Chloride 109 H, Carbon Dioxide 19 L, Anion Gap 14.8, BUN 18, Creatinine 1.30 H, Estimated Creat Clear 76, Estimated GFR 56 L, Est GFR ( Amer) 67, Glucose 153 H, Calcium 8.3 L I & O for Last 24 hours: Intake & Output 03/28/25 03/29/25 03/30/25 03/31/25 11:59 11:59 11:59 11:59 Intake Total 3440 / 3440 1220 / 1220 Output Total 800 / 800 0 / 0 Balance 2640 / 2640 1220 / 1220 Weight 205 lb 207 lb 7.773 oz 210 lb Constitutional Constitutional: no acute distress *Routine Respiratory Exam Respiratory: Absent respiratory distress *Routine Cardiovascular Exam Cardiovascular: Absent tachycardia *Routine Abdominal Exam Abdominal: Present soft and distended Progress Note: A&P Assessment and plan (1) Incisional hernia: Status: Acute Assessment and plan: Overall, doing well status post laparoscopic repair (2) Postoperative ileus: Status: Acute Assessment and plan: Flatus but no bowel movement noted. Patient is seemingly tolerating clear liquids. Cautiously advance to full liquid diet without carbonation (3) COPD (chronic obstructive pulmonary disease): Status: Chronic Assessment and plan: Overall management as per primary service
--- NOTE | 2025-03-31 08:45 | P.PN_ITS ---
Subjective *Date: 03/31/25 *Time: 08:45 Interval history: Patient states cough has improved, he has been up walking in the [place]. Medical Exam Vital signs and Labs for Last 24 Hours: Vital Signs Temp Pulse Pulse Resp BP Pulse Ox O2 Del Method 03/31/25 08:00 98.0 F 71 18 137/85 95 Room Air 03/31/25 05:00 Room Air 03/31/25 04:00 98.7 F 72 16 133/76 91 L Room Air 03/31/25 03:00 Room Air 03/31/25 00:09 74 03/31/25 00:04 69 03/31/25 00:00 98.4 F 64 16 140/78 95 Room Air 03/30/25 23:00 Room Air 03/30/25 21:00 Room Air 03/30/25 20:00 Room Air 03/30/25 20:00 98.4 F 64 17 141/76 H 98 Room Air 03/30/25 19:00 Room Air 03/30/25 17:00 Room Air 03/30/25 16:00 98.2 F 63 18 136/76 97 Room Air 03/30/25 15:00 Room Air 03/30/25 12:58 Room Air 03/30/25 11:59 97.5 F L 69 18 120/72 96 Room Air 03/30/25 11:41 16 03/30/25 11:10 Room Air 03/30/25 09:20 Room Air Intake and Output 03/30/25 03/31/25 03/31/25 23:59 07:59 15:59 Intake Total 640 / 3360 Output Total 0 / 0 0 / 0 0 / 0 Balance 640 / 3360 0 / 0 0 / 0 Intake: Intake, Oral Amount 540 / 1960 Intake, Total IV Amount 100 / 1400 Metronidaz/Sod Chl 500 mg In 100 / 300 100 ml @ 100 mls/hr IV Q8H [facility] Rx#:[id number] Output: Output, Urine Amount 0 / 0 0 / 0 0 / 0 Other: Number of Unmeasured Voids 1 1 1 Weight 210 lb Patient Weight 03/31/25 23:59 Weight 210 lb Laboratory Results - last 24 hr 03/30/25 07:50: Sodium 139, Potassium 3.8, Chloride 109 H, Carbon Dioxide 19 L, Anion Gap 14.8, BUN 18, Creatinine 1.30 H, Estimated Creat Clear 76, Estimated GFR 56 L, Est GFR ( Amer) 67, Glucose 153 H, Calcium 8.3 L I & O for Labs for Last 24 Hours: Intake & Output 03/28/25 03/29/25 03/30/25 03/31/25 23:59 23:59 23:59 23:59 Intake Total 1300 / 1540 3360 / 3360 Output Total 800 / 800 0 / 0 0 / 0 Balance 500 / 740 3360 / 3360 0 / 0 Weight 205 lb 207 lb 7.773 oz 210 lb Constitutional: Absent no acute distress Respiratory: Present CTA bilaterally Cardiac: Present Reg Rate and Rhythm Assessment and Plan *Assessment and plan (1) Incisional hernia: Status: Acute Category: Medical Code(s): K43.2 - Incisional hernia without obstruction or gangrene (2) Postoperative ileus: Status: Acute Category: Medical Code(s): K91.89 - Other postprocedural complications and disorders of digestive system; K56.7 - Ileus, unspecified (3) COPD (chronic obstructive pulmonary disease): Status: Chronic Category: Medical Code(s): J44.9 - Chronic obstructive pulmonary disease, unspecified (4) HTN (hypertension): Status: Chronic Category: Medical Code(s): I10 - Essential (primary) hypertension (5) Cough: Status: Acute Category: Medical Code(s): R05.9 - Cough, unspecified Plan OK to discharge home from my standpoint. Would have patient continue Robitussin DM OTC and also provide an Rx for Tessalon 200 mg to be taken every 8 hours as needed for his cough. He uses [facility] pharmacy in [place]. I would like to see him back in the office within 2 weeks.
[2025-03-31] MEDS: BENZONATATE 100MG CAPSULE 200 MG PO ×2 (09:06→13:54)
[2025-03-31 12:00] VITALS: BP 116/75; PULSE 64; RESP 18; TEMP 36.7; O2SAT 95
--- OUTSIDE RECORDS SUMMARY | 2025-03-31 12:35 | XMS_ITS | Patient Health Record ---
[facility] [address] [place] [id number] Care Team Providers Care Guide Foreign Tour Name Role Phone Abe Tannerian Primary Care Provider Bailey Ahmadi Unavailable [phone] Allergies No Known Allergies Results Component Value Reference Range Notes Glucose (In-House) Reviewed date:05/29/2024 01:25:32 PM Interpretation:108 Performing Lab: Notes/Report: 108 blood glucose 108 74 - 106 mg/dL Glycohemoglobin A1c (in hous e) Reviewed date:05/29/2024 01:26:29 PM Interpretation:5.8, normal Performing Lab: Notes/Report: 5.8, normal glycohemoglobin 5.8% 5 - 6.5 % CT Scan : Chest, low dose Reviewed date:06/22/2024 09:42:41 AM Interpretation:consider renal mass protocol CT Performing Lab: Notes/Report: consider renal mass protocol CT Estimated Average Glucose Reviewed date:12/01/2024 04:46:43 PM Interpretation:125 Performing Lab: Notes/Report: Test performed by [facility] [employer] [facility] [employer] [facility] , [address], [place] [address] Renaldo Schwab MD, Piping Designer CLIA: [id number] Estimated Average Glucose (eAG) 125 Estimated Average Glucose (eAG) is calculated using the equation eAG = (28.7 x HbA1c) - 46.7 based on the guidelines established by the ADA. If the patient has certain diseases including kidney disease, sickle cell anemia, thalassemia, or is taking medications such as dapsone, erythropoietin, or iron, eAG should not be evaluated. 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 Performing Lab: Notes/Report: 2 left renal masses consistent with renal neoplasm H-BUN/CREAT Reviewed date:07/15/2024 11:24:42 AM Interpretation:Normal Performing Lab: Notes/Report: BUN 18 9-20 mg/dl CREATT 1.00 0.66-1.25 mg/dl GFRAA 91 >60 ML/MIN EGFR 75 >60 ml/min CBC Fingerstick (in house) Reviewed date:09/09/2024 04:22:02 [...] - 38 plat 207 100 - 400 P-Uric Acid Reviewed date:12/01/2024 04:46:43 PM Interpretation:Normal Performing Lab: Notes/Report: Test performed by [employer] [address] [place] [address] , [address], [place] [address] Renaldo Schwab MD, Piping Designer CLIA: [id number] Uric Acid 6.6 3.4-8.0 mg/dL P-Microalbumin/Creatinine, R andom Urine Sample Reviewed date:12/01/2024 04:46:43 PM Interpretation:a/c 75 Performing Lab: Notes/Report: Test performed by [facility] [address] [place] [address] [address], [address], [place] [address] Renaldo Schwab MD, Piping Designer CLIA: [id number] Albumin/Creatinine Ratio, Urine 75 0-30 ug/m g Microalbumin, Urine, Random 9.9 Creatinine, Urine 132.0 P-TSH reflex to FT4 Reviewed date:12/01/2024 04:46:43 PM Interpretation:Normal Performing Lab: Notes/Report: Test performed by [facility] [address] [place] [address] [address], [address], [place] [address] Renaldo Schwab MD, Piping Designer CLIA: [id number] TSH reflex to FT4 1.79 0.43-5.25 mU/L P-PSA Reviewed date:12/01/2024 04:46:43 PM Interpretation:Normal Performing Lab: Notes/Report: Test performed by [facility] [address] [place] [address] , [facility] [place] [address] Renaldo Schwab MD, Piping Designer CLIA: [id number] PSA 0.56 <4.00 ng/mL Please note this is an ultrasensitive PSA assay with a lower limit of detection of 0.014 ng/mL. This test is performed by the [employer] ECLIA methodology. Values obtained with different assay methods or kits cannot be directly compared. P-Lipid Panel Reviewed date:12/01/2024 04:46:42 PM Interpretation:trigs 178 Performing Lab: Notes/Report: Test performed by [employer] [address] , [place] [address] Renaldo Schwab MD, Piping Designer CLIA: [id number] Cholesterol 149 <200 mg/dL Triglycerides 178 <150 [...] Interpretation:6.0 Performing Lab: Notes/Report: Test performed by [facility] [address] [place] [address] [address] , [place] [address] Renaldo Schwab MD, Piping Designer CLIA: [id number] Hemoglobin A1C 6.0 <5.7 % The following HbA1c ranges recommended by the [place] Diabetes Association (ADA) may be used as an aid in the diagnosis of diabetes mellitus. HbA1c Suggested Diagnosis >=6.5% Diabetic 5.7% - 6.4% Pre-Diabetic <5.7% Non-Diabetic P-Comprehensive Metabolic Pa flaco (CMP) Reviewed date:12/01/2024 04:46:42 PM Interpretation:Cr 1.57, gfr 59 Performing Lab: Notes/Report: Test performed by [facility] [address] [place] [address] [address], [place] [address] Renaldo Schwab MD, Piping Designer CLIA: [id number] Sodium 140 135-145 mmol/L Potassium 4.4 3.5-5.3 [...] 0.6 <0.2-1.2 mg/dL A/G Ratio 1.9 1.1-2.5 Medications Medication SIG (Take, Route, Frequency, Duration) [...] tab(s) orally once a day 03/23/2011 Active Zolpidem Tartrate 10 MG 1 tablet at bedt zheng as needed Orally Once a day; Duration: 90 days 03/22/2025 Active CareTouch CPAP & BIPAP Hose 1 DIRECTED 10/18/19 Active CPAP SUPPLIES DIRECTED 10/10/2022 Act princess Contrave 8-90 MG as directed Orally O nce a day; Duration: 90 days 05/27/2024 Active Albuterol Sulfate HFA 108 (90 Base) MCG/ACT INHALE 2 PUFFS EVERY 6 HOURS NEEDED 30; Duration: 30 Active Aspirin 325 MG 1 tab(s) orally once a day 06/06/2015 Active Nabumetone 750 MG TAKE 2 TABLETS BY MO UTH EVERY DAY FOR 90 DAYS; Duration: 90 Active Immunizations Vaccine Route Administration Date Status Comme nts xFluzone Intradermal (18-64yrs)-trivalent ID Intradermal 05/10/2014 Administered Shingrix IM Intramuscular 05/27/2023 Administered Fluzone Quad (6months&older) IM Intramuscular 04/29/2017 Administered Fluzone Quad (6months&older) IM Intramuscular 05/16/2018 Administered Fluzone Quad (6months&older) IM Intramuscular 05/21/2019 Administered Fluzone Quad (6months&older) IM Intramuscular 05/30/2020 Administered Fluzone Quad (6months&older) IM Intramuscular 05/29/2021 Administered Fluzone Quad (6months&older) IM Intramuscular 05/28/2022 Administered Fluzone Quad (6months&older) IM Intramuscular 05/27/2023 Administered Fluzone Quad (6months&older) IM Intramuscular 05/27/2024 Administered COVID 19 Moderna Unknown 11/08/2020 Administered COVID 19 Moderna Unknown 12/09/2020 Administered Problems Problem Type SNOMED Code ICD Code Onset Dates Problem Status W/U Status Risk Notes Problem Vitamin D deficiency (84603945) Vitamin D deficiency NOS (268.9) Active confirmed Problem Insomnia (839198329) Insomnia (G47.00) Active confirmed Problem Essential hypertension (07752010) Essential hypertension (I10) Active confirmed Problem Body mass index 30+ - obesity (889931517) BMI 30.0-30.9,adult (Z68.30) Active confirmed Problem Impaired fasting glucose (782728447) Impaired fasting glucose (R73.01) Active confirmed Problem Vitamin D deficiency (85950455) Vitamin D deficiency, unspecified (E55.9) Active confirmed Problem Mixed hyperlipidemia (349648196) Mixed hyperlipidemia (E78.2) Active confirmed Problem Depressive disorder (06291609) Depressive disorder (F32.9) Active confirmed Problem Obstructive sleep apnea syndrome (88874765) Obstructive sleep apnea syndrome (G47.33) Active confirmed Problem Gout (34732813) Gout, unspecifie d cause, unspecified chronicity, unspecified site (M10.9) Active confirmed Problem Osteoarthritis of knee (855522586) Primary osteoarthritis of both knees (M17.0) Active confirmed Problem Hypersomnia (46120101) Hypersomnia (G47.10) Active confirmed Problem Tobacco user (015591052) Cigarette nicotine dependence without complication (F17.210) Active confirmed Problem Artificial knee joint present (744222462269) Status post right knee replacement (Z96.651) Active confirmed Problem Allergic rhinitis (24077560) Allergic rhinitis, unspecified allergic rhinitis trigger, unspecified rhinitis seasonality (J30.9) Active confirmed Problem Arthritis of right knee (1234370810724325 ) Arthritis of right knee (M17.11) Active confirmed Problem Obesity (408428502) Non morbid obesity (E66.9) Active confirmed Problem Arthritis of left knee (7668547452057424 ) Arthritis of left knee (M17.12) Active confirmed Problem Absent kidney (420209022) S/p nephrectomy (Z90.5) Active confirmed Vital Signs Heart Rate 87 /min 02/03/2025 A Blood pressure diastolic 80 mm Hg 02/03/2025 A Height 69 in 02/03/2025 A Blood pressure systolic 120 mm Hg 02/03/2025 A Weight 208.0 lbs 02/03/2025 A BMI 30.71 kg/m2 02/03/2025 A Encounters Encounter Location Date Provider Diagnosis [facility] [address] [place], [place] [id number] 04/09/2024 Silver Freeport [facility] [address] [place], [place] [id number] 06/12/2024 Silver Freeport [facility] [address] [place], [place] [id number] 06/22/2024 Silver Freeport 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 [facility] [address] [place], [place] [id number] 06/25/2024 Silver Freeport Insomnia G47.00 [facility] [address] [place] [id number] 06/29/2024 Silver Freeport Non morbid obesity E 66.9 [facility] [address] [place], [place] [id number] 07/03/2024 Silver Freeport Non morbid obesity E 66.9 [facility] [address] [place], [place] [id number] 07/16/2024 Silver Freeport 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 [facility] [address] [place] [id number] 07/28/2024 Silver Freep[place] [facility] [address] [place] [id number] 09/22/2024 Silver Freeport Insomnia G47.00 [facility] [address] [place] [id number] 11/26/2024 Silver Freeport [facility] [address] [place] [id number] 12/01/2024 Silver [place]ep[place] [facility] [address] [place], [place] [id number] 12/21/2024 Silver Freeport Insomnia G47.00 [facility] [address] [place], [place] [id number] 01/18/2025 Silver Freep[place] [facility] [address] [place], [place] [id number] 03/22/2025 Silver Freeport Insomnia G47.00 [facility] [address] [place], [place] [id number] 05/27/2024 Silver Freeport Essential hypertensi on I10 ; Mixed hyperlipidemia E78.2 ; Polyarthralgia M25.50 ; Impaired fasting glucose R73.01 ; Personal history of nicotine dependence Z87.891 ; Screening for lung cancer Z12.2 ; Non morbid obesity E66.9 and Encounter for immunization Z23 [facility] [address] [place], [place] [id number] 09/09/2024 Silver Freeport Acute URI J06.9 and S/p nephrectomy Z90.5 [facility] [address] [place], [place] [id number] 11/25/2024 Silver Freeport Essential hypertensi on I10 ; Mixed hyperlipidemia E78.2 ; Vitamin D deficiency, unspecified E55.9 ; Impaired fasting glucose R73.01 ; Gout, unspecified cause, unspecified chronicity, unspecified site M10.9 ; Prostate cancer screening Z12.5 ; S/p nephrectomy Z90.5 and BMI 30.0-30.9,adult Z68.30 [facility] [address] [place], [place] [id number] 02/03/2025 Bailey Crowdy Hernia K46.9 Assessments Encounter Date Diagnosis (ICD Code) Assessment Notes Treatment Notes Treatment Clinical Notes Section Notes 05/27/2024 Essential hypertension (ICD-10 - I10) 05/27/2024 Mixed hyperlipidemia (ICD-10 - E78.2) 06/22/2024 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) 06/25/2024 Insomnia (ICD-10 - G47.00) 07/16/2024 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) 09/09/2024 Acute URI (ICD-10 - J06.9) 09/09/2024 S/p nephrectomy (ICD-10 - Z90.5) 12/21/2024 Insomnia (ICD-10 - G47.00) 02/03/2025 Hernia (ICD-10 - K46.9) 03/22/2025 Insomnia (ICD-10 - G47.00) 11/25/2024 Essential hypertension (ICD-10 - I10) 09/22/2024 Insomnia (ICD-10 - G47.00) 07/03/2024 Non morbid obesity (ICD-10 - E66.9) 06/29/2024 Non morbid obesity (ICD-10 - E66.9) 11/25/2024 Mixed hyperlipidemia (ICD-10 - E78.2) 11/25/2024 Vitamin D deficiency, unspecified (ICD-10 - E55.9) 05/27/2024 Polyarthralgia (ICD-10 - M25.50) 05/27/2024 Impaired [...] [address], [place], [id number], Insurance Providers Payer Name Payer Address Payer Phone Subscriber Number Group Number Insured Name Patient Relationship to Insured Coverage Start Date Coverage End Date [employer] [address] [place] [address] [id number] Devin Figueroa Self - patient is [...]
--- NOTE | 2025-03-31 13:35 | EXP.DC.SUM ---
General Admission date:: 03/29/25 Discharge date: 03/31/25 HPI HPI HPI: Forwarded from office visit note dated March 02, 2025: Patient presents for follow-up after CT scan and urology appointment. He is a 64-year-old male referred by [facility] for hernia and seen in the office on 02/11/2025. He does not recall the referring provider. Apparently he underwent what appears to be hand-assisted laparoscopic nephrectomy about 6 months ago at [facility]. He is unsure of the indications or final pathology. He states that about 2 or 3 months ago he noticed a bulge at the left upper abdominal incision site. It appears as though his urologist is Dr. David Castellon. I had him undergo CT scan which reveals left paramidline abdominal wall hernia containing transverse colon without obstruction. Hospital Course Hospital Course Hospital Course: The patient underwent laparoscopic ventral incisional hernia repair (Dr. Hill) on March 29, 2025. Please see operative report for details. Postoperatively, he progressed fairly well. He developed a postoperative ileus requiring slow advancement of his diet. His primary care provider (Dr. Tanner) was consulted for overall medical management secondary to comorbid conditions of COPD and hypertension. Recent change in chronic cough and mild increased wheezing specifically evaluated/managed. By the afternoon postoperative day 2 the patient was deemed appropriate for discharge. At the time of discharge she was ambulating without difficulty, tolerating a full liquid diet, and showing good evidence of bowel function return (significant flatus). Exam Data for Last 24 hours Vital signs and Labs for Last 24 Hours: Temp Pulse Resp BP Pulse Ox O2 Del Method 98.0 F 64 18 116/75 95 Room Air 03/31/25 12:00 03/31/25 12:00 03/31/25 12:00 03/31/25 12:00 03/31/25 12:03/31/25 12:00 I & O for Last 24 hours: Intake & Output 03/29/25 03/30/25 03/31/25 04/01/25 11:59 11:59 11:59 11:59 Intake Total 3440 / 3440 1680 / 1680 1000 / 1000 Output Total 800 / 800 0 / 150 150 / 150 Balance 2640 / 2640 1680 / 1530 850 / 850 Weight 205 lb 207 lb 7.773 oz 210 lb Constitutional Constitutional: no acute distress *Routine HEENT Exam Head: Present normocephalic Eye: Present EOMI ENT: Present mucous membranes moist *Routine Neck Exam Neck: Present full ROM Routine Chest/Breast/Axilla Exam Chest wall: Absent tenderness *Routine Respiratory Exam Respiratory: Absent respiratory distress *Routine Cardiovascular Exam Cardiovascular: Absent tachycardia *Routine Abdominal Exam Abdominal: Present soft *Routine Rectal Exam Patient deferred: visual exam *Routine Exam Patient deferred: perineal exam *Routine Extremities Exam Extremities: Present full ROM Routine Back/Spine/Pelvis Exam Back/Spine: Present full ROM *Routine Skin Exam Skin: Absent erythema *Routine Neurological Exam Neurological: Present alert Routine Psychiatric Exam Psychiatric: Present normal affect DS: Diagnosis Discharge Diagnosis (1) Incisional hernia: Status: Acute Code(s): K43.2 - Incisional hernia without obstruction or gangrene (2) Postoperative ileus: Status: Acute Code(s): K91.89 - Other postprocedural complications and disorders of digestive system; K56.7 - Ileus, unspecified (3) COPD (chronic obstructive pulmonary disease): Status: Chronic Code(s): J44.9 - Chronic obstructive pulmonary disease, unspecified (4) HTN (hypertension): Status: Chronic Code(s): I10 - Essential (primary) hypertension (5) Cough: Status: Acute Code(s): R05.9 - Cough, unspecified Meds Home Medications and Allergies Home Medications ?Medication ?Instructions ?Recorded ?Confirmed ?Type nabumetone 750 mg tablet 1,500 mg PO DAILY 02/11/25 03/29/25 History loratadine 10 mg tablet 10 mg PO DAILY 03/19/25 03/29/25 History amlodipine 10 mg tablet 10 mg PO DAILY 03/29/25 03/29/25 History atorvastatin 40 mg tablet 40 mg PO HS 03/29/25 03/29/25 History montelukast 10 mg tablet 10 mg PO HS 03/29/25 03/29/25 History zolpidem 10 mg tablet 10 mg PO HSP PRN Insomnia 03/29/25 03/29/25 History benzonatate 200 mg capsule 200 mg PO TID PRN cough #30 caps 03/31/25 Rx dextromethorphan-guaifenesin 5 20 ml PO Q8H #500 mL 03/31/25 Rx mg-100 mg/5 mL oral liquid (Robitussin Honey Max DM) hydrocodone 5 mg-acetaminophen 325 1 tab PO Q6H PRN post-op pain #7 03/31/25 Rx mg tablet tabs New Prescriptions to Start Prescriptions: benzonatate Suman Chamberlain dextromethorphan-guaifenesin [Robitussin Honey Max DM] Suman Chamberlain hydrocodone-acetaminophen Suman Chamberlain Allergies Allergy/AdvReac Type Severity Reaction Status Date / Time No Known Allergies Allergy Verified 03/29/25 09:31 Discharge Plan Disposition Patient Disposition: Home, Self-Care Discharge Order Discharge Orders: Discharge Order (Routine); Ordered 03/31/25 Ordered By: Suman Chamberlain Follow up Plan Follow up with: Silver Tanner MD [Primary Care Provider, Medical] - 04/14/25 10:15 am Shan Hill MD [Staff Physician, General Surgery] - 04/08/25 9:45 am Prescriptions/Medication Reconciliation: New dextromethorphan-guaifenesin [Robitussin Honey Max DM] 5-100 mg/5 mL liquid 20 ml PO Q8H Qty: 500 1RF benzonatate 200 mg capsule 200 mg PO TID PRN (Reason: cough) Qty: 30 1RF hydrocodone-acetaminophen 5-325 mg tablet 1 tab PO Q6H PRN (Reason: post-op pain) Qty: 7 0RF Continued nabumetone 750 mg tablet 1,500 mg PO DAILY Patient Comments: TAKE 2 TABLETS BY MOUTH EVERY DAY FOR 90 DAYS atorvastatin 40 mg tablet 40 mg PO HS Patient Comments: TAKE 1 TABLET BY MOUTH DAILY AT BEDTIME amlodipine 10 mg tablet 10 mg PO DAILY Patient Comments: TAKE 1 TABLET BY MOUTH EVERY DAY montelukast 10 mg tablet 10 mg PO HS Patient Comments: TAKE 1 TABLET BY MOUTH EVERY DAY zolpidem 10 mg tablet 10 mg PO HSP PRN (Reason: Insomnia) Patient Comments: TAKE 1 TABLET BY MOUTH EVERY DAY AT BEDTIME NEEDED loratadine 10 mg Tablet 10 mg PO DAILY Problem Reconciliation Problems Reviewed?: Yes Patient Discharge Instructions ACTIVITY: Ambulate as tolerated and No heavy lifting DIET: advance to your usual diet Patient Instructions: DI for Surgical Site Infection, DI for Ventral Hernia, Stop Light Infection Print Language: French Providers Primary Care Provider: Silver Tanner Admit Provider: Shan Hill Attending Provider: Shan Hill
--- NOTE | 2025-04-01 10:35 | SW/DCPLANNER ---
Spoke with patient on the phone. Patient stated that he is doing well. Patient stated that he is aware of his upcoming appointments. Patient stated that he was able to get his new medicine picked up from [facility]. Patient stated that he was wondering when he can eat regular foods again. I stated to patient that his paper work stated to advance to his regular diet. Patient stated that he has no other concerns or questions at this time. Loretta Monroe
== END 2025-03-31 14:42 | disposition home or self-care (01) | DRG 354 ==
LOC: 2ND 14:02
PROVIDERS: Admitting Provider Surgery; PCP Family Medicine; Visit Provider Surgery
PROC: 0WQF4ZZ Repair Abdominal Wall, Percutaneous Endoscopic Approach (ICD-10-PCS; principal; 2025-03-29 10:30)
DX: K43.2 Incisional hernia without obstruction or gangrene (principal); K56.7 Ileus, unspecified; K91.89 Other postprocedural complications and disorders of digestive system; J44.9 Chronic obstructive pulmonary disease, unspecified; I10 Essential (primary) hypertension; E78.5 Hyperlipidemia, unspecified; F17.210 Nicotine dependence, cigarettes, uncomplicated; Y83.8 Other surgical procedures as the cause of abnormal reaction of the patient, or of later complication, without mention of misadventure at the time of the procedure; Z90.5 Acquired absence of kidney; Z79.899 Other long term (current) drug therapy
CPT/HCPCS: 36415; 51702; 80048; 81001; 85025; 94640; 96374; C1781; J0690; J1100; J1171; J1836; J1885; J2003; J2250; J2270; J2405; J2704; J2795; J3010; J7120

== ENCOUNTER 2025-04-19 09:42 | Outpatient (CLI) | payer BC, SELFPAY ==
[2025-04-19 10:45] VITALS: PULSE 61; PULSE 67
[2025-04-19] MEDS: ALBUTEROL 0.083% 2.5 MG/3 ML NEB IH (10:45)
== END 2025-04-19 23:59 | disposition home or self-care (01) ==
LOC: RT 09:42
PROVIDERS: PCP Family Medicine; Visit Provider Family Medicine
DX: R94.2 Abnormal results of pulmonary function studies (principal); R06.02 Shortness of breath; R05.3 Chronic cough
CPT/HCPCS: 94010; 94640; 94727; 94729

== ENCOUNTER 2025-05-04 06:52 | Outpatient (CLI) | payer BC, SELFPAY ==
--- OUTSIDE RECORDS SUMMARY | 2024-09-09 07:30 | XMS_ITS ---
Author Organization [facility] Address [address] [facility] [address] [place] [id number] Care Team Providers Care Med Aide Name Role Phone Silver Tanner Primary Care Provider [phone] Allergies No Known Allergies Results Component Value [...] Problem Status W/U Status Risk Notes Problem Absent kidney (071238895) S/p nephrectomy (Z90.5) Active confirmed Vital Signs Weight 206.2 lbs 09/09/2024 Blood pressure systolic 122 mm Hg 09/09/19 25 Blood pressure diastolic 82 mm Hg 025 Heart Rate 94 /min 09/09/2024 Height 69 in 09/09/2024 BMI 30.45 kg/m2 09/09/2024 Encounters Encounter Location Date Provider Diagnosis [facility] [address] [phone] 09/09/2024 Silver Tanner Acute URI J06.9 and [...] [address], [address], [place], [place], [id number], Progress Notes * Devin FIGUEROADOB:1960 (64 yo M)Acc No.[id number]:09/09/2024 Progress Notes Patient: Devin BROWNE Provider: Ronnie Tanner M.D. :1960 A ge:64 Y S ex:Male Date:09/09/2024 Address:[address] [place] [address], [place], [id number] Subjective: * Chief Complaints: * 1 . [...] yes. Marital Status: . Occupation: [employer] in [place], [place]. Past smoking status: yes, PPD:1 , [...] * Procedure Codes: 9 4760 [place], [address] CAPILLARY BLOOD DRAW, 90737 CBC WITH AUTO DIFF * Follow Up: v ia phone to report progress * Images: Billing Information: * Visit Code: 81104 Office Visit, Est Pt., Level 3. * Procedure Codes: [address] [place]. [address] CAPILLARY BLOOD DRAW. 33075 CBC WITH AUTO DIFF. * Electronic signature of Maribell Tanner MD on 05/04/2025 at 06:55 AM EDT Sign off status: Pending * Provider: Ronnie Tanner M.D. Date: 0 09/09/2024 Generated for Madalyn hernandez/Salma/eTransmitting on: 0 05/04/2025 06:55 AM EDT History and Physical Notes * [...]
--- OUTSIDE RECORDS SUMMARY | 2024-11-25 12:15 | XMS_ITS ---
Author Organization [facility] Address [address] [facility] [address] [place], [place] [id number] Care Team Providers Care Integrated Circuit Ic Layout Designer Name Role Phone Silver Tanner Primary Care Provider [phone] Allergies No Known Allergies Results Component Value Reference Range Notes P-Comprehensive Metabolic Pa flaco (CMP) Reviewed date:12/01/2024 04:46:42 PM Interpretation:Cr 1.57, gfr 59 Performing Lab: Notes/Report: Test performed by [facility] [address] [place] [address] , [address], [place] [address] Renaldo Schwab MD, Sequins Spooler CLIA: [id number] Sodium 140 135-145 mmol/L Potassium 4.4 3.5-5.3 [...] Interpretation:6.0 Performing Lab: Notes/Report: Test performed by [facility] [address] [place] [address] [address]eria C, [place] [address] Renaldo Schwab MD, [employer] Sp[employer] CLIA: [id number] Hemoglobin A1C 6.0 <5.7 % The following HbA1c ranges recommended by the [place] Diabetes Association (ADA) may be used as an aid in the diagnosis of diabetes mellitus. HbA1c Suggested Diagnosis >=6.5% Diabetic 5.7% - 6.4% Pre-Diabetic <5.7% Non-Diabetic P-Lipid Panel Reviewed date:12/01/2024 04:46:42 PM Interpretation:trigs 178 Performing Lab: Notes/Report: Test performed by [facility] [address] [place], [place] [address] Melissa [address]eria [address], [place] [address] Renaldo Schwab MD, Sequins Spooler CLIA: [id number] Cholesterol 149 <200 mg/dL Triglycerides 178 <150 [...] Interpretation:Normal Performing Lab: Notes/Report: Test performed by [facility] , [address], [place] [address] Renaldo Schwab MD, Sequins Spooler CLIA: [id number] PSA 0.56 <4.00 ng/mL Please note this is an ultrasensitive PSA assay with a lower limit of detection of 0.014 ng/mL. This test is performed by the [employer] ECLIA methodology. Values obtained with different assay methods or kits cannot be directly compared. P-TSH reflex to FT4 Reviewed date:12/01/2024 04:46:43 PM Interpretation:Normal Performing Lab: Notes/Report: Test performed by [facility] , [address], [place] [address] Renaldo Schwab MD, Sequins Spooler CLIA: [id number] TSH reflex to FT4 1.79 0.43-5.25 mU/L P-Microalbumin/Creatinine, R andom Urine Sample Reviewed date:12/01/2024 04:46:43 PM Interpretation:a/c 75 Performing Lab: Notes/Report: Test performed by [facility] , [address], [place] [address] Renaldo Schwab MD, Sequins Spooler CLIA: [id number] Albumin/Creatinine Ratio, Urine 75 0-30 ug/mg Microalbumin, Urine, Random 9.9 Creatinine, Urine 132.0 P-Uric Acid Reviewed date:12/01/2024 04:46:43 PM Interpretation:Normal Performing Lab: Notes/Report: Test performed by [facility] , [address], [place] [address] Renaldo Schwab MD, Sequins Spooler CLIA: [id number] Uric Acid 6.6 3.4-8.0 mg/dL Estimated Average Glucose Reviewed date:12/01/2024 04:46:43 PM Interpretation:125 Performing Lab: Notes/Report: Test performed by [facility] [address] [place] [address] , [address], [place] [address] Renaldo Schwab MD, Sequins Spooler CLIA: [id number] Estimated Average Glucose (eAG) 125 Estimated Average [...] Status Risk Notes Problem Vitamin D deficiency (91824173) Vitamin D deficiency, unspecified (E55.9) Active confirmed Problem Body mass index 30+ - obesity (830178025) BMI 30.0-30.9,adult (Z68.30) Active confirmed Vital Signs Weight 204.4 lbs 11/25/2024 Blood pressure systolic 130 mm Hg 11/26/19 25 Blood pressure diastolic 84 mm Hg 025 Heart Rate 82 /min 11/25/2024 Height 69 in 11/25/2024 BMI 30.18 kg/m2 11/25/2024 Encounters Encounter Location Date Provider Diagnosis [facility] [address] [facility] [address] [facility] [address] [place] Ol[place] [id number] 11/25/2024 Silver Tanner Essential hypertensi on I10 [...] briggs, 05/26/2025 04:15:00 PM, [address] [facility] 36 [facility], [address], [place], [place], [id number], Progress Notes * Devin GAGEDOB:1960 (64 yo M)Acc No.[id number]:11/25/2024 Progress Notes Patient: Devin BROWNE Provider: Ronnie Tanner M.D. :1960 A ge:64 Y S ex:Male Date:11/25/2024 Address:[address] [place] [address], [id number] Subjective: * Chief Complaints: * 1 . [...] yes. Marital Status: . 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 B [place] 30.0-30.9,adult - Z68.30 ? Plan: * Treatment: [...] to FT4 1.79 0.43-5.25 - mU/L * EddieKayley 12/01/2024 04: 46:36 PM > See phone [...] A1C 6.0 H <5.7 - % * EddieKayley nathan 12/01/2024 04: 46:36 PM > See phone encounter 4.?Gout, unspecified cause, unspecified chronicity, unspecified site?LAB: P-Uric Acid (Collection Date & Time - 11/25/2024 03:30 PM)?Normal* Value Reference Range U matthew Acid 6.6 3.4-8.0 - mg/dL * Eddie, Kayley 12/01/2024 04: 46:36 PM > See phone [...] stimated Average Glucose 125 - mg/dL * [facility], IT support 11/27/2024 09:30:14 : This order was created by the Interface. Eddie Kayley 12/01/2024 04:46:36 PM > See phone encounter * Procedure Codes: 3 075F SYST BP GE 130 - 139MM HG, 3079F DIAST BP 80-89 MM HG, 3044F HG A1C LEVEL LT 7.0% * Follow Up: 6 Months * Images: Billing Information: * Visit Code: 07306 Office Visit, Est Pt., Level 4. * Procedure Codes: 3075F SYST BP GE 130 - 139MM HG. 3079F DIAST BP 80-89 MM HG. 3044F HG A1C LEVEL LT 7.0%. * Electronic signature of Maribell Tanner MD on 05/04/2025 at 06:55 AM EDT Sign off status: Pending * Provider: Ronnie Tanner M.D. Date: 0 11/25/2024 Generated for Ruperti ng/Fawilderg/eTransmitting on: 0 05/04/2025 06:55 AM EDT History [...]
--- OUTSIDE RECORDS SUMMARY | 2025-02-03 12:30 | XMS_ITS ---
[facility] [address] [place] [phone] Care Team Providers Care Carver And Checkerer Specials Name Role Phone Ciro Silver Primary Care Provider Bailey Ahmadi Unavailable [phone] Allergies No Known Allergies Reason For Referral Diagnosis 1 Hernia (K46.9) Referral Organization [facility] Referring Provider First Name Bailey Referring Provider Last Name Daiana Referring Provider Speciality Physician Plywood Patcher Referred Provider Specialty General Surg simba General Notes Bailey Ahmadi 04:28:51 PM >Pt needs to see Dr. hCamberlain or Liz. Please call patient after 4pm., [...] DAY FOR 90 DAYS Active Vital Signs Weight 208.0 lbs 02/03/2025 Blood pressure systolic 120 mm Hg 02/04/20 Blood pressure diastolic 80 mm Hg 025 Heart Rate 87 /min 02/03/2025 Height 69 in 02/03/2025 BMI 30.71 kg/m2 02/03/2025 A Encounters Encounter Location Date Provider Diagnosis [facility] [address] [place], [place] [id number] 02/03/2025 Bailey Ahmadi Hernia K46.9 Assessments Encounter Date Diagnosis (ICD Code) Assessment Notes Treatment Notes Treatment Clinical Notes Section Notes 02/03/2025 Hernia (ICD-10 - K46.9) Plan Of Treatment Referrals Referral Date Details 02/03/2025 02/03/2025 Next Appt Details Follow Up: with surgery, Ana Cristina son: Provider Name:Silver Alexander , 05/26/2025 04:15:00 PM, [address], [address], [place], [place], [id number], Progress Notes * Devin GAGEDOB:1960 (64 yo M)Acc No.[id number]:02/03/2025 Progress Notes Patient: Devin BROWNE Provider: KISHA Pina :1960 A ge:64 Y S ex:Male Date:02/03/2025 Address:[address] [place], [place] [id number] Pcp:Silver Tnaner Subjective: * Chief Complaints: * 1 . [...] yes. Marital Status: . 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 Past smoking status: yes, PPD:1 , [...] * Images: Billing Information: * Visit Code: 30497 Office Visit, Est Pt., Level 3. * Procedure Codes: * Electronic signature of KISHA Ndiaye on 05/04/2025 at 06:55 AM EDT Sign off status: Pending * Provider: KISHA Pina Date: 0 02/03/2025 Generated for Madalyn hernandez/Salma/eTransmitting on: 0 05/04/2025 [...]
--- OUTSIDE RECORDS SUMMARY | 2025-04-14 06:15 | XMS_ITS ---
Author Organization [facility] Address [address] [place], [place] [id number] Care Team Providers Care Electrical Contractor Name Role Phone Ciro Silver Primary Care Provider Allergies No Known Allergies Results Component Value Reference Range Notes Pulmonary Function Complete Reviewed date:04/30/2025 12:30:48 PM Interpretation: Performing Lab: Notes/Report: REASON FOR VISIT hernia repair f/u Medications Medication SIG (Take, Route, Frequency, Duration) Notes Start Date End Date Status Zolpidem Tartrate 10 MG 1 tablet at bedt zheng as needed Orally Once a day; Duration: 90 days 03/22/2025 Active Atorvastatin Calcium 40 MG 1 tablet at b edtime orally Once a day; Duration: 90 days Active Montelukast Sodium 10 MG 1 tablet Orally once daily; Duration: 90 days Active amLODIPine Besylate 10 MG 1 tablet Orall y Once a day; Duration: 90 days Active Nabumetone 750 MG TAKE 2 TABLETS BY [facility] EVERY DAY FOR 90 DAYS; Duration: 90 Active CPAP SUPPLIES DIRECTED 10/10/2022 Act princess CareTouch CPAP & BIPAP Hose 1 DIRECTED 10/18/19 23 Active Loratadine 10 MG 1 tablet Orally Once a day; Duration: 90 days Active Albuterol Sulfate HFA 108 (90 Base) MCG/ACT INHALE 2 PUFFS EVERY 6 HOURS NEEDED 30; Duration: 30 Active Contrave 8-90 MG as directed Orally O nce a day; Duration: 90 days 05/27/2024 Active Benzonatate 200 MG 1 capsule as needed Orally Three times a day 04/14/2025 Active SM Vitamin D3 100 MCG (4000 UT) 1 tab(s) orally once a day 03/23/2011 Active Aspirin 325 MG 1 tab(s) orally once a day 06/06/2015 Active Problems Problem Type SNOMED Code ICD Code Onset Dates Problem Status W/U Status Risk Notes Problem Cigarette smoker (35932769) Cigarette smoker (F17.210) Active confirmed Vital Signs Weight 208.0 lbs 04/14/2025 Blood pressure systolic 130 mm Hg 04/14/20 25 Blood pressure diastolic 78 mm Hg 025 Heart Rate 94 /min 04/14/2025 Height 69 in 04/14/2025 BMI 30.71 kg/m2 04/14/2025 Encounters Encounter Location Date Provider Diagnosis [facility] [address] [place] [id number] 04/14/2025 Silver Tanner Persistent cough R05 .3 ; SOB (shortness of breath) R06.02 ; Cigarette smoker F17.210 and Colon cancer screening Z12.11 Assessments Encounter Date Diagnosis (ICD Code) Assessment Notes Treatment Notes Treatment Clinical Notes Section Notes 04/14/2025 Persistent cough (ICD-10 - R05.3) 04/14/2025 SOB (shortness of breath) (ICD-10 - R06.02) 04/14/2025 Cigarette smoker (ICD-10 - F17.210) Smoking cessation and necessary changes of behavior discussed with patient 04/14/2025 Colon cancer screening (ICD-10 - Z12.11) Plan Of Treatment Medication Medication Name Sig Start Date Stop Date Notes Benzonatate 200 MG 1 capsule as needed Orally Three times a day 04/14/2025 Treatment Notes Assessment Notes Cigarette smoker Smoking cessation an d necessary changes of behavior discussed with patient Pending Test Test Name Order Date colonoscopy 04/14/2025 Next Appt Details Follow Up: via phone to repo rt test results, Reason: Provider Name:Silver Alexander ry, 05/26/2025 04:15:00 PM, [address], [address], [place], [id number], Progress Notes * Devin FIGUEROADOB:1960 (64 yo M)Acc No.[id number]:04/14/2025 Patient: Devin BROWNE Provider: Ronnie Tanner M.D. :1960 A ge:64 Y S ex:Male Date:04/14/2025 Address:[address] [place] [address] HODA, Dwayne HAAS [phone] Subjective: * Chief Complaints: * 1 . Hernia repair f/u. * HPI: H PI: 64 year old male presents with c/o Here for follow up on: 0 03/29/2025 Ventral Hernia repair by Dr. Hill. Pt states he is doing well and has no concerns at this time. * ROS: D ERMATOLOGY: no R sonali. [...] . * Social History: C URRENT TOBACCO USE: Yes S moking Status: Patient does smoke, packs per day: 1, number of cigarettes per day: 20, Since age of: 15, Smoking preference: cigarettes. C affeine: yes, frequency:. Home smoke detector use: yes. Marital Status: . Occupation: [employer] in [place], [place]. Past smoking status: yes, PPD:1 , [...] , Taking CPAP SUPPLIES DIRECTED , Taking Contrave 8-90 MG Tablet Extended Release 12 Hour as directed Orally Once a day , Taking Albuterol Sulfate HFA 108 (90 Base) MCG/ACT Aerosol Solution INHALE 2 PUFFS EVERY 6 HOURS NEEDED 30 , Taking Loratadine 10 MG Tablet 1 tablet Orally Once a day , Taking Nabumetone 750 MG Tablet TAKE 2 TABLETS BY MOUTH EVERY DAY FOR 90 DAYS , Taking amLODIPine Besylate 10 MG Tablet 1 tablet Orally Once a day , Taking Montelukast Sodium 10 MG Tablet 1 tablet Orally once daily , Taking Atorvastatin Calcium 40 MG Tablet 1 tablet at bedtime orally Once a day , Taking Zolpidem Tartrate 10 MG Tablet 1 tablet at bedtime as needed Orally Once a day , Medication List reviewed and reconciled with the patient * Allergies: N .K.D.A. Objective: * Vitals: W t: 208.0, Temp: 97.8, BP: 130/78, HR: 94, Nurse: JOSTIN, Ht: 69, BMI:30.71. * Examination: G eneral Examination: General Appearance: N AD. H eart: R SR. L ungs:?clear to auscultation. P eripheral pulses: n ormal (2+) bilaterally. E xtremities:?no leg edema. Assessment: * Assessment: 1. P ersistent cough - R05.3 (Primary) 2 . S OB (shortness of breath) - R06.02 3 . C igarette smoker - F17.210 4 . C olon cancer screening - Z12.11 Plan: * Treatment: 2.?SOB (shortness of breath)?Imaging: Pulmonary Function Complete (Performed Date - 04/19/2025)* Nayeli Carson 04/14/2025 10:52 :19 AM EDT > no auth required; CPT code 42924; faxed to [facility] Sara Santiago 04/30/2025 12:30:42 PM EDT > See phone encounter 3.?Cigarette smoker? Notes: Smoking cessation and necessary changes of behavior discussed with patient??4.?Colon cancer screening?Imaging: colonoscopy* Nayeli De Dios 04/14 11:04:35 AM EDT > faxed to Dr. Kearns office * Follow Up: v ia phone to report test results * Images: Billing Information: * Visit Code: 01993 Office Visit, Est Pt., Level 4. * Procedure Codes: * Electronic signature of Maribell Tanner MD on 05/04/2025 at 06:55 AM EDT Sign off status: Pending * Provider: Ronnie Tanner M.D. Date: 04/14/2025 Generated for Madalyn hernandez/Salma/Edvinsmitting on: 05/04/2025 06:55 AM EDT History and Physical Notes * HPI (History of Present Illness) Category Sub-Category Detail Notes Category Not es HPI Here for follow up on: Ventral Hernia repair by Dr. Hill. Pt states he is doing well and has no concerns at this time Examination Category Sub-Category Detail Notes Category Not es General Examination Heart: RSR Lungs: clear to auscultatio n Extremities: no leg edema General Appearance: NAD Peripheral pulses: normal (2+) bilatera lly
--- OUTSIDE RECORDS SUMMARY | 2025-05-04 06:56 | XMS_ITS | Patient Health Record ---
[facility] Address [address] [place] [id number] Care Team Providers Care Director Trade Name Role Phone Abe Tannerian Primary Care Provider Bailey Ahmadi Unavailable [phone] Allergies No Known Allergies Results Component Value Reference Range Notes Pulmonary Function Complete Reviewed date:04/30/2025 12:30:48 PM Interpretation: Performing Lab: Notes/Report: CBC Fingerstick (in house) Reviewed date:09/09/2024 04:22:02 [...] Lab: Notes/Report: consider renal mass protocol CT P-Comprehensive Metabolic Pa flaco (CMP) Reviewed date:12/01/2024 04:46:42 PM Interpretation:Cr 1.57, gfr 59 Performing Lab: Notes/Report: CLIA: [id number] Renaldo Schwab MD, Knitted Garment Finisher [address] [place] [address] , [place] [address] Test performed by [facility] Sodium 140 135-145 mmol/L Potassium 4.4 3.5-5.3 [...] date:12/01/2024 04:46:42 PM Interpretation:6.0 Performing Lab: Notes/Report: CLIA: [id number] Renaldo Schwab MD, Knitted Garment Finisher [address] [place] [address] , [place] [address] Test performed by [facility] Hemoglobin A1C 6.0 <5.7 % The following HbA1c ranges recommended by the [place] [employer] (ADA) may be used as an aid in the diagnosis of diabetes mellitus. HbA1c Suggested Diagnosis >=6.5% Diabetic 5.7% - 6.4% Pre-Diabetic <5.7% Non-Diabetic P-Lipid Panel Reviewed date:12/01/2024 04:46:42 PM Interpretation:trigs 178 Performing Lab: Notes/Report: Test performed by [facility] [address] [place] [address] , [place] [address] Renaldo Schwab MD, Knitted Garment Finisher CLIA: [id number] Cholesterol 149 <200 mg/dL Triglycerides 178 <150 [...] Interpretation:Normal Performing Lab: Notes/Report: Test performed by [facility], [address] , [address], [place] [address] Renaldo Schwab MD, Knitted Garment Finisher CLIA: [id number] PSA 0.56 <4.00 ng/mL Please note this is an ultrasensitive PSA assay with a lower limit of detection of 0.014 ng/mL. This test is performed by the [employer] ECLIA methodology. Values obtained with different assay methods or kits cannot be directly compared. P-TSH reflex to FT4 Reviewed date:12/01/2024 04:46:43 PM Interpretation:Normal Performing Lab: Notes/Report: Test performed by [facility] [address] , [address], [place] [address] Renaldo Schwab MD, Knitted Garment Finisher CLIA: [id number] TSH reflex to FT4 1.79 0.43-5.25 mU/L P-Microalbumin/Creatinine, R andom Urine Sample Reviewed date:12/01/2024 04:46:43 PM Interpretation:a/c 75 Performing Lab: Notes/Report: Test performed by [facility] [address] , [address], [place] [address] Renaldo Schwab MD, Knitted Garment Finisher CLIA: [id number] Albumin/Creatinine Ratio, Urine 75 0-30 ug/m g Microalbumin, Urine, Random 9.9 Creatinine, Urine 132.0 P-Uric Acid Reviewed date:12/01/2024 04:46:43 PM Interpretation:Normal Performing Lab: Notes/Report: Test performed by [facility] [address] , [address], [place] [address] Renaldo Schwab MD, Knitted Garment Finisher CLIA: [id number] Uric Acid 6.6 3.4-8.0 mg/dL Estimated Average Glucose Reviewed date:12/01/2024 04:46:43 PM Interpretation:125 Performing Lab: Notes/Report: Test performed by [facility] [address] , [address], [place] [id number] Renaldo Schwab MD, Knitted Garment Finisher CLIA: [id number] Estimated Average Glucose (eAG) 125 Estimated Average [...] 91 >60 ML/MIN EGFR 75 >60 ml/min Medications Medication SIG (Take, Route, Frequency, Duration) [...] Once a day; Duration: 90 days Active CPAP SUPPLIES DIRECTED 10/10/2022 Act princess CareTouch CPAP & BIPAP Hose 1 DIRECTED 10/18/19 23 Active SM Vitamin D3 100 MCG (4000 UT) 1 tab(s) orally once a day 03/23/2011 Active Aspirin 325 MG 1 tab(s) orally once a day 06/06/2015 Active Nabumetone 750 MG TAKE 2 TABLETS BY [facility] EVERY DAY FOR 90 DAYS; Duration: 90 Active Loratadine 10 MG 1 tablet Orally Once a day; Duration: 90 days Active Albuterol Sulfate HFA 108 (90 Base) MCG/ACT INHALE 2 PUFFS EVERY 6 HOURS NEEDED 30; Duration: 30 Active Contrave 8-90 MG as directed Orally O nce a day; Duration: 90 days 05/27/2024 Active Benzonatate 200 MG 1 capsule as needed Orally Three times a day 04/14/2025 Active Immunizations Vaccine Route Administration Date Status [...] Status Risk Notes Problem Vitamin D deficiency (19683021) Vitamin D deficiency NOS (268.9) Active confirmed Problem Insomnia (351601105) Insomnia (G47.00) Active confirmed Problem Essential hypertension (97355723) Essential hypertension (I10) Active confirmed Problem Body mass index 30+ - obesity (803126584) BMI 30.0-30.9,adult (Z68.30) Active confirmed Problem Impaired fasting glucose (293642598) Impaired fasting glucose (R73.01) Active confirmed Problem Vitamin D deficiency (15608126) Vitamin D deficiency, unspecified (E55.9) Active confirmed Problem Mixed hyperlipidemia (605366887) Mixed hyperlipidemia (E78.2) Active confirmed Problem Depressive disorder (78007341) Depressive disorder (F32.9) Active confirmed Problem Obstructive sleep apnea syndrome (02826497) Obstructive sleep apnea syndrome (G47.33) Active confirmed Problem Gout (03366284) Gout, unspecifie d cause, unspecified chronicity, unspecified site (M10.9) Active confirmed Problem Osteoarthritis of knee (372848602) Primary osteoarthritis of both knees (M17.0) Active confirmed Problem Cigarette smoker (09257841) Cigarette smoker (F17.210) Active confirmed Problem Hypersomnia (17844865) Hypersomnia (G47.10) Active confirmed Problem Tobacco user (173374842) Cigarette nicotine dependence without complication (F17.210) Active confirmed Problem Artificial knee joint present (539231980231) Status post right knee replacement (Z96.651) Active confirmed Problem Allergic rhinitis (27363039) Allergic rhinitis, unspecified allergic rhinitis trigger, unspecified rhinitis seasonality (J30.9) Active confirmed Problem Arthritis of right knee (2121221534084377 ) Arthritis of right knee (M17.11) Active confirmed Problem Obesity (931931420) Non morbid obesity (E66.9) Active confirmed Problem Arthritis of left knee (5503412493701044 ) Arthritis of left knee (M17.12) Active confirmed Problem Chronic obstructive lung disease (63148454) COPD without exacerbation (J44.9) Active confirmed Problem Absent kidney (355138523) S/p nephrectomy (Z90.5) Active confirmed Vital Signs Heart Rate 94 /min 04/14/2025 Blood pressure diastolic 78 mm Hg 04/14/2025 Height 69 in 04/14/2025 Blood pressure systolic 130 mm Hg 04/14/2025 Weight 208.0 lbs 04/14/2025 BMI 30.71 kg/m2 04/14/2025 Encounters Encounter Location Date Provider Diagnosis [facility] [address] [place], [place] [id number] 04/30/2025 Silver Columbia [facility] [address] [place], [place] [id number] 06/12/2024 Silver Columbia [facility] [address] [place], [place] [id number] 06/22/2024 Silver Columbia 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 [facility] [address] [place], [place] [id number] 06/25/2024 Silver Columbia Insomnia G47.00 [facility] [address] [place], [place] [id number] 06/29/2024 Silver Columbia Non morbid obesity E 66.9 [facility] [address] [place], [place] [id number] 07/03/2024 Silver Columbia Non morbid obesity E 66.9 [facility] [address] [place], [place] [id number] 07/16/2024 Silver Columbia 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 [facility] [address] [place] [id number] 07/28/2024 Silver Columbia [facility] [address] [place] [id number] 09/22/2024 Silver Columbia Insomnia G47.00 [facility] [address] [place] [id number] 11/26/2024 Silver Columbia [facility] [address] [place] [id number] 12/01/2024 Silver Columbia [facility] [address] [place] [id number] 12/21/2024 Silver Columbia Insomnia G47.00 [facility] [address] [place] [id number] 01/18/2025 Sliver Columbia [facility] [address] [place] [id number] 03/22/2025 Silver Columbia Insomnia G47.00 [facility] [address] [place] [id number] 04/30/2025 Silver Columbia Persistent cough R05 .3 [facility] [address] [place] [id number] 04/14/2025 Silver Columbia Persistent cough R05 .3 ; SOB (shortness of breath) R06.02 ; Cigarette smoker F17.210 and Colon cancer screening Z12.11 [facility] [address] [facility] [address] [place], [place] [id number] 05/27/2024 Silver [place] Essential hypertensi on I10 ; Mixed hyperlipidemia E78.2 ; Polyarthralgia M25.50 ; Impaired fasting glucose R73.01 ; Personal history of nicotine dependence Z87.891 ; Screening for lung cancer Z12.2 ; Non morbid obesity E66.9 and Encounter for immunization Z23 [facility] [address] [place], [place] [id number] 09/09/2024 Silver Columbia Acute URI J06.9 and S/p nephrectomy Z90.5 [facility] [address] [place], [place] [id number] 11/25/2024 Silver [place] Essential hypertensi on I10 ; Mixed hyperlipidemia E78.2 ; Vitamin D deficiency, unspecified E55.9 ; Impaired fasting glucose R73.01 ; Gout, unspecified cause, unspecified chronicity, unspecified site M10.9 ; Prostate cancer screening Z12.5 ; S/p nephrectomy Z90.5 and BMI 30.0-30.9,adult Z68.30 [facility] [address] [place], [place] [id number] 02/03/2025 Baileykelly Ahmadi Hernia K46.9 Assessments Encounter Date Diagnosis (ICD Code) Assessment Notes Treatment Notes Treatment Clinical Notes Section Notes 11/25/2024 Essential hypertension (ICD-10 - I10) 04/14/2025 Persistent cough (ICD-10 - R05.3) 03/22/2025 Insomnia (ICD-10 - G47.00) 02/03/2025 Hernia (ICD-10 - K46.9) 12/21/2024 Insomnia (ICD-10 - G47.00) 09/22/2024 Insomnia (ICD-10 - G47.00) 09/09/2024 Acute URI (ICD-10 - J06.9) 09/09/2024 S/p nephrectomy (ICD-10 - Z90.5) 07/16/2024 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) 07/03/2024 Non morbid obesity (ICD-10 - E66.9) 06/29/2024 Non morbid obesity (ICD-10 - E66.9) 06/25/2024 Insomnia (ICD-10 - G47.00) 06/22/2024 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) 04/30/2025 Persistent cough (ICD-10 - R05.3) 04/14/2025 SOB (shortness of breath) (ICD-10 - R06.02) 11/25/2024 Mixed hyperlipidemia (ICD-10 - E78.2) 05/27/2024 Essential hypertension (ICD-10 - I10) 05/27/2024 Mixed hyperlipidemia (ICD-10 - E78.2) 11/25/2024 Vitamin D deficiency, unspecified (ICD-10 - E55.9) 05/27/2024 Polyarthralgia (ICD-10 - M25.50) 04/14/2025 Cigarette smoker (ICD-10 - F17.210) Smoking cessation and necessary changes of behavior discussed with patient 11/25/2024 Impaired fasting glucose (ICD-10 - R73.01) 04/14/2025 Colon cancer screening (ICD-10 - Z12.11) 05/27/2024 Impaired fasting glucose (ICD-10 - R73.01) 11/25/2024 Gout, unspecified cause, unspecified chronicity, unspecified site (ICD-10 - M10.9) 05/27/2024 Personal history of nicotine dependence (ICD-10 - Z87.891) 11/25/2024 Prostate cancer screening (ICD-10 - Z12.5) 05/27/2024 Screening for lung cancer (ICD-10 - Z12.2) 05/27/2024 Non morbid obesity (ICD-10 - E66.9) 11/25/2024 S/p nephrectomy (ICD-10 - Z90.5) Need reports from urology including pathology 11/25/2024 BMI 30.0-30.9,adult (ICD-10 - Z68.30) 05/27/2024 Encounter for immunization (ICD-10 - Z23) Plan Of Treatment Pending Test Test Name Order Date colonoscopy 04/14/2025 sleep study 11/25/2023 Next Appt Details Provider Name:Silver Alexander ry, 05/26/2025 04:15:00 PM, [address], [place], [place], [id number], Insurance Providers Payer Name Payer Address Payer Phone Subscriber Number Group Number Insured Name Patient Relationship to Insured Coverage Start Date Coverage End Date [employer] [address] [place] [address] [id number] Devin Cazares Self - patient is the insured Medications [...]
--- NOTE | 2025-05-04 07:00 | CT_ITS ---
FINAL REPORT TECHNIQUE: Axial CT images were performed from the lung bases through the iliac crests. Coronal and sagittal reformats were submitted.This study was performed with techniques to keep radiation doses as low as reasonably achievable (ALARA). Individualized dose reduction techniques using automated exposure control or adjustment of mA and/or kV according to the patient''''s size were employed. CLINICAL HISTORY: Hernia COMPARISON: 02/24/2025 FINDINGS: Lung bases are clear. The unenhanced liver is fatty infiltrated. Gallbladder is present. Spleen, adrenal glands and pancreas are without acute abnormality. The left kidney is absent. There are no right renal stones or hydronephrosis. GI tract demonstrates no evidence of obstruction. The appendix is normal. Again seen is a supraumbilical hernia to the left of midline. There is fluid along the anterior aspect of the hernia sac. It is unclear if there has been interval surgery. Transverse colon extends to the orifice of the hernia but not into the hernia itself. There is no lymphadenopathy. IMPRESSION: 1. Fluid density now within the hernia sac. It is unclear if there has been interval repair. 2. Transverse colon no longer extending into the hernia defect. Reviewed, Interpreted and Dictated by Radha Anthony MD Transcribed by Erika Osullivan Authenticated and [facility]
== END 2025-05-04 23:59 | disposition home or self-care (01) ==
LOC: RAD 06:53
PROVIDERS: PCP Family Medicine; Visit Provider Surgery
DX: K43.2 Incisional hernia without obstruction or gangrene (principal); R93.5 Abnormal findings on diagnostic imaging of other abdominal regions, including retroperitoneum
CPT/HCPCS: 74150